=== PATIENT | female | born 1975 | race Caucasian/White ===

== ENCOUNTER 2016-08-31 06:26 | Inpatient (IN) | payer OTHER ==
[2016-08-31] MEDS ORDERED: SODIUM CHLORIDE 0.9% 500 ML IV STA (06:45)
--- NOTE | 2016-08-31 06:48 | ED ---
General Adult HPI - General Source: patient, RN notes reviewed Mode of arrival: ambulatory Limitations: no limitations <Davion Iqbal - Last Filed: 08/31/16 06:48> <Nadeem Saunders - Last Filed: 08/31/16 10:30> - General Chief complaint: Neuro Symptoms/Deficit Stated complaint: right side numbness Time Seen by Provider: 08/31/16 06:35 - History of Present Illness Initial comments: This is a 40-year-old female presents to the emergency department with past medical history significant for coronary artery disease with a stent, hypertension, and hypercholesterolemia. Patient states she went to bed last night just after she had an episode of chest pain which she took a nitroglycerin for. Patient states the pain went away she went to bed. Patient states this is her typical angina and nothing was different about this episode of angina. Patient states when she awoke this morning at about 6:00 she had numbness and weakness to her right leg. Patient states it was difficult for her to complete because of the weakness in the leg she denies any weakness or numbness in the right arm. Patient denies any visual disturbance does not note any facial drooping. Patient has no slurred speech. Patient denies any recent fever or chills. Patient denies any chest pain currently patient denies any difficulty breathing shortness breath. Patient denies recent fever or chills or cough. Patient denies abdominal pain patient denies nausea vomiting or diarrhea. Patient denies headache. (Davion Iqbal) - Related Data Home Medications Medication Instructions Recorded Confirmed Atorvastatin [Lipitor] 80 mg PO DAILY 07/14/14 08/31/16 Clopidogrel Bisulfate [Plavix] 75 mg PO DAILY 07/14/14 08/31/16 amLODIPine BESYLATE [Amlodipine 5 mg PO DAILY 07/14/14 08/31/16 Besylate] Aspirin 81 mg PO DAILY 11/14/14 08/31/16 Fluticasone Nasal [place] [Flonase 2 spr EA NOSTRIL BID 12/17/15 08/31/16 Nasal [place]] Lisinopril [Prinivil] 20 mg PO BID 12/17/15 08/31/16 Lisinopril [Zestril] 5 mg PO BID 12/17/15 08/31/16 Previous Rx's Medication Instructions Recorded Nitroglycerin Sl Tabs [Nitrostat] 0.4 mg SUBLINGUAL Q5M PRN #0 tab 11/16/14 Albuterol Nebulized [Ventolin 2.5 mg INHALATION Q4H #20 ampul 12/17/15 Nebulized] Azithromycin [Zithromax] 0 mg PO DIRECTED #6 tab 12/17/15 guaiFENesin/CODEINE PHOSPHATE 10 ml PO Q6HR PRN #120 ml 12/17/15 [Cheratussin AC Syrup] Allergies Allergy/AdvReac Type Severity Reaction Status Date / Time No Known Allergies Allergy Verified 08/31/16 06:37 Review of Systems ROS Other: All systems not noted in ROS Statement are negative. <Davion Iqbal - Last Filed: 08/31/16 06:48> ROS Other: All systems not noted in ROS Statement are negative. <Nadeem Saunders - Last Filed: 08/31/16 10:30> ROS Statement: Those systems with pertinent positive or pertinent negative responses have been documented in the HPI. Past Medical History Past Medical History: Coronary Artery Disease (CAD), Chest Pain / Angina, Hyperlipidemia, Hypertension, Myocardial Infarction ([place]), Pneumonia Additional Past Medical History / Comment(s): back pain History of Any Multi-Drug Resistant Organisms: None Reported Past Surgical History: Section, Heart Catheterization With Stent Additional Past Surgical History / Comment(s): left leg sx Past Psychological History: No Psychological Hx Reported, Anxiety, Depression Smoking Status: Current every day smoker Past Alcohol Use History: None Reported Past Drug Use History: None Reported <Davion Iqbal - Last Filed: 08/31/16 06:48> General Exam Limitations: no limitations <Davion Iqbal - Last Filed: 08/31/16 06:48> <Nadeem Saunders - Last Filed: 08/31/16 10:30> - General Exam Comments Initial Comments: GENERAL: Patient is well-developed and well-nourished. Patient is nontoxic and well- hydrated and is in mild distress. ENT: Neck is soft and supple. No significant lymphadenopathy is noted. Oropharynx is clear. Moist mucous membranes. Neck has full range of motion without eliciting any pain. EYES: The sclera were anicteric and conjunctiva were pink and moist. Extraocular movements were intact and pupils were equal round and reactive to light. Eyelids were unremarkable. PULMONARY: Unlabored respirations. Good breath sounds bilaterally. No audible rales rhonchi or wheezing was noted. CARDIOVASCULAR: There is a regular rate and rhythm without any murmurs gallops or rubs. ABDOMEN: Soft and nontender with normal bowel sounds. No palpable organomegaly was noted. There is no palpable pulsatile mass. SKIN: Skin is clear with no lesions or rashes and otherwise unremarkable. NEUROLOGIC: Patient is alert and oriented x3. Cranial nerves II through XII are grossly intact. Patient has difficulty with plantar flexion and flexing at the hip. Patient also says her sensation of the right leg is decreased when compared to the left leg but she can feel the leg.. Normal speech, volume and content. Symmetrical smile. MUSCULOSKELETAL: Normal extremities with adequate strength and full range of motion. LYMPHATICS: No significant lymphadenopathy is noted PSYCHIATRIC: Normal psychiatric evaluation. (Davion Iqbal) Course <Davion Iqbal - Last Filed: 08/31/16 06:48> <Nadeem Saunders - Last Filed: 08/31/16 10:30> Vital Signs 08/31/16 08/31/16 08/31/16 06:34 07:13 07:44 Temperature 97.9 F Pulse Rate 103 H 97 98 Respiratory 22 18 18 Rate Blood Pressure 117/69 141/82 128/59 O2 Sat by Pulse 97 100 Oximetry 08/31/16 08/31/16 08:44 09:44 Temperature Pulse Rate 93 88 Respiratory 18 18 Rate Blood Pressure 132/65 137/63 O2 Sat by Pulse 98 96 Oximetry - Reevaluation(s) Reevaluation #1: 08/31/16 10:25 Reevaluation patient initially shows some improvement and movement she still had a lot of back pain. She did state she was supposed be seen a neurologist in 2 days for evaluation of her back pain (Nadeem Saunders) Reevaluation #2: 08/31/16 10:27 I did a long discussion with patient and her . Patient be admitted with consultation by neurology. (Nadeem Saunders) Medical Decision Making <Davion Iqbal - Last Filed: 08/31/16 06:48> - Lab Data Result diagrams: 08/31/16 07:10 08/31/16 07:10 <Nadeem Saunders - Last Filed: 08/31/16 10:30> - Medical Decision Making Dr. Chip martinez taking over the care of this patient at 7 AM (Davion Iqbal) - Lab Data Lab Results 08/31/16 08/31/16 08/31/16 Range/Units 07:10 07:10 07:10 WBC 14.5 H (3.8-10.6) k/uL RBC 4.66 (3.80-5.40) m/uL Hgb 14.3 (11.4-16.0) gm/dL Hct 43.3 (34.0-46.0) % MCV 92.9 (80.0-100.0) fL MCH 30.8 (25.0-35.0) pg MCHC 33.1 (31.0-37.0) g/dL RDW 12.9 (11.5-15.5) % Plt Count 349 (150-450) k/uL Neutrophils % 75 % Lymphocytes % 17 % Monocytes % 5 % Eosinophils % 2 % Basophils % 0 % Neutrophils # 10.8 H (1.3-7.7) k/uL Lymphocytes # 2.5 (1.0-4.8) k/uL Monocytes # 0.7 (0-1.0) k/uL Eosinophils # 0.2 (0-0.7) k/uL Basophils # 0.1 (0-0.2) k/uL PT (9.0-12.0) sec INR (<1.1) APTT (22.0-30.0) sec Sodium 140 (137-145) mmol/L Potassium 4.1 (3.5-5.1) mmol/L Chloride 104 (98-107) mmol/L Carbon Dioxide 23 (22-30) mmol/L Anion Gap 13 mmol/L BUN 20 H (7-17) mg/dL Creatinine 0.90 (0.52-1.04) mg/dL Est GFR (MDRD) Af Amer >60 (>60 ml/min/1.73 sqM) Est GFR (MDRD) Non-Af >60 (>60 ml/min/1.73 sqM) Glucose 128 H (74-99) mg/dL Calcium 9.8 (8.4-10.2) mg/dL Total Bilirubin 0.4 (0.2-1.3) mg/dL AST 23 (14-36) U/L ALT 60 H (9-52) U/L Alkaline Phosphatase 124 (38-126) U/L Total Creatine Kinase <20 L (30-135) U/L CK-MB (CK-2) <0.2 (0.0-2.4) ng/mL CK-MB (CK-2) Rel Index Troponin I <0.012 (0.000-0.034) ng/mL Total Protein 6.8 (6.3-8.2) g/dL Albumin 3.9 (3.5-5.0) g/dL 08/31/16 Range/Units 07:10 WBC (3.8-10.6) k/uL RBC (3.80-5.40) m/uL Hgb (11.4-16.0) gm/dL Hct (34.0-46.0) % MCV (80.0-100.0) fL MCH (25.0-35.0) pg MCHC (31.0-37.0) g/dL RDW (11.5-15.5) % Plt Count (150-450) k/uL Neutrophils % % Lymphocytes % % Monocytes % % Eosinophils % % Basophils % % Neutrophils # (1.3-7.7) k/uL Lymphocytes # (1.0-4.8) k/uL Monocytes # (0-1.0) k/uL Eosinophils # (0-0.7) k/uL Basophils # (0-0.2) k/uL PT 9.6 (9.0-12.0) sec INR 0.9 (<1.1) APTT 22.5 (22.0-30.0) sec Sodium (137-145) mmol/L Potassium (3.5-5.1) mmol/L Chloride (98-107) mmol/L Carbon Dioxide (22-30) mmol/L Anion Gap mmol/L BUN (7-17) mg/dL Creatinine (0.52-1.04) mg/dL Est GFR (MDRD) Af Amer (>60 ml/min/1.73 sqM) Est GFR (MDRD) Non-Af (>60 ml/min/1.73 sqM) Glucose (74-99) mg/dL Calcium (8.4-10.2) mg/dL Total Bilirubin (0.2-1.3) mg/dL AST (14-36) U/L ALT (9-52) U/L Alkaline Phosphatase (38-126) U/L Total Creatine Kinase (30-135) U/L CK-MB (CK-2) (0.0-2.4) ng/mL CK-MB (CK-2) Rel Index Troponin I (0.000-0.034) ng/mL Total Protein (6.3-8.2) g/dL Albumin (3.5-5.0) g/dL Disposition <Davion Iqbal - Last Filed: 08/31/16 06:48> <Nadeem Saunders - Last Filed: 08/31/16 10:30> Clinical Impression: Transient cerebral ischemia, Lumbar radiculopathy Disposition: ADMITTED IP TO THIS HOSP Condition: Stable Referrals: Bela Gant MD [Primary Care Provider] - 1-2 days
[2016-08-31 07:14] VITALS: RESP 18
[2016-08-31 07:22] LABS: Basophils # (A) 0.1 k/uL (0-0.2); Basophils % (A) 0 %; CH 30.5; CHCM 32.9; Eosinophils # (A) 0.2 k/uL (0-0.7); Eosinophils % (A) 2 %; HCT 43.3 % (34.0-46.0); HDW 2.11; HGB 14.3 gm/dL (11.4-16.0); Luc # (Auto) 0.25; Luc % (Auto) 2; Lymphocytes # (A) 2.5 k/uL (1.0-4.8); Lymphocytes % (A) 17 %; MCH 30.8 pg (25.0-35.0); MCHC 33.1 g/dL (31.0-37.0); MCV 92.9 fL (80.0-100.0); Monocytes # (A) 0.7 k/uL (0-1.0); Monocytes % (A) 5 %; Neutrophils # (A) 10.8 k/uL (1.3-7.7); Neutrophils % (A) 75 %; RBC 4.66 m/uL (3.80-5.40); RDW 12.9 % (11.5-15.5); WBC 14.5 k/uL (3.8-10.6); WBC (Perox) 14.26
[2016-08-31 07:31] LABS: ALT 60 U/L (9-52); AST 23 U/L (14-36); Alkaline Phosphatase 124 U/L (38-126); Anion Gap 13 mmol/L; Blood Urea Nitrogen 20 mg/dL (7-17); Calcium 9.8 mg/dL (8.4-10.2); Carbon Dioxide 23 mmol/L (22-30); Chloride 104 mmol/L (98-107); Glucose 128 mg/dL (74-99); Non-African American GFR(MDRD) >60 (>60 ml/min/1.73 sqM); Potassium 4.1 mmol/L (3.5-5.1); Sodium 140 mmol/L (137-145); Total Bilirubin 0.4 mg/dL (0.2-1.3); Total Protein 6.8 g/dL (6.3-8.2)
[2016-08-31 07:33] LABS: INR 0.9 (<1.1); Partial Thromboplastin Time 22.5 sec (22.0-30.0); Prothrombin Time 9.6 sec (9.0-12.0)
[2016-08-31 07:45] LABS: Creatine Kinase <20 U/L (30-135)
[2016-08-31 07:57] LABS: Creatine Kinase MB <0.2 ng/mL (0.0-2.4); Troponin I <0.012 ng/mL (0.000-0.034)
--- NOTE | 2016-08-31 08:28 | CT ---
EXAMINATION TYPE: CT brain wo con DATE OF EXAM: 08/31/2016 8:25 AM COMPARISON: CT brain March 23, 2014 HISTORY: Patient unable to move her right leg, no strength. Neural deficits CT DLP: 1108.4 mGycm Automated exposure control for dose reduction was used. FINDINGS: There is no acute intracranial hemorrhage, mass effect, or midline shift identified. The ventricles and sulci are within normal limits in size. Estrella-white matter differentiation is preserved. The globe s are intact bilaterally. Some opacification right sphenoid sinus could reflect cyst or polyp or patc hy sinus disease on axial image 10 otherwise paranasal sinuses are clear. Punctate skin densities ove r nasal bridge are redemonstrated. IMPRESSION: No acute intracranial hemorrhage, mass effect, or midline shift is seen.
[2016-08-31] MEDS ORDERED: KETOROLAC 30 MG/ML 1 ML VIAL IVP STA (09:03)
--- NOTE | 2016-08-31 09:12 | XR ---
EXAMINATION TYPE: XR chest 2V DATE OF EXAM: 08/31/2016 8:53 AM COMPARISON: Chest x-ray December 17, 2015. HISTORY: History of COPD, cardiac coronary stents, and CHF presents with numbness and weakness. TECHNIQUE: Frontal and lateral views of the chest are obtained. FINDINGS: There is no focal air space opacity, pleural effusion, or pneumothorax seen. The cardiac silhouette size is within normal limits. The osseous structures are intact. IMPRESSION: No acute cardiopulmonary process. No significant change from prior.
[2016-08-31] MEDS ORDERED: SODIUM CHLORIDE 0.9% 1,000 ML IV STA (09:17)
[2016-08-31] MEDS ORDERED: NITROGLYCERIN SL TABS 0.4 MG TAB SUBLINGUAL PRN (10:32)
[2016-08-31] MEDS: SODIUM CHLORIDE 0.9% 1,000 ML IV SCH (10:56)
[2016-08-31] MEDS: GABAPENTIN 400 MG CAP PO SCH ×3 (13:31→21:41)
[2016-08-31] MEDS: HYDROcodone/APAP 7.5-325MG 1 EACH TAB PO PRN ×2 (14:17→21:44)
--- NOTE | 2016-08-31 15:32 | US ---
EXAMINATION TYPE: US carotid duplex BILAT DATE OF EXAM: 08/31/2016 2:08 PM COMPARISON: CT Brain on PACS CLINICAL HISTORY: right leg weakness, bilateral loss of vision and hearing for short period of time; cholesterol deposits are noted on bilateral eyelids; prior MA 2010 per patient; stenosis per order; c igarette smoker x 1ppd x 20 years per patient EXAM MEASUREMENTS: RIGHT: Peak Systolic Velocity (PSV) cm/sec ----- Right CCA: 104.2 ----- Right ICA: 108.1 ----- Right ECA: 117.7 ICA/CCA ratio: 1.0 RIGHT: End Diastole cm/sec ----- Right CCA: 28.9 ----- Right ICA: 43.4 ----- Right ECA: 7.9 LEFT: Peak Systolic Velocity (PSV) cm/sec ----- Left CCA: 119.4 ----- Left ICA: 106.2 ----- Left ECA: 106.1 ICA/CCA ratio: 0.9 LEFT: End Diastole cm/sec ----- Left CCA: 38.6 ----- Left ICA: 43.2 ----- Left ECA: 17.5 VERTEBRALS (direction of flow): Right Vertebral: Antegrade Left Vertebral: Antegrade TECHNOLOGIST IMPRESSION: Mild to moderate intimal wall thickening is noted at bilateral carotid bifu rcation, but PSV is within normal limits bilaterally. IMPRESSION: The images and velocities suggest 10- 15% stenosis in both internal carotid arteries. Th ere is normal antegrade flow in both vertebral arteries. Criteria for Assigning % of Stenosis / Diameter reduction (Estimation based on the indirect measurements of the internal carotid artery velocities (ICA PSV). 1. Normal (no stenosis)=ICA PSV < 125 cm/s: ratio < 2.0: ICA EDV<40 cm/s. 2. Less than 50% stenosis=ICA PSV < 125 cm/s: ratio < 2.0: ICA EDV<40 cm/s. 3. 50 to 69% stenosis=ICA PSV of 125 to 230 cm/s: ration 2.0 ? 4.0: ICA EDV 40-100 cm/s. 4. Greater than 70% stenosis to near occlusion= ICA PSV > 230 cm/s: ratio > 4.0: ICA EDV > 100 cm/s. 5. Near occlusion= ICA PSV velocities may be low or undetectable: variable ratio and ICA EDV. 6. Total occlusion=unable to detect flow.
--- NOTE | 2016-08-31 15:37 | P.CNNES ---
History of Present Illness Consult date: 08/31/16 Reason for Consult: TIA and right sided lumbar radiculopathy. History of Present Illness: This patient is a 40-year-old right-handed white female who apparently early this morning awoke with numbness involving her right leg. Patient states the entire leg was numb and weak. She was unable to move the leg due to the significant weakness. She awoke at about 6 AM this morning and could not get up to stand due to this significant numbness and weakness involving the right leg. She does have a history of chronic low back pain and chronic pain syndrome for which she is being treated by Dr. Sosa. She is on pain medication prescribed by him. She was thinking this may have been an episode of pinched nerve however review of her MRI of the lumbar spine done on 2015 revealed very minimal changes in the lumbar spine. There was no significant nerve root impingement. She has been followed in the pain clinic with Dr. Sosa since this reevaluation. She apparently does not take any aspirin on any regular basis for secondary stroke prevention. She did not experience any facial drooping. Apparently she did experience some chest pain for which she took a nitroglycerin. She does follow in the cardiology clinic and does have a history of coronary artery disease with stent placement. Patient did not slur her speech. She did complain of visual problems in which she had blurred vision involving both eyes. This episode has since completely was all. Review of her MRI of the lumbar spine done in June of last year does not suggest acute lumbar radiculopathy based on these results. Patient has regained strength of the right leg. Her vision also is back to baseline. Her clinical history is now consistent with probable TIA syndrome affecting the left hemisphere. We have recommended a complete stroke evaluation for the patient. Her overall prognosis at this time remains very guarded. Neurology is now been consulted for further evaluation and recommendations. Review of Systems Constitutional: Denies chills, Denies fever Eyes: denies blurred vision, denies pain Ears, nose, mouth and throat: Denies headache, Denies sore throat Cardiovascular: Denies chest pain, Denies shortness of breath Respiratory: Denies cough Gastrointestinal: Denies abdominal pain, Denies diarrhea, Denies nausea, Denies vomiting Genitourinary: Denies dysuria, Denies hematuria Musculoskeletal: Denies myalgias Integumentary: Denies pruritus, Denies rash Neurological: Reports loss of vision, Reports transient paralysis, Denies numbness, Denies weakness Psychiatric: Denies anxiety, Denies depression Endocrine: Denies fatigue, Denies weight change Past Medical History Past Medical History: Coronary Artery Disease (CAD), Chest Pain / Angina, Heart Failure, Hyperlipidemia, Hypertension, Myocardial Infarction ([place]), Pneumonia Additional Past Medical History / Comment(s): back pain Last Myocardial Infarction Date:: 08-18-2011 History of Any Multi-Drug Resistant Organisms: None Reported Past Surgical History: Section, Cholecystectomy, Heart Catheterization With Stent Additional Past Surgical History / Comment(s): left leg sx Past Anesthesia/Blood Transfusion Reactions: Previous Problems w/ Anesthesia Additional Past Anesthesia/Blood Transfusion Reaction / Comment(s): HARD TIME WAKING UP AFTER ANESTHESIA. Date of Last Stent Placement:: 08-18-2011 Past Psychological History: Anxiety, Depression Smoking Status: Current every day smoker Past Alcohol Use History: None Reported Past Drug Use History: None Reported - Past Family History Mother History Unknown: Yes Father History Unknown: Yes Medications and Allergies Home Medications Medication Instructions Recorded Confirmed Type Atorvastatin [Lipitor] 80 mg PO DAILY 07/14/14 08/31/16 History Clopidogrel Bisulfate [Plavix] 75 mg PO DAILY 07/14/14 08/31/16 History Aspirin 81 mg PO DAILY 11/14/14 08/31/16 History Lisinopril [Prinivil] 20 mg PO BID 12/17/15 08/31/16 History Albuterol Inhaler [Ventolin Hfa 1 - 2 puff INHALATION RT-Q6H PRN 08/31/16 History Inhaler] Cyclobenzaprine [Flexeril] 10 mg PO TID 08/31/16 08/31/16 History Gabapentin 800 mg PO QID 08/31/16 08/31/16 History HYDROcodone/APAP 7.5-325MG [[place] 1 tab PO TID PRN 08/31/16 08/31/16 History 7.5-325] Loratadine [Claritin] 10 mg PO DAILY 08/31/16 08/31/16 History Allergies Allergy/AdvReac Type Severity Reaction Status Date / Time No Known Allergies Allergy Verified 08/31/16 11:11 Physical Examination - Vital Signs Vital Signs: Vital Signs Temp Pulse Resp BP Pulse Ox 08/31/16 11:48 96.9 F L 97 18 117/75 100 08/31/16 11:14 98.8 F Intake and Output 08/30/16 08/31/16 08/31/16 22:59 06:59 14:59 Intake Total 100 Balance 100 Intake: Oral 100 Other: Weight 139.5 kg Patient Weight 09/01/16 06:59 Weight 139.5 kg - Constitutional General appearance: average body habitus, cooperative - EENT EENT: PERRL, mucous membranes moist - Respiratory Respiratory: lungs clear, normal breath sounds - Cardiovascular Cardiovascular: regular rate, normal S1, normal S2 Extremities: no peripheral edema bilaterally - Gastrointestinal Gastrointestinal: normoactive bowel sounds - Integumentary Integumentary: normal - Neurologic Cranial nerve examination: PERRL, EOMI, VFF, V1/V2/V3 grossly intact, face symmetric, tongue midline, intact gag reflex, intact corneal reflex, normal palatal elevation Speech examination: intact Sensorimotor examination: intact Motor examination - right side: 4/5: hip flexors, knee extensors, dorsiflexion, toe extension (EHL), plantarflexion, 5/5: biceps, triceps, wrist flexion, wrist extension, team psychologist Motor examination - left side: 5/5: biceps, triceps, wrist flexion, wrist extension, team psychologist, hip flexors, knee extensors, dorsiflexion, toe extension (EHL) , plantarflexion Detailed sensory examination: intact Reflex and gait examination: intact Reflexes: 1+: ankle, bicep, knee, tricep - Musculoskeletal Musculoskeletal: no pain - Psychiatric Psychiatric: mood/affect appropriate Results - Laboratory Findings CBC and BMP: 08/31/16 07:10 08/31/16 07:10 Assessment and Plan (1) TIA (transient ischemic attack) Status: Acute Code(s): G45.9 - TRANSIENT CEREBRAL ISCHEMIC ATTACK, UNSPECIFIED (2) Vision loss, bilateral Status: Acute Code(s): H54.3 - UNQUALIFIED VISUAL LOSS, BOTH EYES (3) Coronary artery disease Status: Acute Code(s): I25.10 - ATHSCL HEART DISEASE OF [place] CORONARY ARTERY W/O ANG PCTRS (4) Hyperlipidemia Status: Acute Code(s): E78.5 - HYPERLIPIDEMIA, UNSPECIFIED Plan: This patient is a 40-year-old female admitted with episode of right-sided leg weakness and numbness. She also experienced episode of bilateral vision loss. Symptoms resolved very quickly early this morning. She was brought into the emergency room and underwent a computed tomography scan of the brain. CAT scan of the brain failed to reveal any evidence of acute stroke or hemorrhage. There was concern for possibility of lumbar radiculopathy. She underwent MRI of the lumbar spine back on 06/25/2016 which was reviewed and is negative for any significant disc herniation or compressive neuropathy. Patient symptoms of vision have completely resolved. She still complains of some numbness in the right leg. She does have history of chronic low back pain and is followed in the pain clinic with Dr. Sosa. Her neurological examination at this time is nonfocal. Would recommend a complete stroke evaluation for the patient. She should be maintained on Plavix aspirin for secondary stroke prevention. We will await further recommendations from the mold hoister for her chest pain symptoms. Would recommend PT OT evaluation possible subacute rehab for the patient. Her overall prognosis at this time remains very guarded. Time with Patient: Greater than 30
[2016-08-31] MEDS: ALBUTEROL NEBULIZED 2.5 MG/3 ML INHALATION SCH ×4 (16:21→23:58)
[2016-08-31] MEDS: CYCLOBENZAPRINE 10 MG TAB PO SCH ×2 (16:25→21:41)
[2016-08-31] MEDS ORDERED: LISINOPRIL 20 MG TAB PO SCH (21:00)
[2016-08-31] MEDS ORDERED: LISINOPRIL 5 MG TAB PO SCH (21:00)
[2016-09-01] MEDS: ALBUTEROL NEBULIZED 2.5 MG/3 ML INHALATION SCH ×5 (03:31→20:38)
[2016-09-01] MEDS: HYDROcodone/APAP 7.5-325MG 1 EACH TAB PO PRN ×2 (05:28→22:06)
[2016-09-01 06:22] LABS: CH 30.3; CHCM 32.2; HCT 40.4 % (34.0-46.0); HDW 2.05; MCH 30.5 pg (25.0-35.0); MCHC 32.3 g/dL (31.0-37.0); MCV 94.5 fL (80.0-100.0); RBC 4.28 m/uL (3.80-5.40); WBC 9.8 k/uL (3.8-10.6)
[2016-09-01 06:33] LABS: Anion Gap 8 mmol/L; Blood Urea Nitrogen 16 mg/dL (7-17); Calcium 9.1 mg/dL (8.4-10.2); Carbon Dioxide 28 mmol/L (22-30); Chloride 105 mmol/L (98-107); Glucose 103 mg/dL (74-99); Non-African American GFR(MDRD) >60 (>60 ml/min/1.73 sqM); Potassium 4.9 mmol/L (3.5-5.1); Sodium 141 mmol/L (137-145)
[2016-09-01] MEDS: LISINOPRIL 20 MG TAB PO SCH (08:17)
[2016-09-01] MEDS: CLOPIDOGREL 75 MG TAB PO SCH (08:17)
[2016-09-01] MEDS: ASPIRIN 325 MG TAB PO SCH (08:17)
[2016-09-01] MEDS: CYCLOBENZAPRINE 10 MG TAB PO SCH ×3 (08:17→22:06)
[2016-09-01] MEDS: ATORVASTATIN 80 MG TAB PO SCH (08:17)
[2016-09-01] MEDS: amLODIPine 5 MG TAB PO SCH (08:17)
[2016-09-01] MEDS: GABAPENTIN 400 MG CAP PO SCH ×4 (08:18→22:06)
[2016-09-01] MEDS ORDERED: PANTOPRAZOLE 40 MG/10 ML VIAL IVP SCH (09:00)
--- NOTE | 2016-09-01 11:07 | ECHOF ---
Referral Reason:TIA MEASUREMENTS -------- HEIGHT: 154.9 cm WEIGHT: 140.6 kg BP: 138/102 RVIDd: 2.8 cm (< 3.3) IVSd: 1.1 cm (0.6 - 1.1) LVIDd: 3.9 cm (3.9 - 5.3) LVPWd: 1.1 cm (0.6 - 1.1) IVSs: 1.6 cm LVIDs: 2.4 cm LVPWs: 1.4 cm LA Diam: 3.2 cm (2.7 - 3.8) LAESV Index (A-L): 18.12 ml/m Ao Diam: 2.9 cm (2.0 - 3.7) AV Cusp: 2.0 cm (1.5 - 2.6) MV EXCURSION: 14.881 mm (> 18.000) MV EF SLOPE: 53 mm/s (70 - 150) EPSS: 0.4 cm MV E Gerry: 1.32 m/s MV DecT: 200 ms MV A Gerry: 0.89 m/s MV E/A Ratio: 1.48 FINDINGS -------- Sinus rhythm. This was a technically adequate study. The left ventricular size is normal. There is borderline concentric left ventricular hypertrophy. Overall left ventricular systolic function is normal with, an EF between 60 - 65 %. The right ventricle is normal in size. The left atrium is normal in size. Normal LA size by volume 22+/-6 ml/m2. The right atrium is normal in size. Mild mitral annular calcification present. Right ventricular systolic pressure is normal at < 35 mmHg. The pulmonic valve was not well visualized. The aortic root size is normal. Normal inferior vena cava with normal inspiratory collapse consistent with estimated right atrial pressure of 5 mmHg. There is no pericardial effusion. CONCLUSIONS -------- 1. Sinus rhythm. 2. Right ventricular systolic pressure is normal at < 35 mmHg. 3. The pulmonic valve was not well visualized. 4. The aortic root size is normal. 5. Normal inferior vena cava with normal inspiratory collapse consistent with estimated right atrial pressure of 5 mmHg. 6. There is no pericardial effusion. 7. This was a technically adequate study. 8. The left ventricular size is normal. 9. There is borderline concentric left ventricular hypertrophy. 10. Overall left ventricular systolic function is normal with, an EF between 60 - 65 %. 11. The right ventricle is normal in size. 12. Normal LA size by volume 22+/-6 ml/m2. 13. The right atrium is normal in size. 14. Mild mitral annular calcification present. [employer] SPECIALIST: Jojo Cheney RDCS
--- NOTE | 2016-09-01 11:28 | HP ---
DATE OF ADMISSION: 08/31/2016 The patient is a 40 -year-old female ( ) came in with numbness of the right leg which started ( ) morning. The patient still complaining of numbness. The patient denying any weakness anywhere in the body. The patient denied any headache. Denied any vomiting. Patient denied any speech abnormality, seizure-like activity, loss of bowel or bladder incontinence. The patient also has symptoms of chest pressure-like sensation in the midsternal area, nonradiating, epigastric and retrosternal area about 5/10 in severity. Patient states she was cold and a bid diaphoretic. Denied any shortness of breath. She was complaining of lightheadedness and nausea. EKG did not show any acute ST-T wave changes although two more sets of troponins will be obtained tomorrow ( ) EKGs will be obtained ( ). The patient does have a history of chronic pain syndrome. Patient had MRI in the month of June which did not show any significant evidence of low back pain or discoloration contributing to her numbness in the right leg. Did not show any significant lumbar radiculopathy. REVIEW OF SYSTEMS: CONSTITUTIONAL: No fever, no malaise, no fatigue. HEENT: No recent visual problems or hearing problems. Denied any sore throat. CARDIOVASCULAR: As described in HPI. Patient denied any shortness of breath and the patient chest pain is nonpleuritic in nature, not associated with food. PULMONARY: No shortness of breath, no cough, no hemoptysis. GASTROINTESTINAL: No diarrhea, no nausea, no vomiting, no abdominal pain. Normoactive bowel sounds. NEUROLOGICAL: As described in HPI. HEMATOLOGICAL: Denies any bleeding or petechiae. GENITOURINARY: Denies any burning micturition, frequency, or urgency. MUSCULOSKELETAL/RHEUMATOLOGICAL: Denies any joint pain, swelling, or any muscle pain. ENDOCRINE: Denies any polyuria or polydipsia. The rest of the 14 point review of systems is negative. Past medical history is significant for coronary artery disease, congestive heart failure, hyperlipidemia, hypertension, myocardial infarction, section, cholecystectomy, cardiac catheterization with stent placement in the past. Anxiety. Depression. SOCIAL HISTORY: Patient continues to smoke. Denied any alcohol abuse or drug abuse. FAMILY HISTORY: Significant for mother with coronary artery disease and hypertension. Home medications include: 1. Atorvastatin. 2. Plavix. 3. Aspirin. 4. Lisinopril. 5. Albuterol. 6. Cyclobenzaprine. 7. The patient's last stent was placed in 2012. 8. Gabapentin. 9. Hydrocodone. 10. Acetaminophen. 11. Loratadine. ALLERGIES: No known drug allergies. PHYSICAL EXAMINATION: VITAL SIGNS: Temperature 96.9, pulse 97, respiratory rate 18, blood pressure ( ), saturating at 100% on room air. GENERAL: The patient is alert and oriented x3, not in any acute distress. Well developed, well nourished. HEENT: Pupils are round and equally reacting to light. EOMI. No scleral icterus. No conjunctival pallor. Normocephalic, atraumatic. No pharyngeal erythema. No thyromegaly. CARDIOVASCULAR: S1 and S2 present. No murmurs, rubs, or gallops. PULMONARY: Chest is clear to auscultation, no wheezing or crackles. ABDOMEN: Soft, nontender, nondistended, normoactive bowel sounds. No palpable organomegaly. MUSCULOSKELETAL: No joint swelling or deformity. EXTREMITIES: No cyanosis, clubbing, or pedal edema. NEUROLOGICAL: Gross neurological examination did not reveal any focal deficits. SKIN: No rashes. LABORATORY DATA: CBC, BMP, no significant abnormality was appreciated. CT of the head did not show any significant abnormality. ASSESSMENT AND PLAN: 1. Numbness in the right lower extremity; unsure of the exact etiology. The patient is being worked up for transient ischemic attack. Neurology was consulted. Carotid Doppler essentially within normal limits. I will obtain an echocardiogram. 2. Chest pain. Patient does have some atypical features of chest pain, atypical features of cardiac pain. The patient needs to be ruled out ( ) angina. We will at least need a stress test considering her previous history and risk factors. 3. Hyperlipidemia. 4. Obesity, counselling was provided. 5. Hypertension. For above-mentioned chronic problems ( ) continue her home medications. Patient's primary care physician is Dr. Gant.
[2016-09-01] MEDS: SODIUM CHLORIDE 0.9% 1,000 ML IV SCH (11:41)
--- NOTE | 2016-09-01 17:28 | P.CRDCN ---
History of Present Illness Consult date: 09/01/16 Chief complaint: Chest discomfort History of present illness: This is a pleasant 40-year-old female patient who sees Dr. Dr. Barajas as an outpatient with a past medical history significant for CAD and prior stenting of the left circumflex, hypertension, dyslipidemia, and significant history of smoking, presented to the hospital complaining of chest discomfort and right leg weakness. The patient has been experiencing intermittent episodes of chest discomfort, started about 6 months ago, where she described a pressure across the chest without any radiation to the arm or neck or shoulder and without any associated symptoms. She stated that the discomfort is not exertional. But she stated at the same time that it was resolved by nitroglycerin lately. Beside that yesterday she experienced an episode of right leg weakness which was resolved on its own. The EKG showed sinus rhythm with diffuse nonspecific changes. The cardiac enzymes came in to be unremarkable. The patient was seen and evaluated by the neurology service and she has been having a stroke workup. She underwent a heart catheterization in October 2014 and that showed patent stent in the left circumflex and there was a plaque in the proximal left anterior descending artery. I will recheck with a neurology service this safety of proceeding with a stress test to rule out any severe underlying CAD. If it's not as inpatient she might be able to have it as an outpatient. Past Medical History Past Medical History: Coronary Artery Disease (CAD), Chest Pain / Angina, Heart Failure, Hyperlipidemia, Hypertension, Myocardial Infarction ([place]), Pneumonia Additional Past Medical History / Comment(s): back pain Last Myocardial Infarction Date:: 08-18-2011 History of Any Multi-Drug Resistant Organisms: None Reported Past Surgical History: Section, Cholecystectomy, Heart Catheterization With Stent Additional Past Surgical History / Comment(s): left leg sx Past Anesthesia/Blood Transfusion Reactions: Previous Problems w/ Anesthesia Additional Past Anesthesia/Blood Transfusion Reaction / Comment(s): HARD TIME WAKING UP AFTER ANESTHESIA. Date of Last Stent Placement:: 08-18-2011 Past Psychological History: Anxiety, Depression Smoking Status: Current every day smoker Past Alcohol Use History: None Reported Past Drug Use History: None Reported - Past Family History Mother History Unknown: Yes Father History Unknown: Yes Medications and Allergies Home Medications Medication Instructions Recorded Confirmed Type Atorvastatin [Lipitor] 80 mg PO DAILY 07/14/14 08/31/16 History Clopidogrel Bisulfate [Plavix] 75 mg PO DAILY 07/14/14 08/31/16 History Aspirin 81 mg PO DAILY 11/14/14 08/31/16 History Lisinopril [Prinivil] 20 mg PO BID 12/17/15 08/31/16 History Albuterol Inhaler [Ventolin Hfa 1 - 2 puff INHALATION RT-Q6H PRN 08/31/16 History Inhaler] Cyclobenzaprine [Flexeril] 10 mg PO TID 08/31/16 08/31/16 History Gabapentin 800 mg PO QID 08/31/16 08/31/16 History HYDROcodone/APAP 7.5-325MG [[place] 1 tab PO TID PRN 08/31/16 08/31/16 History 7.5-325] Loratadine [Claritin] 10 mg PO DAILY 08/31/16 08/31/16 History Allergies Allergy/AdvReac Type Severity Reaction Status Date / Time No Known Allergies Allergy Verified 08/31/16 11:11 Physical Exam Vitals: Vital Signs Temp Pulse Pulse Resp BP Pulse Ox 09/01/16 16:00 97.6 F 94 18 109/58 97 09/01/16 13:04 78 18 09/01/16 12:52 76 18 09/01/16 11:42 106 H 18 125/76 99 09/01/16 08:28 76 09/01/16 08:06 78 09/01/16 08:00 96 18 125/76 100 09/01/16 04:00 97.6 F 89 18 138/102 97 09/01/16 00:00 96.9 F L 89 18 112/78 98 08/31/16 20:16 76 08/31/16 20:06 75 97 08/31/16 20:00 97.0 F L 99 18 150/76 98 Intake and Output 09/01/16 09/01/16 09/01/16 06:59 14:59 22:59 Other: # Voids 2 1 Weight 140.7 kg - Constitutional General appearance: no acute distress - Respiratory Respiratory: bilateral: CTA - Cardiovascular Rhythm: regular Heart sounds: normal: S1, S2 Results 09/01/16 05:49 09/01/16 05:49 Cardiac Enzymes 09/01/16 Range/Units 14:13 Troponin I <0.012 (0.000-0.034) ng/mL CBC 09/01/16 Range/Units 05:49 WBC 9.8 (3.8-10.6) k/uL RBC 4.28 (3.80-5.40) m/uL Hgb 13.0 (11.4-16.0) gm/dL Hct 40.4 (34.0-46.0) % Plt Count 288 (150-450) k/uL Comprehensive Metabolic Panel 09/01/16 Range/Units 05:49 Sodium 141 (137-145) mmol/L Potassium 4.9 (3.5-5.1) mmol/L Chloride 105 (98-107) mmol/L Carbon Dioxide 28 (22-30) mmol/L BUN 16 (7-17) mg/dL Creatinine 0.70 (0.52-1.04) mg/dL Glucose 103 H (74-99) mg/dL Calcium 9.1 (8.4-10.2) mg/dL Current Medications Generic Name Dose Route Start Last Admin Trade Name Freq PRN Reason Stop Dose Admin Acetaminophen/Hydrocodone Bitart 1 each 08/31/16 12:20 09/01/16 05:28 [place] 7.5-325 PO 1 each TID PRN Administration Pain Albuterol Sulfate 2.5 mg 08/31/16 12:00 09/01/16 16:21 Ventolin Nebulized INHALATION Not Given RT-Q4H KAYY Albuterol Sulfate 2.5 mg 08/31/16 12:20 Ventolin Nebulized INHALATION RT-Q6H PRN Shortness Of Breath Amlodipine Besylate 5 mg 09/01/16 09:00 09/01/16 08:17 Norvasc PO 5 mg DAILY KAYY Administration Aspirin 325 mg 09/01/16 09:00 09/01/16 08:17 Aspirin PO 325 mg DAILY KAYY Administration Atorvastatin Calcium 80 mg 09/01/16 09:00 09/01/16 08:17 Lipitor PO 80 mg DAILY KAYY Administration Clopidogrel Bisulfate 75 mg 09/01/16 09:00 09/01/16 08:17 Plavix PO 75 mg DAILY KAYY Administration Cyclobenzaprine HCl 10 mg 08/31/16 16:00 09/01/16 15:19 Flexeril PO 10 mg TID KAYY Administration Gabapentin 800 mg 08/31/16 13:00 09/01/16 12:40 Neurontin PO 800 mg QID KAYY Administration Sodium Chloride 1,000 mls @ 20 mls/hr 08/31/16 10:30 09/01/16 11:41 Saline 0.9% IV Not Given .Q24H KAYY Lisinopril 20 mg 09/01/16 09:00 09/01/16 08:17 Zestril PO 20 mg DAILY KAYY Administration Nitroglycerin 0.4 mg 08/31/16 10:32 Nitrostat SUBLINGUAL Q5M PRN Chest Pain Pantoprazole Sodium 40 mg 09/02/16 07:30 Protonix PO AC-BRKFST KAYY Intake and Output 09/01/16 09/01/16 09/01/16 06:59 14:59 22:59 Other: # Voids 2 1 Weight 140.7 kg 09/01/16 05:49 09/01/16 05:49 Assessment and Plan Plan: Assessment #1 recurrent episodes of chest discomfort #2 right leg weakness which has improved #3 CAD with prior LCX a stenting #4 significant history of smoking Plan #1 continue the patient on the current medical treatment #2 follow-up with the echocardiogram #3 follow-up with the patient
--- NOTE | 2016-09-01 20:31 | PN ---
Patient is a 40-year-old admitted with right lower ( ) came in with right lower limb numbness and patient underwent stroke workup all of which is negative. Patient is dual antiplatelet therapy and a statin and neurology evaluated the patient and neurology evaluated the patient and I do not have lipid panel available. Although I do not have any lipid panel available. Patient is awaiting evaluation by cardiology as she was complaining of pressure-like chest pain and considering his risk factors. REVIEW OF SYSTEMS: CARDIOVASCULAR: No chest pain, no orthopnea, no PND, no palpitations. PULMONARY: Denied any shortness of breath. No cough or hemoptysis. GASTROINTESTINAL: No diarrhea, nausea or vomiting. No abdominal pain. Normoactive bowel sounds. NEUROLOGIC: No headaches, no weakness, no numbness. Medications were reviewed. PHYSICAL EXAMINATION: Temperature 97.6, pulse of 78, respiratory rate of 18, blood pressure 111/58, saturating at 97% on room air. GENERAL: The patient is alert and oriented x3, not in any acute distress. Well developed, well nourished. HEENT: Pupils are round and equally reacting to light. EOMI. No scleral icterus. No conjunctival pallor. Normocephalic, atraumatic. No pharyngeal erythema. No thyromegaly. CARDIOVASCULAR: S1 and S2 present. No murmurs, rubs, or gallops. PULMONARY: Chest is clear to auscultation, no wheezing or crackles. ABDOMEN: Soft, nontender, nondistended, normoactive bowel sounds. No palpable organomegaly. MUSCULOSKELETAL: No joint swelling or deformity. EXTREMITIES: No cyanosis, clubbing, or pedal edema. NEUROLOGICAL: Gross neurological examination did not reveal any focal deficits. SKIN: No rashes. LABORATORY DATA: Second set of Troponin is negative. ASSESSMENT AND PLAN: 1. Numbness in the right leg and patient was evaluated for transient ischemic attack. 2. Chest pain. 3. Hyperlipidemia. 4. Obesity. 5. Hypertension. Management as mentioned in the interval history and for the rest of the above-mentioned chronic medical problems I will go ahead and continue her home medications. Awaiting cardiology recommendations regarding the chest pain. Patient may need a stress test.
--- NOTE | 2016-09-01 21:33 | P.PN ---
Subjective This patient is a 40-year-old female being evaluated for recent episode of TIA. The patient was seen in neurology consultation yesterday for right-sided weakness specifically involving the right leg. She does have a history of lumbar radiculopathy in the past however review of her most recent MRI of the lumbar spine failed to reveal any significant changes. Her right leg weakness today is much improved. She has been working with physical therapy and has been up and ambulating without much difficulties. She underwent a carotid Doppler ultrasound which came back negative for any carotid artery stenosis. Echocardiogram of the heart reveals her ejection fraction to be 60-65%. Cardiology was consult today for evaluation of chest discomfort. She has been complaining of recurrent atypical chest pain and we will await further recommendations from cardiology. Patient is to continue on aspirin daily for secondary stroke prevention. She did undergo EEG today which was reviewed and is normal for age. We reviewed all the test results today with the patient in detail. We will continue close follow-up for this patient during this admission. Objective - Vital Signs Vital signs: Vital Signs Temp 97.6 F 09/01/16 16:00 Pulse 90 09/01/16 20:55 Resp 18 09/01/16 16:00 BP 109/58 09/01/16 16:00 Pulse Ox 97 09/01/16 16:00 Intake & Output 09/01/16 09/01/16 09/02/16 06:59 18:59 06:59 Output Total 450 Balance -450 Weight 140.7 kg Output: Urine 450 Other: # Voids 2 1 - Exam Physical examination: PHYSICAL EXAMINATION: Patient is resting comfortably in bed. VITAL SIGNS: Blood pressure is [109/58]. Heart rate is [94]. Respiration is [18] . Temperature is [97.7]. HEENT: Head is atraumatic, neck is supple, there were no carotid bruits. CHEST: Lungs are clear to auscultation and percussion. CARDIAC: S1, S2 normal rate and rhythm. There is no murmur. ABDOMEN: Soft and nontender. Bowel sounds are present. EXTREMITIES: There is no pedal edema. Peripheral pulses are present. Neurological examination: Patient has a nonfocal neurological exam. - Labs CBC & Chem 7: 09/01/16 05:49 09/01/16 05:49 Labs: Abnormal Lab Results - Last 24 Hours (Table) 09/01/16 Range/Units 05:49 Glucose 103 H (74-99) mg/dL Assessment and Plan (1) TIA (transient ischemic attack) Status: Acute Code(s): G45.9 - TRANSIENT CEREBRAL ISCHEMIC ATTACK, UNSPECIFIED (2) Vision loss, bilateral Status: Acute Code(s): H54.3 - UNQUALIFIED VISUAL LOSS, BOTH EYES (3) Coronary artery disease Status: Acute Code(s): I25.10 - ATHSCL HEART DISEASE OF [place] CORONARY ARTERY W/O ANG PCTRS (4) Hyperlipidemia Status: Acute Code(s): E78.5 - HYPERLIPIDEMIA, UNSPECIFIED Plan: This patient is a 40-year-old female admitted with episode of right-sided leg weakness and numbness. She also experienced episode of bilateral vision loss. Symptoms resolved very quickly early this morning. She was brought into the emergency room and underwent a computed tomography scan of the brain. CAT scan of the brain failed to reveal any evidence of acute stroke or hemorrhage. There was concern for possibility of lumbar radiculopathy. She underwent MRI of the lumbar spine back on 06/25/2016 which was reviewed and is negative for any significant disc herniation or compressive neuropathy. Patient symptoms of vision have completely resolved. She still complains of some numbness in the right leg. She does have history of chronic low back pain and is followed in the pain clinic with Dr. Sosa. Her neurological examination at this time is nonfocal. Would recommend a complete stroke evaluation for the patient. She should be maintained on Plavix aspirin for secondary stroke prevention. We will await further recommendations from the chainstitch elastic attacher for her chest pain symptoms. She was seen by cardiology today for recurrent chest pain symptoms. We will await further recommendations. Patient underwent carotid Doppler and echocardiogram studies both of which are normal for age. She has been up and ambulating with the help of physical therapy today. Her right-sided weakness has resolved. Her clinical history suggests possible TIA. She is to continue on dual platelet therapy. We reviewed all the test results today with the patient in detail. She may be considered for discharge home tomorrow with follow-up in the outpatient neurology clinic. Would recommend PT/ OT evaluation possible subacute rehab for the patient. Her overall prognosis at this time remains very guarded.
[2016-09-01] MEDS ORDERED: ALBUTEROL NEBULIZED 2.5 MG/3 ML INHALATION PRN (21:41)
[2016-09-02] MEDS: PANTOPRAZOLE 40 MG TABLET PO SCH (06:22)
[2016-09-02] MEDS: HYDROcodone/APAP 7.5-325MG 1 EACH TAB PO PRN ×3 (06:22→22:10)
--- NOTE | 2016-09-02 06:50 | EEG ---
DATE OF SERVICE: 09/01/2016 INDICATIONS FOR EXAMINATION: This patient is a 40-year-old female being evaluated for TIA. AGE: 40Y EEG FINDINGS: A routine 21-channel, awake digital EEG recording was accomplished utilizing the 10 to 20 international system with bipolar and referential montages. The background activity in the most alert resting state consists of a low to medium amplitude, fairly well-developed and well-sustained 7 to 8 Hz activity over the posterior head regions. This posterior rhythm attenuates to eye opening. There is a small amount of low amplitude 18 to 20 Hz beta activity seen maximally over the anterior head regions. Muscle and movement artifact was observed on a few occasions during the tracing. Hyperventilation was not performed. Photic stimulation at flash frequencies of 2 to 30 Hz produced a good symmetrical occipital driving response. No epileptiform discharges were seen. IMPRESSION: This EEG is normal for the patient's age. The EEG failed to reveal any focal, lateralized or epileptiform abnormalities. Clinical correlation is recommended.
[2016-09-02 07:02] LABS: Cholesterol 155 mg/dL (<200); HDL Cholesterol 44 mg/dL (40-60); Triglycerides 110 mg/dL (<150)
[2016-09-02] MEDS: CLOPIDOGREL 75 MG TAB PO SCH (08:26)
[2016-09-02] MEDS: GABAPENTIN 400 MG CAP PO SCH ×4 (08:26→21:00)
[2016-09-02] MEDS: ASPIRIN 325 MG TAB PO SCH (08:26)
[2016-09-02] MEDS: CYCLOBENZAPRINE 10 MG TAB PO SCH ×3 (08:26→21:00)
[2016-09-02] MEDS: amLODIPine 5 MG TAB PO SCH (08:26)
[2016-09-02] MEDS: ATORVASTATIN 80 MG TAB PO SCH (08:26)
[2016-09-02] MEDS: SODIUM CHLORIDE 0.9% 1,000 ML IV SCH (08:27)
[2016-09-02] MEDS: LISINOPRIL 20 MG TAB PO SCH (08:27)
[2016-09-02] MEDS: ALBUTEROL NEBULIZED 2.5 MG/3 ML INHALATION PRN (08:46)
[2016-09-02] MEDS ORDERED: AMINOPHYLLINE 500 MG/20 ML VIAL IV PRN (12:18)
[2016-09-02] MEDS ORDERED: REGADENOSON 0.4 MG/5 ML SYRINGE IV ONE (12:18)
--- NOTE | 2016-09-02 12:18 | P.PN ---
Subjective Principal diagnosis: Chest discomfort This is a pleasant 40-year-old female patient who sees Dr. Dr. Barajas as an outpatient with a past medical history significant for CAD and prior stenting of the left circumflex, hypertension, dyslipidemia, and significant history of smoking, presented to the hospital complaining of chest discomfort and right leg weakness. The patient has been experiencing intermittent episodes of chest discomfort, started about 6 months ago, where she described a pressure across the chest without any radiation to the arm or neck or shoulder and without any associated symptoms. She stated that the discomfort is not exertional. But she stated at the same time that it was resolved by nitroglycerin lately. Beside that yesterday she experienced an episode of right leg weakness which was resolved on its own. The EKG showed sinus rhythm with diffuse nonspecific changes. The cardiac enzymes came in to be unremarkable. The patient was seen and evaluated by the neurology service and she has been having a stroke workup. She underwent a heart catheterization in October 2014 and that showed patent stent in the left circumflex and there was a plaque in the proximal left anterior descending artery. I'll follow-up with the patient today, she denies having any chest pain or chest discomfort. She has been up and around. The heart rate has been in the 90s to 100. I am going to start the patient on metoprolol by mouth. I would consider obtaining stress test tomorrow. Objective - Vital Signs Vital signs: Vital Signs Temp 97.4 F L 09/02/16 08:00 Pulse 92 09/02/16 09:00 Resp 18 09/02/16 08:00 BP 136/89 09/02/16 08:00 Pulse Ox 94 L 09/02/16 08:00 Intake & Output 09/01/16 09/02/16 09/02/16 18:59 06:59 18:59 Intake Total 200 240 Output Total 450 625 Balance -450 -425 240 Intake: Oral 200 240 Output: Urine 450 625 Other: # Voids 1 1 - Constitutional General appearance: Present: no acute distress - Respiratory Respiratory: bilateral: CTA - Cardiovascular Rhythm: regular Heart sounds: normal: S1, S2 - Labs CBC & Chem 7: 09/01/16 05:49 09/01/16 05:49 Assessment and Plan Plan: Assessment #1 chest discomfort which has improved #2 right leg weakness which has improved as well #3 known CAD with prior stenting #4 sinus tachycardia #5 ongoing smoking. Plan #1 start the patient on metoprolol in addition to the current medical regimen #2 schedule the patient to undergo Lexiscan Cardiolite tomorrow.
--- NOTE | 2016-09-02 19:50 | P.PN ---
Subjective This patient is a 40-year-old female being evaluated for recent episode of TIA. The patient was seen in neurology consultation yesterday for right-sided weakness specifically involving the right leg. She does have a history of lumbar radiculopathy in the past however review of her most recent MRI of the lumbar spine failed to reveal any significant changes. Her right leg weakness today is much improved. She has been working with physical therapy and has been up and ambulating without much difficulties. She underwent a carotid Doppler ultrasound which came back negative for any carotid artery stenosis. Echocardiogram of the heart reveals her ejection fraction to be 60-65%. Cardiology was consult today for evaluation of chest discomfort. She has been complaining of recurrent atypical chest pain and we will await further recommendations from cardiology. Patient did undergo cardiac catheterization in October 2014 with stent placement to the left circumflex. Due to her chest pain symptoms she is to undergo Lexiscan Cardiolite testing tomorrow. We will await those test results from cardiology. Patient is to continue on aspirin daily for secondary stroke prevention. She did undergo EEG today which was reviewed and is normal for age. We reviewed all the test results today with the patient in detail. We will continue close follow-up for this patient during this admission. Objective - Vital Signs Vital signs: Vital Signs Temp 97.8 F 09/02/16 16:00 Pulse 98 09/02/16 16:00 Resp 18 09/02/16 16:00 BP 132/93 09/02/16 16:00 Pulse Ox 97 09/02/16 16:00 Intake & Output 09/02/16 09/02/16 09/03/16 06:59 18:59 06:59 Intake Total 200 720 Output Total 625 Balance -425 720 Intake: Oral 200 720 Output: Urine 625 Other: # Voids 1 # Bowel Movements 0 - Exam Physical examination: PHYSICAL EXAMINATION: Patient is resting comfortably in bed. VITAL SIGNS: Blood pressure is [104/80]. Heart rate is [89]. Respiration is [18] . Temperature is [97.7]. HEENT: Head is atraumatic, neck is supple, there were no carotid bruits. CHEST: Lungs are clear to auscultation and percussion. CARDIAC: S1, S2 normal rate and rhythm. There is no murmur. ABDOMEN: Soft and nontender. Bowel sounds are present. EXTREMITIES: There is no pedal edema. Peripheral pulses are present. Neurological examination: Patient has a nonfocal neurological exam. - Labs CBC & Chem 7: 09/01/16 05:49 09/01/16 05:49 Assessment and Plan (1) TIA (transient ischemic attack) Status: Acute Code(s): G45.9 - TRANSIENT CEREBRAL ISCHEMIC ATTACK, UNSPECIFIED (2) Vision loss, bilateral Status: Acute Code(s): H54.3 - UNQUALIFIED VISUAL LOSS, BOTH EYES (3) Coronary artery disease Status: Acute Code(s): I25.10 - ATHSCL HEART DISEASE OF [place] CORONARY ARTERY W/O ANG PCTRS (4) Hyperlipidemia Status: Acute Code(s): E78.5 - HYPERLIPIDEMIA, UNSPECIFIED Plan: This patient is a 40-year-old female admitted with episode of right-sided leg weakness and numbness. She also experienced episode of bilateral vision loss. Symptoms resolved very quickly early this morning. She was brought into the emergency room and underwent a computed tomography scan of the brain. CAT scan of the brain failed to reveal any evidence of acute stroke or hemorrhage. There was concern for possibility of lumbar radiculopathy. She underwent MRI of the lumbar spine back on 06/25/2016 which was reviewed and is negative for any significant disc herniation or compressive neuropathy. Patient symptoms of vision have completely resolved. She still complains of some numbness in the right leg. She does have history of chronic low back pain and is followed in the pain clinic with Dr. Sosa. Her neurological examination at this time is nonfocal. Would recommend a complete stroke evaluation for the patient. She should be maintained on Plavix aspirin for secondary stroke prevention. 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 She was seen by cardiology today for recurrent chest pain symptoms. We will await further recommendations. Patient underwent carotid Doppler and echocardiogram studies both of which are normal for age. She has been up and ambulating with the help of physical therapy today. Her right-sided weakness has resolved. Her clinical history suggests possible TIA. She is to continue on dual platelet therapy. We reviewed all the test results today with the patient in detail. She may be considered for discharge home tomorrow with follow-up in the outpatient neurology clinic. Patient will be undergoing a Cardiolite stress test tomorrow as recommended by cardiology. We'll await those results. If she is discharged home tomorrow she may follow-up in outpatient neurology clinic for further recommendations. Her overall prognosis at this time remains very guarded.
[2016-09-02] MEDS: METOPROLOL TARTRATE 12.5 MG TAB PO SCH (20:58)
--- NOTE | 2016-09-02 23:02 | PN ---
Patient is a 40-year-old female who came in with right lower limb weakness and patient was admitted for TIA, although workup was negative. Patient's diagnosis is TIA and patient is on dual antiplatelet therapy already and is on a statin. Patient had chest pain which was typical in nature. Patient has coronary artery disease, scheduled ( ) stress test tomorrow. REVIEW OF SYSTEMS: CARDIOVASCULAR: No chest pain, no orthopnea, no PND, no palpitations. PULMONARY: Denied any shortness of breath. No cough or hemoptysis. GASTROINTESTINAL: No diarrhea, nausea or vomiting. No abdominal pain. Normoactive bowel sounds. NEUROLOGIC: No headaches, no weakness, no numbness. Medications were reviewed. PHYSICAL EXAMINATION: VITAL SIGNS: Temperature 97.1, pulse of 92, respiratory rate of 18. Blood pressure is 133/84. Saturating at 99% on room air. GENERAL: The patient is alert and oriented x3, not in any acute distress. Well developed, well nourished. HEENT: Pupils are round and equally reacting to light. EOMI. No scleral icterus. No conjunctival pallor. Normocephalic, atraumatic. No pharyngeal erythema. No thyromegaly. CARDIOVASCULAR: S1 and S2 present. No murmurs, rubs, or gallops. PULMONARY: Chest is clear to auscultation, no wheezing or crackles. ABDOMEN: Soft, nontender, nondistended, normoactive bowel sounds. No palpable organomegaly. MUSCULOSKELETAL: No joint swelling or deformity. EXTREMITIES: No cyanosis, clubbing, or pedal edema. NEUROLOGICAL: Gross neurological examination did not reveal any focal deficits. SKIN: No rashes. LABORATORY DATA: None available from today. FINAL DIAGNOSES: 1. Numbness in the right leg, evaluated for transient ischemic attack. Patient has a possibility of TIA. 2. Chest pain with typical features; going for a stress test tomorrow. 3. Obesity. 4. Hypertension. 5. Hyperlipidemia. For above-mentioned problems, I will go ahead and continue the present medications. Patient will go for a stress test. If stress test is negative, patient probably can be discharged at that time.
[2016-09-03] MEDS ORDERED: AMINOPHYLLINE 500 MG/20 ML VIAL IV PRN (07:00)
[2016-09-03] MEDS ORDERED: REGADENOSON 0.4 MG/5 ML SYRINGE IV ONE (07:00)
[2016-09-03] MEDS: ATORVASTATIN 80 MG TAB PO SCH (07:17)
[2016-09-03] MEDS: amLODIPine 5 MG TAB PO SCH (07:17)
[2016-09-03] MEDS: PANTOPRAZOLE 40 MG TABLET PO SCH (07:17)
[2016-09-03] MEDS: ASPIRIN 325 MG TAB PO SCH (07:17)
[2016-09-03] MEDS: CYCLOBENZAPRINE 10 MG TAB PO SCH (07:18)
[2016-09-03] MEDS: LISINOPRIL 20 MG TAB PO SCH (07:18)
[2016-09-03] MEDS: GABAPENTIN 400 MG CAP PO SCH ×2 (07:18→11:21)
[2016-09-03] MEDS: CLOPIDOGREL 75 MG TAB PO SCH (07:18)
[2016-09-03] MEDS: ALBUTEROL NEBULIZED 2.5 MG/3 ML INHALATION PRN ×2 (08:51→11:55)
[2016-09-03] MEDS ORDERED: NITROGLYCERIN SL TABS 0.4 MG TAB SUBLINGUAL ONE (10:05)
[2016-09-03] MEDS ORDERED: AMINOPHYLLINE 250 MG/10 ML VIAL IV ONE (10:05)
--- NOTE | 2016-09-03 11:02 | NM ---
EXAMINATION TYPE: NM stress lexiscan cardiolite DATE OF EXAM: 09/03/2016 10:53 AM COMPARISON: NONE HISTORY: Chest pain TECHNIQUE: After the intravenous administration of 10 mCi Tc 99m Sestamibi - Cardiolite resting SPEC T images acquired 55 minutes post injection. The patient received 0.4mg Lexiscan, 26.2 mCi Tc 99m Sestamibi - Stress images obtained [address] injection FINDINGS: Review of stress and rest SPECT images demonstrates no distinct perfusion abnormality. Gated analysi s shows normal wall motion with an estimated left ventricular ejection fraction of 64% %. No fixed or reversible perfusion defects are evident. Gated wall motion appears within normal limits. IMPRESSION: 1. Normal stress myocardial study
[2016-09-03] MEDS: SODIUM CHLORIDE 0.9% 1,000 ML IV SCH (11:15)
[2016-09-03] MEDS: HYDROcodone/APAP 7.5-325MG 1 EACH TAB PO PRN (11:20)
[2016-09-03] MEDS: METOPROLOL TARTRATE 12.5 MG TAB PO SCH (11:20)
--- NOTE | 2016-09-03 11:39 | P.PN ---
Subjective Principal diagnosis: TIA This is a pleasant 40-year-old female patient who sees Dr. Dr. Barajas as an outpatient with a past medical history significant for CAD and prior stenting of the left circumflex, hypertension, dyslipidemia, and significant history of smoking, presented to the hospital complaining of chest discomfort and right leg weakness.The EKG showed sinus rhythm with diffuse nonspecific changes. The cardiac enzymes came in to be unremarkable. The patient was seen and evaluated by the neurology, EEG normal. CT of the brain did not reveal any acute intracranial hemorrhage mass effect or midline shift. Carotid Doppler study did not reveal any significant obstructive carotid stenosis. Patient underwent a Lexiscan stress test today which was negative for any reversible ischemia. From cardiology's perspective she may be able to be discharged home today to follow-up with Dr. Barajas in the office post discharge. Objective - Vital Signs Vital signs: Vital Signs Temp 98.3 F 09/03/16 08:00 Pulse 92 09/03/16 09:00 Resp 18 09/03/16 08:00 BP 122/80 09/03/16 08:00 Pulse Ox 96 09/03/16 08:00 Intake & Output 09/02/16 09/03/16 09/03/16 18:59 06:59 18:59 Intake Total 720 960 Balance 720 960 Weight 139.6 kg Intake: Oral 720 960 Other: Voiding Method Toilet Toilet # Voids 1 1 # Bowel Movements 0 - Exam PHYSICAL EXAMINATION: HEENT: Head is atraumatic, normocephalic. Pupils equal, round. Neck is supple. There is no elevated jugular venous pressure. HEART EXAMINATION: Heart S1, S2 normal. No murmur or gallop heard. CHEST EXAMINATION: Lungs are clear to auscultation and precussion. No chest wall tenderness is noted on palpation or with deep breathing. ABDOMEN: Soft, nontender. Bowel sounds are heard. No organomegaly noted. EXTREMITIES: 2+ peripheral pulses with no evidence of peripheral edema and no calf tenderness noted. NEUROLOGIC patient is awake, alert and oriented -3. . - Labs CBC & Chem 7: 09/01/16 05:49 09/01/16 05:49 Assessment and Plan (1) Coronary artery disease Status: Acute (2) Hyperlipidemia Status: Acute (3) TIA (transient ischemic attack) Status: Acute Plan: Lexiscan stress test was performed today which was negative for any reversible ischemia, from cardiology's perspective patient may be able to be discharged home today. Follow-up appointment will be made with Dr. Barajas in the office post discharge. DNP note has been reviewed, I agree with a documented findings and plan of care. Patient was seen and examined.
[2016-09-03 11:53] VITALS: BP 132/68; TEMP 97.3
[2016-09-03 11:59] VITALS: PULSE 90
--- NOTE | 2016-09-03 13:04 | EST ---
DATE OF SERVICE: 09/03/2016 AGE: 40Y SEX: F HT: 61" WT: 310 lbs. Protocol Jed: Other: Lexiscan Cardiolite Stage: Dur. of Exercise: *Heart Rate Blood Pressure *Rest: 89 Rest: 199/79 * *Max. Achieved: 127 Maximum BP: 247/121 85% PMHR: 152 100% PMHR: 179 *METS: INDICATIONS: Chest pain, transient ischemic attack. MEDICATIONS: Baseline EKG revealed a sinus mechanism without significant ST-T changes. Patient was slightly hypertensive to begin with. With Lexiscan administration, she had nondescript symptoms of tingling and uncomfortable feeling in the chest. Heart rate changed from 89 to 127 beats and blood pressure went up to go 240/80 and then came back to 138/60. EKG remained unremarkable. By EKG criteria, this is an unremarkable Lexiscan stress test. Patient was hypertensive during the test, but the pressure came back to normal after a sublingual nitro. The nuclear scan results, which are more pertinent, will be reported by the radiologist.
--- NOTE | 2016-09-03 22:22 | DS ---
DATE OF ADMISSION: 08/31/2016 DATE OF DISCHARGE: 09/03/2016 Patient is a 40-year-old female admitted with right lower limb weakness which resolved at this point of time, and the patient was evaluated for TIA. All the work-up is negative including carotid Doppler and CT of the head and patient underwent ( ) the patient was complaining of chest pain with some typical features, because of which patient underwent stress test, which was negative. Patient is being discharged today in stable medical condition to home. Patient is already on dual antiplatelet therapy and statins for her coronary artery disease and no changes in medications are being made and patient will discharged today in stable medical condition to home. The patient was seen and examined on the day of discharge. Vital signs stable. PHYSICAL EXAMINATION: GENERAL: The patient is alert and oriented x3, not in any acute distress. Well developed, well nourished. HEENT: Pupils are round and equally reacting to light. EOMI. No scleral icterus. No conjunctival pallor. Normocephalic, atraumatic. No pharyngeal erythema. No thyromegaly. CARDIOVASCULAR: S1 and S2 present. No murmurs, rubs, or gallops. PULMONARY: Chest is clear to auscultation, no wheezing or crackles. ABDOMEN: Soft, nontender, nondistended, normoactive bowel sounds. No palpable organomegaly. MUSCULOSKELETAL: No joint swelling or deformity. EXTREMITIES: No cyanosis, clubbing, or pedal edema. NEUROLOGICAL: Gross neurological examination did not reveal any focal deficits. SKIN: No rashes. FINAL DIAGNOSIS(ES): 1. Numbness of the right leg not sure whether patient actually has a transient ischemic attack. 2. Chest pain with some typical features, stress test is negative. Patient is mostly anxious I believe. 3. Obesity. 4. Hypertension. 5. Hyperlipidemia. PLAN: As mentioned above. DISCHARGE MEDICATIONS: Please refer to my depart summary. DISCHARGE DIET: Cardiac. Activity as tolerated. Spent greater than 35 minutes in total discharge process. Patient will follow with Dr. Gant in about 3 to 7 days; Dr. Rodrigo Barajas in 2 weeks. Activity as tolerated.
== END 2016-09-03 14:49 | disposition home or self-care (01) | DRG 69 ==
LOC: EC 06:26 → 6SEL 10:30
PROVIDERS: ADMIT Internal Medicine; ATTEND Internal Medicine
DX: G45.9 Transient cerebral ischemic attack, unspecified (principal); I11.0 Hypertensive heart disease with heart failure; I50.9 Heart failure, unspecified; Z68.43 Body mass index [BMI] 50.0-59.9, adult; E66.9 Obesity, unspecified; R07.9 Chest pain, unspecified; E78.5 Hyperlipidemia, unspecified; G89.4 Chronic pain syndrome; I25.119 Atherosclerotic heart disease of native coronary artery with unspecified angina pectoris; F17.210 Nicotine dependence, cigarettes, uncomplicated; I25.2 Old myocardial infarction; M54.16 Radiculopathy, lumbar region; H54.3 Unqualified visual loss, both eyes; E78.00 Pure hypercholesterolemia, unspecified; Z90.49 Acquired absence of other specified parts of digestive tract; Z95.5 Presence of coronary angioplasty implant and graft; Z86.59 Personal history of other mental and behavioral disorders; Z86.73 Personal history of transient ischemic attack (TIA), and cerebral infarction without residual deficits; Z79.02 Long term (current) use of antithrombotics/antiplatelets; Z79.82 Long term (current) use of aspirin; Z79.899 Other long term (current) drug therapy
CPT/HCPCS: 36415; 70450; 71020; 78452; 80048; 80053; 80061; 82550; 82553; 84484; 85025; 85027; 85610; 85730; 93005; 93017; 93306; 93880; 94640; 94760; 95819; 96361; 96374; 99285

== ENCOUNTER → 2016-10-10 | Outpatient (CLI) | payer OTHER ==
--- NOTE | 2016-10-10 09:46 | MR ---
EXAMINATION TYPE: MR brain wo con DATE OF EXAM: 10/10/2016 9:36 AM COMPARISON: NONE HISTORY: TIA T1-weighted sagittal, T2, FLAIR, and diffusion axial, and T2 coronal coronal views of the brain are s ubmitted. There is no evidence of acute ischemia. The ventricles, basal cisterns, and sulci overlying the conv exities are consistent with the patient's age. There is no mass effect. Craniocervical junction maintained. Sella turcica has a normal appearance. Changes of mild chronic si nusitis noted. Vascular signal voids are maintained. WHITE MATTER: There are 4 tiny areas of abnormal signal scattered throughout the white matter bilaterally. All mary ann ure less than 5 mm. No callosal lesions. No lesions perpendicular to the ventricular system. IMPRESSION: 1. No acute intracranial process. 2. Minimal nonspecific white matter changes seen with migraine headaches, hypertension, although demy elinating process or tiny areas of remote ischemia not entirely excluded.
== END | disposition home or self-care (01) ==
LOC: RADMRIMAIN 08:54
PROVIDERS: ATTEND Psychiatry & Neurology Neurology
DX: G43.909 Migraine, unspecified, not intractable, without status migrainosus (principal); I10 Essential (primary) hypertension; R90.82 White matter disease, unspecified; Z86.73 Personal history of transient ischemic attack (TIA), and cerebral infarction without residual deficits
CPT/HCPCS: 70551

== ENCOUNTER 2016-12-02 22:38 | Emergency (ER) | payer OTHER ==
[2016-12-02 23:17] VITALS: RESP 20; TEMP 98
--- NOTE | 2016-12-02 23:39 | ED ---
General Adult HPI - General Chief complaint: Extremity Injury, Lower Stated complaint: R Leg Pain Time Seen by Provider: 12/02/16 23:24 Source: patient Mode of arrival: wheelchair Limitations: no limitations - History of Present Illness Initial comments: 40-year-old female patient presents to emergency department today for complaints of right leg pain. Patient states the pain starts in her right groin radiates down to her knee. Patient states she also has pain in the knee when she flexes it. Patient denies any injury or inciting event. Patient states pain worsens with weightbearing and ambulation. Patient does have a history of lower back pain, but states that it has not worsened or changed in any way. Patient denies any loss of bowel or bladder control. She denies any saddle anesthesia, or numbness and tingling in the leg. Patient states she does have lower extremity swelling bilaterally, for which her addition put her on a water pill. She states that the swelling does seem to be worse on the right side. Patient denies any rash, erythema, tenderness, fever, or chills. - Related Data Home Medications Medication Instructions Recorded Confirmed Atorvastatin [Lipitor] 80 mg PO DAILY 07/14/14 12/02/16 Clopidogrel Bisulfate [Plavix] 75 mg PO DAILY 07/14/14 12/02/16 Aspirin 81 mg PO DAILY 11/14/14 12/02/16 Lisinopril [Prinivil] 20 mg PO BID 12/17/15 12/02/16 Albuterol Inhaler [Ventolin Hfa 1 - 2 puff INHALATION RT-Q6H PRN 08/31/16 Inhaler] Cyclobenzaprine [Flexeril] 10 mg PO Q6H PRN 08/31/16 12/02/16 Gabapentin 800 mg PO QID 08/31/16 12/02/16 HYDROcodone/APAP 7.5-325MG [[place] 1 tab PO TID PRN 08/31/16 12/02/16 7.5-325] Albuterol Nebulized [Ventolin 2.5 mg INHALATION RT-BID 12/02/16 12/02/16 Nebulized] LORazepam [Ativan] 0.5 mg PO DAILY 12/02/16 12/02/16 Levofloxacin [Levaquin] 750 mg PO DAILY 12/02/16 12/02/16 amLODIPine [Norvasc] 10 mg PO DAILY 12/02/16 12/02/16 Previous Rx's Medication Instructions Recorded Nitroglycerin Sl Tabs [Nitrostat] 0.4 mg SUBLINGUAL Q5M PRN #0 tab 11/16/14 Allergies Allergy/AdvReac Type Severity Reaction Status Date / Time No Known Allergies Allergy Verified 12/02/16 23:26 Review of Systems ROS Statement: Those systems with pertinent positive or pertinent negative responses have been documented in the HPI. ROS Other: All systems not noted in ROS Statement are negative. Past Medical History Past Medical History: Coronary Artery Disease (CAD), Chest Pain / Angina, Heart Failure, Hyperlipidemia, Hypertension, Myocardial Infarction ([place]), Pneumonia Additional Past Medical History / Comment(s): back pain Last Myocardial Infarction Date:: 08-18-2011 History of Any Multi-Drug Resistant Organisms: None Reported Past Surgical History: Section, Cholecystectomy, Heart Catheterization With Stent Additional Past Surgical History / Comment(s): left leg sx Past Anesthesia/Blood Transfusion Reactions: Previous Problems w/ Anesthesia Additional Past Anesthesia/Blood Transfusion Reaction / Comment(s): HARD TIME WAKING UP AFTER ANESTHESIA. Date of Last Stent Placement:: 08-18-2011 Past Psychological History: Anxiety, Depression Smoking Status: Current every day smoker Past Alcohol Use History: None Reported Past Drug Use History: None Reported - Past Family History Mother History Unknown: Yes Father History Unknown: Yes General Exam Limitations: no limitations General appearance: alert, in no apparent distress Eye exam: Present: normal appearance, PERRL, EOMI. Absent: scleral icterus, conjunctival injection, periorbital swelling ENT exam: Present: normal exam, mucous membranes moist Neck exam: Present: normal inspection. Absent: tenderness, meningismus, lymphadenopathy Respiratory exam: Present: normal lung sounds bilaterally. Absent: respiratory distress, wheezes, rales, rhonchi, stridor Cardiovascular Exam: Present: regular rate, normal rhythm, normal heart sounds. Absent: systolic murmur, diastolic murmur, rubs, gallop, clicks GI/Abdominal exam: Present: soft, normal bowel sounds, other (obese). Absent: distended, tenderness, guarding, rebound, rigid Extremities exam: Present: normal inspection, other (Pain is flexion of the knee , full passive range of motion. Pain with flexion of the hip, full passive range of motion. ). Absent: tenderness, pedal edema, calf tenderness Back exam: Present: normal inspection. Absent: tenderness, CVA tenderness (R), CVA tenderness (L) Neurological exam: Present: alert, oriented X3, CN II-XII intact Psychiatric exam: Present: normal affect, normal mood Skin exam: Present: warm, dry, intact, normal color. Absent: rash Course Vital Signs 12/02/16 23:14 Temperature 98 F Pulse Rate 69 Respiratory 20 Rate Blood Pressure 98/54 O2 Sat by Pulse 97 Oximetry Medical Decision Making - Medical Decision Making 39-year-old female patient presents with complaints of right groin pain that radiates down to her knee with some increased right leg swelling. Ultrasound of the Right Lower Extremity was normal and did not reveal any deep venous thrombosis. Patient denies any injury or known inciting event, and current symptoms are felt consistent with groin strain. Patient instructed to apply heat to the area for comfort. Patient does have [place] and Flexeril at home which she has been instructed to use as directed. Patient will be given orthopedic follow-up if symptoms persist. Patient instructed to follow up with her primary care physician in one to 2 days for recheck. Patient instructed to return for any new, worsening, or concerning symptoms. Patient verbalizes understanding and agrees with this plan. Disposition Clinical Impression: Groin strain Disposition: HOME SELF-CARE Condition: Stable Instructions: Groin Strain (ED) Additional Instructions: Heat to the area. Take home pain medications as directed. Follow-up with orthopedics if symptoms don't start to improve over the next couple of days. Follow-up with primary care physician in one to 2 days for recheck. Return for any new, worsening, or concerning symptoms. Referrals: Bela Gant MD [Primary Care Provider] - 1-2 days Saroj Deluca DO [Doctor of Osteopathic Medicine] - 1-2 days Time of Disposition: 00:15
--- NOTE | 2016-12-03 00:27 | US ---
EXAM: US Duplex Right Lower Extremity Veins. CLINICAL HISTORY: Reason: Pain in right leg. Patient currently taking blood thinners. TECHNIQUE: Real-time ultrasound scan of the veins of the right lower extremity with color Doppler flow, spectral waveform analysis and compression. COMPARISON: None FINDINGS: Normal compressibility is demonstrated from the common femoral vein to the proximal right calf veins. There is normal response to Valsalva and augmentation. Normal spontaneous phasic flow is noted. IMPRESSION: No evidence of deep venous thrombosis in the right lower extremity.
[2016-12-03 00:28] VITALS: BP 111/56; PULSE 100
== END 2016-12-03 00:28 | disposition home or self-care (01) ==
LOC: EC 22:38
DX: S39.011A Strain of muscle, fascia and tendon of abdomen, initial encounter (principal); M54.5 Low back pain; M25.561 Pain in right knee; M79.89 Other specified soft tissue disorders; F17.200 Nicotine dependence, unspecified, uncomplicated; E78.5 Hyperlipidemia, unspecified; I10 Essential (primary) hypertension; F41.9 Anxiety disorder, unspecified; I25.10 Atherosclerotic heart disease of native coronary artery without angina pectoris; I50.9 Heart failure, unspecified; I25.2 Old myocardial infarction; Z79.02 Long term (current) use of antithrombotics/antiplatelets; Z79.82 Long term (current) use of aspirin; Z79.899 Other long term (current) drug therapy; Z87.01 Personal history of pneumonia (recurrent); Z86.79 Personal history of other diseases of the circulatory system; Z98.890 Other specified postprocedural states; X58.XXXA Exposure to other specified factors, initial encounter
CPT/HCPCS: 99283

== ENCOUNTER → 2017-03-23 | Outpatient (CLI) | payer OTHER ==
--- NOTE | 2017-03-23 14:14 | XR ---
EXAMINATION TYPE: XR chest 2V DATE OF EXAM: 03/23/2017 COMPARISON: NONE HISTORY: Shortness of breath. History of COPD. TECHNIQUE: Frontal and lateral views of the chest are obtained. FINDINGS: There is no focal air space opacity, pleural effusion, or pneumothorax seen. Copious soft tissues silhouette the lower lobes. The cardiac silhouette size is within normal limits. The osseo us structures are intact. IMPRESSION: No acute cardiopulmonary process, unchanged from the prior.
== END | disposition home or self-care (01) ==
LOC: RADXRMAIN 13:44
PROVIDERS: ATTEND Internal Medicine
DX: R06.02 Shortness of breath (principal); R05 Cough
CPT/HCPCS: 71020

== ENCOUNTER → 2017-09-03 | Outpatient (CLI) | payer OTHER ==
[2017-08-27 16:44] VITALS: BMI 55.7
[2017-09-03 13:31] VITALS: BP 107/68; PULSE 76; RESP 16
--- NOTE | 2017-09-03 14:04 | P.CONS ---
History of Present Illness - Reason for Consult Consult date: 09/03/17 - History of Present Illness This is 41 years old female with a chronic history of severe low back pain started years ago she denies any initiating event she reported that the pain intensity increased over time, and currently ,the pain is localized in the low back area ,with radiation towards both hips and both lower extremities, the intensity of the pain is 6-8/10 and increases with any activity and also associated with burning and numbness sensation, she tried injection done by a neurologist Dr. Ennis she had no benefit, and she tried chiropractics without any benefit and she is currently in the process to start physical therapy which was ordered by her orthopedic surgeon Dr. Otero, she denies any change in the bowel movements or urination she denies any fever or night sweats, she is currently on [place] 10/325 every 6 hours and Neurontin 800 mg every 6 hours and Flexeril 10 mg every 6 hours she denies any side effect of the medication and she reports a current pain medication helping her to control her pain Past Medical History Past Medical History: Coronary Artery Disease (CAD), Chest Pain / Angina, Heart Failure, Hyperlipidemia, Hypertension, Myocardial Infarction (MA), Pneumonia Additional Past Medical History / Comment(s): back pain Last Myocardial Infarction Date:: 08-18-2011 History of Any Multi-Drug Resistant Organisms: None Reported Past Surgical History: Section, Cholecystectomy, Heart Catheterization With Stent Additional Past Surgical History / Comment(s): left leg sx,heart stents x1 Past Anesthesia/Blood Transfusion Reactions: Previous Problems w/ Anesthesia Additional Past Anesthesia/Blood Transfusion Reaction / Comm: HARD TIME WAKING UP AFTER ANESTHESIA. Date of Last Stent Placement:: 08-18-2011 Past Psychological History: Anxiety, Depression Smoking Status: Current every day smoker Past Alcohol Use History: None Reported Additional Past Alcohol Use History / Comment(s): started smoking at age 20,1/ 2ppd Past Drug Use History: None Reported - Past Family History Mother History Unknown: Yes Father History Unknown: Yes Brother(s) Family Medical History: Deep Vein Thrombosis (DVT) Medications and Allergies Home Medications Medication Instructions Recorded Confirmed Type Atorvastatin [Lipitor] 80 mg PO DAILY 07/14/14 09/03/17 History Clopidogrel Bisulfate [Plavix] 75 mg PO DAILY 07/14/14 09/03/17 History Aspirin 81 mg PO DAILY 03/24/15 01/11/18 History Nitroglycerin Sl Tabs [Nitrostat] 0.4 mg SUBLINGUAL Q5M PRN #0 tab 11/16/1407/11 Rx Lisinopril [Prinivil] 20 mg PO BID 12/17/15 09/03/17 History Albuterol Inhaler [Ventolin Hfa 1 - 2 puff INHALATION RT-Q6H PRN 08/31/16 History Inhaler] Cyclobenzaprine [Flexeril] 10 mg PO Q6H PRN 08/31/16 09/03/17 History Gabapentin 800 mg PO QID 08/31/16 09/03/17 History Albuterol Nebulized [Ventolin 2.5 mg INHALATION RT-BID 12/02/16 09/03/17 History Nebulized] LORazepam [Ativan] 0.5 mg PO DAILY 12/02/16 09/03/17 History amLODIPine [Norvasc] 5 mg PO DAILY 12/02/16 09/03/17 History HYDROcodone/APAP 10-325MG [[place] 1 tab PO TID PRN 08/27/17 09/03/17 History 10-325] Allergies Allergy/AdvReac Type Severity Reaction Status Date / Time No Known Allergies Allergy Verified 09/03/17 13:09 Physical Exam Vitals: Vital Signs Pulse Resp BP Pulse Ox 09/03/17 13:13 76 16 107/68 97 Social history : smoker , NO ETOH , NO Illegal drugs use Review of Systems : 1- Constitutional : no chills , no fever , no night sweats , 2- Ears : no ear discharge , no change in hearing 3-Nose, Mouth ,Throat ; no bleeding gums, no sore throat , no epistaxis , 4-Cardiovascular : Denies chest pain, , no orthopnea , no palpitation 5-Respiratory : Denies cough , no dyspnea , no hemoptysis 6-Gastrointestinal :, no change in bowel habits , no coffee- ground emesis . 7-Genitourinary : No hematuria , no discharge , no incontinence, 8-Musculoskeletal : gait dysfunction , report low back pain , reports lower extremity numbness and tingling sensation , 9- Neurological : no ataxia , no tremor , no sezure , 10-Psychatric , no suicidal ideation no hallucination 11- Endocrine : no cold intolerence , no polyuria , no polydypsia , 12-Hematologic : no easy bleeding , no easy brusing , 13-Allergic / immunology : no angioedema , no wheezing ,no allergic rhinitis 14-Integumentary : no brttle nails , no change hair / nails , no foot/leg ulcers . Physical Examinations : 1-Constitutional : Cooperative , not in acute distress . 2-HEENT : nech ; supple , no Lymphadenopathy , no Thyromegaly , :eyes , no icterus, no photophobia . ENT : , normal oropharynx , no Thrush 3- Respiratory : Chest clear to auscultations Bilaterally , no wheezing . 4- Cardiovascular : regular rate and rhythem , S1 , S2 , no S3 , no S4. 5- Gastrointestinal: abdomen soft no tenderness , no organomegally . 6- Genitourinary : Defferred . 7-Integumentary : No cellulitis , no ulcers , normal skin turgor , no cyanotic . 8- neurologic : Cranial nerve II to XII intact , no focal neurological deffecit 9-psychatric : alert , oriented X 3 , appropriate affect , intact judgment and insight . 10-Lymphatic : no Lymphadenopathy. 11- musculoskeltal: abnormal gait Lumber spine moter stegnth lower extremities ,thigh and legs 5/5 Right side , 5/5 Left side deep tendon reflexes : normal Knee Jerk , normal ankle Jerk positive lumber facet Loading Test Range of motion of the lumbar spine Flexion 30 degrees, extension 10 degrees strait leg raising test , positive at 30 degree Fabere test positive RT and positive LT . Results Comments: MRI of the lumbar spine done at [facility] 04/18/2017 showed a C4 central disc protrusion L4 5 left-sided disc extrusion and there is facet arthropathy Assessment and Plan Plan: Assessment and plan= lumbar radiculopathy/lumbar spondylosis with facet arthropathy She could benefit from lumbar epidural steroid injections , procedure risk and benefits and alternatives discussed with the patient ,she agreed with proceeding, also patient should continue her current pain medication [place] 10 mg/325 every 6 hours, Neurontin 800 mg every 6 hours and Flexeril 10 mg every 6 hours, she denies any side effect of the medication Patient has to hold her Plavix for one week before the procedure, 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 Time with Patient: Greater than 30
== END | disposition home or self-care (01) ==
LOC: PNWHC3 13:04
PROVIDERS: ATTEND Specialist
DX: G89.29 Other chronic pain (principal); M47.26 Other spondylosis with radiculopathy, lumbar region; M46.86 Other specified inflammatory spondylopathies, lumbar region; I25.10 Atherosclerotic heart disease of native coronary artery without angina pectoris; I50.9 Heart failure, unspecified; E78.5 Hyperlipidemia, unspecified; I10 Essential (primary) hypertension; F32.9 Major depressive disorder, single episode, unspecified; F41.9 Anxiety disorder, unspecified; F17.200 Nicotine dependence, unspecified, uncomplicated; Z79.02 Long term (current) use of antithrombotics/antiplatelets; Z79.899 Other long term (current) drug therapy; Z79.82 Long term (current) use of aspirin
CPT/HCPCS: 99211

== ENCOUNTER 2017-10-01 06:41 | Day surgery (SDC) | payer OTHER ==
[2017-09-23 14:30] VITALS: BMI 54.8
[2017-10-01] MEDS ORDERED: LACTATED RINGERS 1,000 ML IV SCH (07:00)
[2017-10-01] MEDS ORDERED: LIDOCAINE 1% 20 ML VIAL (10MG/ML) FOR IV START INTRADERMA ONE (08:07)
[2017-10-01 08:18] VITALS: TEMP 97.7
--- NOTE | 2017-10-01 09:13 | P.PCN ---
Date of Procedure: 10/01/17 Procedure(s) Performed: PREOPERATIVE DIAGNOSIS: 1- Lumbar radiculopathy 2-Lumbar spondylosis with Facet arthropathy without myelopathy. POSTOPERATIVE DIAGNOSIS: 1-Lumber radiculopathy 2-Lumbar spondylosis with Facet arthropathy without myelopathy. PROCEDURE 1. Lumbar epidural steroid injection under fluoroscopic guidance at the L5-S1 level. 2. Lumbar epidurogram. ANESTHESIA: Local with 1% lidocaine 3 ml and , moderate sedation with intravenous Versed 2 mg ,and fentanyle 100 Mcg EBL: Minimal PROCEDURE INDICATION: The patient with low back pain and radiculitis symptoms unresponsive to conservative treatment. Fluoroscopy was used to optimize visualization of the needle placement and to maximize safety. PROCEDURE DESCRIPTION / TECHNIQUE: The patient was seen and identified in the preoperative area. Risks, benefits , complications including but not limited to infections ,bleeding ,allergic reaction to the medications ,nerve damage and not complete pain releife , and alternatives were discussed with the patient. The patient agreed to proceed with the procedure and signed the consent. IV was started, and vital signs were stable. Patient was taken to the OR and time out was completed. The patient was placed in the prone position on procedure table and a pillow was placed under the abdomen to reduce lumbar lordosis. The lumbosacral area was prepped and draped in the usual sterile fashion.ere closely monitored during the procedure. Conscious sedation was used during the procedure to decrease patients anxiety. Vital signs was monitered during the entire procedure. Using anterior-posterior fluoroscopy, the L5-S1 interlaminar space was identified and the skin over this site was marked and then infiltrated with 1% lidocaine subcutaneously. Subsequently, a 18-gauge 6 inches Tuohy epidural needle was inserted and advanced toward the epidural space using the ``Loss of resistance technique and guided by AP and lateral fluoroscopy. The correct needle position in the epidural space was verified with the injection of 2 mL of the water soluble contrast dye Omnipaque 180 contrast and observing an excellent epidurogram with the epidural spread of the dye, after negative aspiration for blood and CSF and in the absence of paresthesias. Again after negative aspiration, a 6 ml mixture containing 20 mg of Dexamethasone and 2 ml of preservative free Normal Saline, and 2 ml of preservative free lidocaine 1 % solution was injected and a washout of epidurogram was seen. Needle was withdrawn intact, skin was cleansed, and bandages were applied. COMPLICATIONS: None DISPOSITION / PLANS: The patient was placed in a supine position and transferred to the recovery area in a stable condition for observation. There was no evidence of lower extremity motor or sensory deficit after the procedure. Patient was discharged from the recovery room after meeting discharge criteria. Home discharge instructions were given to the patient by the staff. The patient was reexamined prior to discharge. The patient will schedule a follow up in the clinic in 2-4 weeks.
[2017-10-01] MEDS ORDERED: IV FLUID CONTINUATION 700 ML IV ONE (09:24)
[2017-10-01 09:32] VITALS: BP 131/84; PULSE 94; RESP 18
--- NOTE | 2017-10-01 10:44 | FL ---
Fluoroscopy INDICATION: Pain FINDINGS: Fluoroscopy time: 5 seconds. Images obtained: 1. IMPRESSIONS: 1. Documentation of fluoroscopy.
== END 2017-10-01 09:49 | disposition home or self-care (01) ==
LOC: ORPAIN 06:41
PROVIDERS: ATTEND Specialist
DX: M47.26 Other spondylosis with radiculopathy, lumbar region (principal); Z79.02 Long term (current) use of antithrombotics/antiplatelets
CPT/HCPCS: 81025; 84703; 62323; J2250; J1100; Q9965; J3010; G0463; 99152; 99211

== ENCOUNTER 2017-10-26 06:18 | Day surgery (SDC) | payer OTHER ==
[2017-10-22 16:02] VITALS: BMI 56.7
[~2017-10-26 06:18] MED LIST: LACTATED RINGERS 1,000 ML IV SCH
[2017-10-26 07:24] VITALS: RESP 16; TEMP 96.6
[2017-10-26] MEDS ORDERED: LIDOCAINE 1% 20 ML VIAL (10MG/ML) FOR IV START INTRADERMA ONE (07:29)
--- NOTE | 2017-10-26 07:47 | P.PCN ---
Date of Procedure: 10/26/17 Surgeon: Zack Gamez Pathology: none sent Condition: stable Disposition: PACU Description of Procedure: PREOPERATIVE DIAGNOSIS: 1-Lumbar radiculitis. POSTOPERATIVE DIAGNOSIS: 1-Lumbar radiculitis. PROCEDURE 1. Lumbar epidural steroid injection under fluoroscopic guidance at the L5-S1 level. 2. Lumbar epidurogram. ANESTHESIA: Local with 1% lidocaine; IV sedation with Versed/fentanyl. EBL: Minimal PROCEDURE INDICATION: The patient with low back pain and radiculitis symptoms unresponsive to conservative treatment. Fluoroscopy was used to optimize visualization of the needle placement and to maximize safety. Off Plavix for 7 days. PROCEDURE DESCRIPTION / TECHNIQUE: The patient was seen and identified in the preoperative area. Risks, benefits, complications, and alternatives were discussed with the patient, including but not limited to bleeding, infection, nerve damage, allergic reactions to medications, and incomplete pain relief. The patient agreed to proceed with the procedure and signed the consent after all questions were answered. IV was started, and vital signs were stable. Patient was taken to the OR and time out was completed to confirm patient position, procedure, laterality of pain, and allergies. The patient was placed in the prone position on procedure table and a pillow was placed under the abdomen to reduce lumbar lordosis. The lumbosacral area was prepped and draped in the usual sterile fashion. Critical pause was taken. Vital signs were closely monitored during the procedure. Conscious sedation was used during the procedure to decrease patients anxiety. Using anterior-posterior fluoroscopy, the L5-S1 interlaminar space was identified and the skin over this site was marked and then infiltrated with 1% lidocaine subcutaneously. Subsequently, a 20-gauge 6-inch Tuohy epidural needle was inserted and advanced toward the epidural space using the Loss of resistance technique and guided by AP and lateral fluoroscopy. The correct needle position in the epidural space was verified with the injection of 2 mL of the water soluble contrast dye Omnipaque 300 contrast and observing an excellent epidurogram with the epidural spread of the dye, after negative aspiration for blood and CSF and in the absence of paresthesias. Again after negative aspiration, a 6 ml mixture containing 40 mg of Depo Medrol and 3 ml of preservative free Normal Saline, and 2 ml of preservative free lidocaine 1% solution was injected and a washout of epidurogram was seen. Needle was withdrawn intact, skin was cleansed, and bandages were applied. COMPLICATIONS: None COMMENTS: DISPOSITION / PLANS: The patient was placed in a supine position and transferred to the recovery area in a stable condition for observation. There was no evidence of lower extremity motor or sensory deficit after the procedure. Patient was discharged from the recovery room after meeting discharge criteria. Home discharge instructions were given to the patient by the staff. The patient was reexamined prior to discharge and there were no issues. The patient will schedule a follow up in the clinic in 2-4 weeks.
[2017-10-26] MEDS ORDERED: IV FLUID CONTINUATION 1,000 ML IV ONE (07:55)
--- NOTE | 2017-10-26 08:09 | FL ---
EXAMINATION TYPE: FL guided pain mgmt statistic DATE OF EXAM: 10/26/2017 COMPARISON: NONE HISTORY: Back pain TECHNIQUE: Fluoroscopy. FINDINGS/IMPRESSION: Fluoroscopic guidance was provided during procedure performed by Dr. Salter. A total of 15 seconds of fluoroscopic time was utilized during the procedure and 4 spot images was acqu ired demonstrating localization of the lumbar spine.
[2017-10-26 08:21] VITALS: BP 110/68; PULSE 73
== END 2017-10-26 08:29 | disposition home or self-care (01) ==
LOC: ORPAIN 06:18
PROVIDERS: ATTEND Anesthesiology
DX: M54.16 Radiculopathy, lumbar region (principal); Z79.02 Long term (current) use of antithrombotics/antiplatelets; I10 Essential (primary) hypertension; I25.10 Atherosclerotic heart disease of native coronary artery without angina pectoris; I25.2 Old myocardial infarction
CPT/HCPCS: 81025; 62323; J2250; J1030; Q9965; J3010

== ENCOUNTER 2017-11-17 07:47 | Day surgery (SDC) | payer OTHER ==
[2017-11-13 12:56] VITALS: BMI 52.9
[2017-11-17] MEDS ORDERED: LACTATED RINGERS 1,000 ML IV SCH (08:45)
[2017-11-17 08:49] VITALS: RESP 16; TEMP 98.2
[2017-11-17] MEDS ORDERED: LIDOCAINE 1% 20 ML VIAL (10MG/ML) FOR IV START INTRADERMA ONE (08:55)
--- NOTE | 2017-11-17 09:28 | P.PCN ---
Date of Procedure: 11/17/17 Surgeon: Zack Gamez Pathology: none sent Condition: stable Disposition: PACU Description of Procedure: PREOPERATIVE DIAGNOSIS: 1-Lumbar radiculitis. POSTOPERATIVE DIAGNOSIS: 1-Lumbar radiculitis. PROCEDURE 1. Lumbar epidural steroid injection under fluoroscopic guidance at the L5-S1 level. 2. Lumbar epidurogram. ANESTHESIA: Local with 1% lidocaine; IV sedation with Versed/fentanyl. EBL: Minimal PROCEDURE INDICATION: The patient with low back pain and radiculitis symptoms unresponsive to conservative treatment, presents for LESI #3 today after three weeks' relief from previous procedure. Fluoroscopy was used to optimize visualization of the needle placement and to maximize safety. Off Plavix for 7 days. PROCEDURE DESCRIPTION / TECHNIQUE: The patient was seen and identified in the preoperative area. Risks, benefits, complications, and alternatives were discussed with the patient, including but not limited to bleeding, infection, nerve damage, allergic reactions to medications, and incomplete pain relief. The patient agreed to proceed with the procedure and signed the consent after all questions were answered. IV was started, and vital signs were stable. Patient was taken to the OR and time out was completed to confirm patient position, procedure, laterality of pain, and allergies. The patient was placed in the prone position on procedure table and a pillow was placed under the abdomen to reduce lumbar lordosis. The lumbosacral area was prepped and draped in the usual sterile fashion. Critical pause was taken. Vital signs were closely monitored during the procedure. Conscious sedation was used during the procedure to decrease patients anxiety. Using anterior-posterior fluoroscopy, the L5-S1 interlaminar space was identified and the skin over this site was marked and then infiltrated with 1% lidocaine subcutaneously. Subsequently, a 20-gauge 6-inch Tuohy epidural needle was inserted and advanced toward the epidural space using the Loss of resistance technique and guided by AP and lateral fluoroscopy. The correct needle position in the epidural space was verified with the injection of 2 mL of the water soluble contrast dye Omnipaque 300 contrast and observing an excellent epidurogram with the epidural spread of the dye, after negative aspiration for blood and CSF and in the absence of paresthesias. Again after negative aspiration, a 6 ml mixture containing 40 mg of Depo Medrol and 3 ml of preservative free Normal Saline, and 2 ml of preservative free lidocaine 1% solution was injected and a washout of epidurogram was seen. Needle was withdrawn intact, skin was cleansed, and bandages were applied. COMPLICATIONS: None COMMENTS: DISPOSITION / PLANS: The patient was placed in a supine position and transferred to the recovery area in a stable condition for observation. There was no evidence of lower extremity motor or sensory deficit after the procedure. Patient was discharged from the recovery room after meeting discharge criteria. Home discharge instructions were given to the patient by the staff. The patient was reexamined prior to discharge and there were no issues. The patient will schedule a follow up in the clinic in 2-4 weeks.
[2017-11-17] MEDS ORDERED: IV FLUID CONTINUATION 800 ML IV ONE (09:34)
--- NOTE | 2017-11-17 09:38 | FL ---
Fluoroscopy History: LUMBAR lumbar. 14 seconds fluoro
[2017-11-17 09:51] VITALS: BP 118/75
[2017-11-17 10:07] VITALS: PULSE 74
== END 2017-11-17 10:20 | disposition home or self-care (01) ==
LOC: ORPAIN 07:47
PROVIDERS: ATTEND Anesthesiology
DX: M54.16 Radiculopathy, lumbar region (principal); M48.061 Spinal stenosis, lumbar region without neurogenic claudication; F32.9 Major depressive disorder, single episode, unspecified; I10 Essential (primary) hypertension; I25.2 Old myocardial infarction; E66.9 Obesity, unspecified; Z79.02 Long term (current) use of antithrombotics/antiplatelets; Z95.5 Presence of coronary angioplasty implant and graft; Z68.43 Body mass index [BMI] 50.0-59.9, adult
CPT/HCPCS: 81025; 62323; J2250; J1030; J3010; Q9966; 99152

== ENCOUNTER → 2017-12-14 | Outpatient (CLI) | payer MEDICARE, OTHER ==
[2017-12-14 14:42] VITALS: BP 121/66; PULSE 82; RESP 16
--- NOTE | 2017-12-14 15:04 | P.PN ---
Subjective Progress Note Date: 12/14/17 This is follow-up visit for this patient with a history of severe and chronic low back pain secondary to lumbar degenerative disc disease, lumbar facet arthropathy, we have done Lumbar epidural steroid injection 3 , she had some improvement in her low back pain but she continued to have severe low back pain , she is not controlled with the current medication patient currently on [place] 10/325 every 8 hours , Flexeril 10 mg every 6 hours , Neurontin 800 mg every 6 hours , she is getting prescription refills from her primary care doctor EDUARDA Patient denies any side effects of the medication, denies excessive drowsiness or sleepiness, denies suicidal ideation, and reports that the current pain medication is NOT helping To control the pain and improve activity of daily living . Patient denies any motor or sensory deficit, denies change in bowel movement or urination, patient denies any fever or night sweats and patient here for follow-up visit and medication refill Objective - Vital Signs Vital signs: Vital Signs Temp Pulse 82 12/14/17 14:28 Resp 16 12/14/17 14:28 BP 121/66 12/14/17 14:28 Pulse Ox Intake & Output 12/13/17 12/14/17 12/14/17 18:59 06:59 18:59 Weight 133.81 kg - Exam Physical Examinations : 1-Constitutiona : Cooperative , not in acute distress . 2-HEENT : nech ; supple , no Lymphadenopathy , normal thyroid size . eyes : no ptosis , no icterus, no photophobia . ENT : normal of hearing , normal oropharynx , no Thrush . 3- Respiratory : Chest clear to auscultations Bilaterally , no wheezing , no Rhonchi . 4- Cardiovascular : regular rate and rhythem , S1 , S2 , no S3 , no S4. 5- Gastrointestinal : abdomen soft no tenderness , bowel sounds positive all four quadrents , no organomegally . 6- Genitourinary : Defferred . 7- neurologic : Cranial nerve II to XII intact , no focal neurological deffecit . 8-psychatric : alert , oriented X 3 , appropriate affect , intact judgment and insight . 9-Lymphatic : no Lymphadenopathy . 10- musculoskeltal : , Lumber spine = normal moter stegnth lower extremities ,thigh and legs .5/5 deep tendon reflexes : normal Knee Jerk , normal ankle Jerk . lumber facet Loading Test positive strait leg raising test positive at 30 degree Right , positve at 30 degree Left Fabere test positive Right and positive Left Assessment and Plan Plan: Assessment and plan= chronic low back pain secondary to lumbar degenerative disc disease , lumbar spondylosis with lumbar facet arthropathy , Status post lumbar epidural steroid injections 3, she had partial benefit after the lumbar epidural steroid injection she continued to have severe low back pain, And this option at this point is to schedule patient to have diagnostic medial branch block lumbar area L3 4, L4 5, L5-S1 , will do it twice and if she had more than 50% decrease in her low back pain then she would be good candidate for radiofrequency ablation of the medial branch lumbar area, patient also counseled about weight loss, and explained to the patient that with loss good help to improve her low back pain, , Time with Patient: Less than 30
== END | disposition home or self-care (01) ==
LOC: PNWHC3 14:04
PROVIDERS: ATTEND Specialist
DX: G89.29 Other chronic pain (principal); M54.5 Low back pain; M51.36 Other intervertebral disc degeneration, lumbar region; M47.816 Spondylosis without myelopathy or radiculopathy, lumbar region; M46.86 Other specified inflammatory spondylopathies, lumbar region; Z79.891 Long term (current) use of opiate analgesic; Z79.899 Other long term (current) drug therapy
CPT/HCPCS: 99211

== ENCOUNTER 2018-01-13 08:48 | Day surgery (SDC) | payer MEDICARE, OTHER ==
[2018-01-07 12:53] VITALS: BMI 54.8
[2018-01-13 10:38] VITALS: TEMP 97.8
[2018-01-13] MEDS ORDERED: LACTATED RINGERS 1,000 ML IV ONE (10:56)
[2018-01-13] MEDS ORDERED: LIDOCAINE 1% 20 ML VIAL (10MG/ML) FOR IV START INTRADERMA ONE (10:57)
--- NOTE | 2018-01-13 11:42 | P.PCN ---
Date of Procedure: 01/13/18 Surgeon: Oscar Moeller Description of Procedure: PREOPERATIVE DIAGNOSIS : 1- Lumbar spondylosis with Facet Arthropathy without myelopathy . 2- Lumber degenerative disc disease POSTOPERATIVE DIAGNOSIS: 1- Lumbar spondylosis with Facet Arthropathy without myelopathy . 2- Lumber degenerative disc disease PROCEDURE: Diagnostic bilateral L3 -4 , L4 -5 , and L5-S1 medial branch block under fluoroscopy ANESTHESIA: Local anesthetic and 2 mg of Dilantin 100 migrans of fentanyl EBL: Minimal COMPLICATION: None. IV FLUIDS: none PROCEDURE INDICATION: Chronic low back pain secondary to Facet arthropathy unresponsive to conservative treatment. PROCEDURE DESCRIPTION: the patient was seen and identified in the preop holding area , risks and benefits and possible complications of the procedure and alternative were discussed with the patient, and the patient agreed to proceed with the procedure and signed the consent IV was started and vital signs monitored during the procedure and fluoroscopy was used to maximize the benefit and accuracy of the needle placement, and sedation was given to decrease patient anxiety, patient was taken to the procedure room and placed in prone position vital signs monitored in the back prepped. Under strict sterile technique using a right oblique fluoroscopy ,the junction of the transverse process and the superior articulating process of the right L3- 4 , L4- 5, and L5-S1 vertebra which corresponding to the fluoroscopy image of the eye of the Wily dog on the block side for the medial branches and subsequently , after local infiltration of skin and subcu tissuies with lidocaine 1% one mL at each level ,then one 25-gauge Quincke-type needles was placed at the junction of the base of the transverse process and the superior articular process at the appropriate level, and the needle was advanced until the periosteum contacted, needle placement confirmed with AP oblique and lateral view and after appropriate needle placement confirmed, and after negative aspiration, 0.5 mL of Marcaine 0.25% mixed with 40 mg depomedrol in divided doses was injected at each level and the needle subsequently removed and the same procedure repeated for the left side at left side at L3-4 , L4- 5 and L5-S1 levels. At the end of the procedure and the needles removed and a bandage applied after the skin was cleaned the cleaning solution patient taken to recovery room in stable condition and monitors in the recovery room for 20-30 minutes and discharged home in stable condition after discharge criteria met and patient will follow up for repeat of this procedure in 2-4 weeks.
[2018-01-13] MEDS ORDERED: LACTATED RINGERS 1,000 ML IV SCH (11:45)
--- NOTE | 2018-01-13 11:48 | FL ---
Fluoroscopy HISTORY: Pain 4 seconds fluoroscopy time supplied to the referring clinician. 1 intraoperative C-arm images docume nt the procedure. See dictated report from anesthesia.
[2018-01-13] MEDS ORDERED: IV FLUID CONTINUATION 650 ML IV ONE (11:55)
[2018-01-13 12:08] VITALS: RESP 18
[2018-01-13 12:27] VITALS: BP 114/60; PULSE 76
== END 2018-01-13 12:30 | disposition home or self-care (01) ==
LOC: ORPAIN 08:48
PROVIDERS: ATTEND Pain Medicine Pain Medicine
DX: G89.29 Other chronic pain (principal); M47.816 Spondylosis without myelopathy or radiculopathy, lumbar region; M51.36 Other intervertebral disc degeneration, lumbar region; I25.10 Atherosclerotic heart disease of native coronary artery without angina pectoris; Z95.5 Presence of coronary angioplasty implant and graft; Z79.02 Long term (current) use of antithrombotics/antiplatelets
CPT/HCPCS: 81025; 64493; 64494; 64495; J1030; J2001; 99152

== ENCOUNTER 2018-02-04 08:18 | Day surgery (SDC) | payer MEDICARE, OTHER ==
[2018-01-29 14:55] VITALS: BMI 54.8
--- NOTE | 2018-02-04 08:26 | P.PCN ---
Date of Procedure: 02/04/18 Anesthesia: none Condition: stable Disposition: no change Description of Procedure: PREOPERATIVE DIAGNOSIS : 1- Lumbar spondylosis with Facet Arthropathy without myelopathy . 2- Lumber degenerative disc disease POSTOPERATIVE DIAGNOSIS: 1- Lumbar spondylosis with Facet Arthropathy without myelopathy . 2- Lumber degenerative disc disease PROCEDURE: Diagnostic bilateral L3 -4 , L4 -5 , and L5-S1 medial branch block under fluoroscopy ANESTHESIA: Local anesthetic and 2 mg of versed 100 migrans of fentanyl EBL: Minimal COMPLICATION: None. IV FLUIDS: none PROCEDURE INDICATION: Chronic low back pain secondary to Facet arthropathy unresponsive to conservative treatment. PROCEDURE DESCRIPTION: the patient was seen and identified in the preop holding area , risks and benefits and possible complications of the procedure and alternative were discussed with the patient, and the patient agreed to proceed with the procedure and signed the consent IV was started and vital signs monitored during the procedure and fluoroscopy was used to maximize the benefit and accuracy of the needle placement, and sedation was given to decrease patient anxiety, patient was taken to the procedure room and placed in prone position vital signs monitored in the back prepped. Under strict sterile technique using a right oblique fluoroscopy ,the junction of the transverse process and the superior articulating process of the right L3- 4 , L4- 5, and L5-S1 vertebra which corresponding to the fluoroscopy image of the eye of the Wily dog on the block side for the medial branches and subsequently , after local infiltration of skin and subcu tissuies with lidocaine 1% one mL at each level ,then one 25-gauge Quincke-type needles was placed at the junction of the base of the transverse process and the superior articular process at the appropriate level, and the needle was advanced until the periosteum contacted, needle placement confirmed with AP oblique and lateral view and after appropriate needle placement confirmed, and after negative aspiration, 0.5 mL of Marcaine 0.25% mixed with 40 mg depomedrol in divided doses was injected at each level and the needle subsequently removed and the same procedure repeated for the left side at left side at L3-4 , L4- 5 and L5-S1 levels. At the end of the procedure and the needles removed and a bandage applied after the skin was cleaned the cleaning solution patient taken to recovery room in stable condition and monitors in the recovery room for 20-30 minutes and discharged home in stable condition after discharge criteria met and patient will follow up radiofrequency ablation in 4 weeks.
[2018-02-04 08:36] VITALS: TEMP 96.3
[2018-02-04] MEDS ORDERED: LIDOCAINE 1% 20 ML VIAL (10MG/ML) FOR IV START INTRADERMA ONE (08:55)
[2018-02-04] MEDS ORDERED: IV FLUID CONTINUATION 1,000 ML IV ONE ×2 (09:32)
--- NOTE | 2018-02-04 09:39 | FL ---
EXAMINATION TYPE: FL guided pain mgmt statistic DATE OF EXAM: 02/04/2018 CLINICAL HISTORY: Low back pain. TECHNIQUE: Fluoroscopy. COMPARISON: None. FINDINGS: Fluoroscopic guidance was provided during pain relief procedure performed by Dr. Xie . A total of 71 seconds of fluoroscopic time was utilized during the procedure and 6 spot images are a cquired. Images acquired shows needle localization at multiple levels in the low back. IMPRESSION: As Above.
[2018-02-04 09:48] VITALS: BP 103/55; PULSE 79; RESP 20
--- NOTE | 2018-02-06 07:19 | CDI ---
Date: 02/06/18 CDS/Interactive Art Director Name: Daria Jaffe Phone: If any questions, call Bebe Justin Quar[employer] Supervisor [employer] at [phone] Patient Name: Kacy Woods Admit Date: 02/04/18 Discharge Date: 02/04/18 ATTENTION: The [employer] Coding Staff appreciate your assistance in clarifying documentation. Please respond to the clarification below the line at the bottom and electronically sign. The [employer] Coding staff will review the response and follow-up if needed. Please note: Queries are made part of the Legal Health Record. If you have any questions, please contact the Quarry Supervisor [employer] [facility]. Dear Dr. Xie, Please provide clarification as to the type of sedation provided. Please clarify if Moderate/conscious sedation or MAC/unconscious sedation was provided to the patient. Thank you for your kind consideration. Moderate Sedation MTDD
== END 2018-02-04 10:01 | disposition home or self-care (01) ==
LOC: ORPAIN 08:18
PROVIDERS: ATTEND Anesthesiology
DX: G89.29 Other chronic pain (principal); M47.816 Spondylosis without myelopathy or radiculopathy, lumbar region; M51.36 Other intervertebral disc degeneration, lumbar region; J44.9 Chronic obstructive pulmonary disease, unspecified; Z95.5 Presence of coronary angioplasty implant and graft; E66.01 Morbid (severe) obesity due to excess calories; Z68.43 Body mass index [BMI] 50.0-59.9, adult
CPT/HCPCS: 81025; 64493; 64494; 64495; J2250; J3301; J2001; 99152

== ENCOUNTER → 2018-03-03 | Outpatient (CLI) | payer MEDICARE, OTHER ==
[2018-03-03 12:54] VITALS: BP 126/86; PULSE 101; RESP 18
--- NOTE | 2018-03-03 13:44 | P.PAINPG ---
Subjective Progress Note Date: 03/03/18 This is follow-up visit for this patient with a history of severe and chronic low back pain secondary to lumbar degenerative disc diseases , lumbar spondylosis with facet arthropathy, We have done interventional pain procedures lumbar epidural steroid injection she has no benefit, and recently we have done diagnostic medial branch block lumbar area L3/L4 5/L5-S1 And she reported that she got more than 70% decrease in her pain after the diagnostic medial branch block for this is and she will be a good candidate to have radiofrequency ablation of the medial branch Patients currently on [place] 10/325 every 6 hours, Neurontin 800 mg 3 times a day , Flexeril 10 mg to 6 hours from her primary care Patient denies any side effects of the medication, denies excessive drowsiness or sleepiness, denies suicidal ideation, and reports that the current pain medication is helping to control the pain and improve activity of daily living Patient denies any motor or sensory deficit , patient denies any fever or night sweats, denies any change in the bowel movements or urination Physical Examinations : 1-Constitutional : Cooperative , not in acute distress . 2-HEENT : nech ; supple , no Lymphadenopathy , no Thyromegaly , normal thyroid size . eyes : no ptosis , no icterus, no photophobia . ENT : normal of hearing , normal oropharynx , no Thrush . 3- Respiratory : Chest clear to auscultations Bilaterally , no wheezing , no Rhonchi . 4- Cardiovascular : regular rate and rhythem , S1 , S2 , no S3 , no S4. 5- Gastrointestinal : abdomen soft no tenderness , bowel sounds positive all four quadrents , no organomegally . 6- Genitourinary : Defferred . 7- neurologic: Cranial nerve II to XII intact , no focal neurological deffecit . 8- Psychatric: alert , oriented X 3 , appropriate affect , intact judgment and insight . 9- Lymphatic : no Lymphadenopathy . 10- Musculoskeltal : exams of the Lumber spine =motor strength lower extremities ,thigh and legs .5/5 deep tendon reflexes : normal Knee Jerk , normal ankle Jerk . lumber facet Loading Test positive strait leg raising test positive at 30 degree , RT ,LT , Fabere test positive RT and positive LT . Range of motion: Range of motion in flexion of the lumbar spine 30 degrees Range of motion range of motion of extension of the lumbar spine 10 Assessment and plan = Chronic low back pain secondary to lumbar degenerative disc disease , lumbar spondylosis with facet arthropathy without myelopathy Status post diagnostic medial branch block lumbar area 2 she had more than 50% decrease in her low back pain after each diagnostic medial branch block She will be scheduled to have radiofrequency ablation medial branch lumbar area and is l 3-4/L4 5/L5-S1 was arthritis and then we will do the left side with her on She had to hold the Plavix for 1 week before the procedure and get approval from the risk control consultant before we proceed Objective - Vital Signs Vital signs: Vital Signs Temp Pulse 101 H 03/03/18 12:45 Resp 18 03/03/18 12:45 BP 126/86 03/03/18 12:45 Pulse Ox 99 03/03/18 12:45 Intake & Output 03/02/18 03/03/18 03/03/18 18:59 06:59 18:59 Weight 136.078 kg PQRS Measure Charge Sheet Measure #130: Documentation of Current Meds in Medical Chart: Patient's medications documented in chart Measure #226: Tobacco Use: Screen & Cessation Intervention: Pt screened for tobacco use AND intervention given Measure #111: Pneumonia Vaccination: Pneumococcal vaccine administered or previously received Measure #47: Advance Care Plan: Advance care planning discussed & documented, plan or surrogate given Measure #412: Opioid Treatment Agreement: No documentation of signed opioid treatment agreement Measure #408: Opioid Therapy Follow-up Evaluation: Patient had NO f/u eval minimum every 3 months during opioid therapy Measure #317: Preventitive Care & Scrn High Bld Press & F/U: Normal blood pressure, f/u not required Measure #128: Body Mass Index (BMI) Screening & Follow-up: BMI documented ABOVE normal parameters - f/u documented Measure #131: Pain Assessment & Follow-up: Pain positive & plan documented, Follow-up scheduled Measure #431: Unhealthy Alcohol Use Preventative Care & Scrn: Patient not identified as an unhealthy alcohol user PQRS Narrative: Smoking Status Current every day smoker Do You Want the Pneumonia Vaccine Up to Date Vaccine AT THIS TIME? Blood Pressure 126/86 Pain Intensity [Lower Back] 5 Scale Used Numeric (1 - 10) Hx Alcohol Use (MH) No Home Medications: Ambulatory Orders Atorvastatin [Lipitor] 80 mg PO DAILY 07/14/14 Clopidogrel Bisulfate [Plavix] 75 mg PO DAILY 07/14/14 Aspirin 81 mg PO DAILY 11/14/14 Nitroglycerin Sl Tabs [Nitrostat] 0.4 mg SUBLINGUAL Q5M PRN #0 tab 11/16/14 Lisinopril [Prinivil] 20 mg PO DAILY 12/17/15 Albuterol Inhaler [Ventolin Hfa Inhaler] 1 - 2 puff INHALATION RT-Q6H PRN Cyclobenzaprine [Flexeril] 10 mg PO Q6H 08/31/16 Gabapentin 800 mg PO QID 08/31/16 Albuterol Nebulized [Ventolin Nebulized] 2.5 mg INHALATION RT-BID 12/02/16 LORazepam [Ativan] 0.5 mg PO DAILY 12/02/16 amLODIPine [Norvasc] 5 mg PO DAILY 12/02/16 HYDROcodone/APAP 10-325MG [[place] 10-325] 1 tab PO TID PRN 08/27/17 Controlled Substance Measures - Controlled Substance Measures Is patient prescribed a controlled substance at discharge?: No When asked, does pt state using other controlled substances?: No If prescribed controlled substance>3 days was MAPS reviewed?: No If Rx opioid, was Start Talking consent form obtained?: No If opioid is for acute pain is fill amount 7 days or less?: No Was information provided regarding opioid addiction?: No
== END | disposition home or self-care (01) ==
LOC: PNWHC3 12:27
PROVIDERS: ATTEND Specialist
DX: G89.29 Other chronic pain (principal); M51.36 Other intervertebral disc degeneration, lumbar region; M47.816 Spondylosis without myelopathy or radiculopathy, lumbar region; M46.96 Unspecified inflammatory spondylopathy, lumbar region; F17.200 Nicotine dependence, unspecified, uncomplicated; Z79.02 Long term (current) use of antithrombotics/antiplatelets; Z79.82 Long term (current) use of aspirin; Z79.891 Long term (current) use of opiate analgesic; Z79.899 Other long term (current) drug therapy
CPT/HCPCS: 99211

== ENCOUNTER 2018-03-15 09:04 | Day surgery (SDC) | payer MEDICARE, OTHER ==
[2018-03-12 08:34] VITALS: BMI 54.8
[2018-03-15 09:30] VITALS: RESP 18; TEMP 96.7
[2018-03-15] MEDS ORDERED: LIDOCAINE 1% 20 ML VIAL (10MG/ML) FOR IV START INTRADERMA ONE (10:00)
--- NOTE | 2018-03-15 10:36 | P.PCN ---
Date of Procedure: 03/15/18 Surgeon: Kirsty Cross Pathology: none sent Condition: stable Disposition: PACU Description of Procedure: PREOPERATIVE DIAGNOSIS: Lumbar spondylosis without myelopathy, morbid obesity POSTOPERATIVE DIAGNOSIS: Lumbar spondylosis without myelopathy,morbid obesity PROCEDURES : Right Radiofrequency thermocoagulation L3-L4, L4-L5, and L5-S1 medial branch, with fluoroscopic guidance ANESTHESIA: IV moderate conscious sedation with versed and fentanyl and local infiltration with lidocaine 1% 5 ml EBL: Minimal PROCEDURE INDICATION: The patient with low back pain secondary to lumbar facet arthropathy who had more than 50% relief of her pain with previous diagnostic lumbar medial branch block with bupivacaine. PROCEDURE DESCRIPTION / TECHNIQUE: The patient was seen and identified in the preoperative area. Risks, benefits, complications, including but not limited to risk of infection ,bleeding , allergic reactions to the medications and no complete pain relief , and alternatives were discussed with the patient, the patient agreed to proceed with the procedure and signed the consent. IV was started. Vital signs remained stable throughout the procedure. Patient was taken to the OR and time out was completed. The patient was placed in the prone position on the procedure table. The lumber area was prepped and draped in the usual sterile fashion. . Vital signs were closely monitored during the procedure .IV sedation was used during the procedure to decrease patients anxiety. The target points were identified as follows: For the L5-S1 level which corresponds to the dorsal ramus of L5 the target point was at the superior medial aspect of the sacral ala on the Rt side of the spine on the AP view of fluoroscopy and for the L2, L3, and L4 medial branches the target points were at the connection between the transverse process and the superior articular process of L3, L4, and L5 vertebra respectively on the Rt oblique view of fluoroscopy. skin was marked, and localized with 1% lidocaineat these points. Subsequently, an 18 [id number] radiofrequency needles with a 10-mm curved active tips were advanced guided by fluoroscopy to each of the target points mentioned above in a superior medial direction to get the active tips as parallel as possible to the medial branches tracks. AP, oblique, and lateral views of fluoroscopy were used to verify needle tips position. Each level then underwent motor testing at 2.5 Hz and 0 to 3 volt with local stimulation, but no radicular symptoms down the legs. Thereafter radiofrequency thermocoagulation at 80 degrees celsius for 90 seconds after injecting 1 ml of PF Ropivacaine 0.5%(3 mls) with 40 mg of Kenalog. At the end of the procedure, the skin was cleansed and bandages were applied. COMPLICATIONS: No acute complications. DISPOSITION / PLANS: The patient was placed in a supine position and transferred to the recovery area in a stable condition for observation and was discharged from the recovery room after meeting discharge criteria. Home discharge instructions given to the patient by the staff. The patient was reexamined prior to discharge. The patient will schedule a follow up in the clinic in 2-4 weeks.
[2018-03-15 11:14] VITALS: BP 117/83; PULSE 87
[2018-03-15] MEDS ORDERED: IV FLUID CONTINUATION 1,000 ML IV ONE (11:15)
--- NOTE | 2018-03-15 11:47 | FL ---
Fluoroscopy INDICATION: Pain FINDINGS: Fluoroscopy time: 39 seconds. Images obtained: 3. IMPRESSIONS: 1. Documentation of fluoroscopy.
== END 2018-03-15 11:31 | disposition home or self-care (01) ==
LOC: ORPAIN 09:04
PROVIDERS: ATTEND Anesthesiology
DX: G89.29 Other chronic pain (principal); M51.36 Other intervertebral disc degeneration, lumbar region; M47.816 Spondylosis without myelopathy or radiculopathy, lumbar region; E66.01 Morbid (severe) obesity due to excess calories; Z68.43 Body mass index [BMI] 50.0-59.9, adult; F17.200 Nicotine dependence, unspecified, uncomplicated; Z79.02 Long term (current) use of antithrombotics/antiplatelets; Z79.891 Long term (current) use of opiate analgesic; Z79.899 Other long term (current) drug therapy
CPT/HCPCS: 81025; 64635; 64636 ×2; J2250; J3301; J2001; J3010; 99152

== ENCOUNTER → 2018-04-19 | Outpatient (CLI) | payer MEDICARE, OTHER ==
[2018-04-19 13:49] VITALS: BP 116/66; PULSE 94; RESP 16; TEMP 98.3
--- NOTE | 2018-04-19 14:27 | P.PAINPG ---
Subjective Progress Note Date: 04/19/18 This is follow-up visit for this patient with a history of severe and chronic low back pain secondary to lumbar degenerative disc diseases , lumbar spondylosis with facet arthropathy, We have done interventional pain procedures lumbar epidural steroid injection she has no benefit, and recently we have done diagnostic medial branch block lumbar area L3/L4 5/L5-S1 And she reported that she got more than 70% decrease in her pain after the diagnostic medial branch block , and she weeks ago we did the radiofrequency ablation of the median branch on the right side, and she will be scheduled to have the radiofrequency on the left side, she reported that she continued to have severe localized pain on the right side and buttock area Pain is constant, severe, she denies any motor or sensory deficits denies any fever or night sweats and she denies any change in the motor movement and Patients currently on [place] 10/325 every 6 hours, Neurontin 800 mg 3 times a day , Flexeril 10 mg to 6 hours from her primary care Patient denies any side effects of the medication, denies excessive drowsiness or sleepiness, denies suicidal ideation, and reports that the current pain medication is helping to control the pain and improve activity of daily living Patient denies any motor or sensory deficit , patient denies any fever or night sweats, denies any change in the bowel movements or urination Physical Examinations : 1-Constitutional : Cooperative , not in acute distress . 2-HEENT : nech ; supple , no Lymphadenopathy , no Thyromegaly , normal thyroid size . eyes : no ptosis , no icterus, no photophobia . ENT : normal of hearing , normal oropharynx , no Thrush . 3- Respiratory : Chest clear to auscultations Bilaterally , no wheezing , no Rhonchi . 4- Cardiovascular : regular rate and rhythem , S1 , S2 , no S3 , no S4. 5- Gastrointestinal : abdomen soft no tenderness , bowel sounds positive all four quadrents , no organomegally . 6- Genitourinary : Defferred . 7- neurologic: Cranial nerve II to XII intact , no focal neurological deffecit . 8- Psychatric: alert , oriented X 3 , appropriate affect , intact judgment and insight . 9- Lymphatic : no Lymphadenopathy . 10- Musculoskeltal : exams of the Lumber spine =motor strength lower extremities ,thigh and legs .5/5 deep tendon reflexes : normal Knee Jerk , normal ankle Jerk . lumber facet Loading Test positive strait leg raising test positive at 30 degree , RT ,LT , Fabere test positive RT and positive LT . Range of motion: Range of motion in flexion of the lumbar spine 30 degrees Range of motion range of motion of extension of the lumbar spine 10 Severe tenderness over the right iliolumbar ligament area Assessment and plan = Chronic low back pain secondary to lumbar degenerative disc disease , lumbar spondylosis with facet arthropathy without myelopathy,Right iliolumbar ligament neurology Status post radiofrequency ablation of the right median branch lumbar area She will be scheduled to have radiofrequency ablation left medial branch lumbar area and at the same time she could benefit from ongoing right iliolumbar ligament steroid injection She had to hold the Plavix for 1 week before the procedure and get approval from the information technology associate before we proceed Objective - Vital Signs Vital signs: Vital Signs Temp 98.3 F 04/19/18 13:46 Pulse 94 04/19/18 13:46 Resp 16 04/19/18 13:46 BP 116/66 04/19/18 13:46 Pulse Ox 97 04/19/18 13:46 Intake & Output 04/18/18 04/19/18 04/19/18 18:59 06:59 18:59 Weight 136.078 kg PQRS Measure Charge Sheet Measure #130: Documentation of Current Meds in Medical Chart: Patient's medications documented in chart Measure #226: Tobacco Use: Screen & Cessation Intervention: Pt screened for tobacco use AND intervention given Measure #111: Pneumonia Vaccination: Pneumococcal vaccine NOT administered or previously given Measure #47: Advance Care Plan: Advance care planning discussed & documented, pt chose/unable to give Measure #412: Opioid Treatment Agreement: No documentation of signed opioid treatment agreement Measure #408: Opioid Therapy Follow-up Evaluation: Patient had NO f/u eval minimum every 3 months during opioid therapy Measure #317: Preventitive Care & Scrn High Bld Press & F/U: Normal blood pressure, f/u not required Measure #128: Body Mass Index (BMI) Screening & Follow-up: BMI documented ABOVE normal parameters - f/u documented Measure #131: Pain Assessment & Follow-up: Pain positive & plan documented, Follow-up scheduled Measure #431: Unhealthy Alcohol Use Preventative Care & Scrn: Patient not identified as an unhealthy alcohol user PQRS Narrative: Smoking Status Current every day smoker Do You Want the Pneumonia No Vaccine AT THIS TIME? Blood Pressure 116/66 Pain Intensity [Lower Back] 5 Scale Used Numeric (1 - 10) Hx Alcohol Use (MH) No Home Medications: Ambulatory Orders Atorvastatin [Lipitor] 80 mg PO DAILY 07/14/14 Clopidogrel Bisulfate [Plavix] 75 mg PO DAILY 07/14/14 Aspirin 81 mg PO DAILY 11/14/14 Nitroglycerin Sl Tabs [Nitrostat] 0.4 mg SUBLINGUAL Q5M PRN #0 tab 11/16/14 Lisinopril [Prinivil] 20 mg PO DAILY 12/17/15 Albuterol Inhaler [Ventolin Hfa Inhaler] 1 - 2 puff INHALATION RT-Q6H PRN Cyclobenzaprine [Flexeril] 10 mg PO Q6H 08/31/16 Gabapentin 800 mg PO TID 08/31/16 Albuterol Nebulized [Ventolin Nebulized] 2.5 mg INHALATION RT-BID 12/02/16 LORazepam [Ativan] 0.5 mg PO DAILY 12/02/16 amLODIPine [Norvasc] 5 mg PO DAILY 12/02/16 HYDROcodone/APAP 10-325MG [[place] 10-325] 1 tab PO TID PRN 08/27/17 Controlled Substance Measures - Controlled Substance Measures Is patient prescribed a controlled substance at discharge?: No When asked, does pt state using other controlled substances?: No If prescribed controlled substance>3 days was MAPS reviewed?: No If Rx opioid, was Start Talking consent form obtained?: No If opioid is for acute pain is fill amount 7 days or less?: No Was information provided regarding opioid addiction?: No
== END | disposition home or self-care (01) ==
LOC: PNWHC3 13:17
PROVIDERS: ATTEND Specialist
DX: G89.29 Other chronic pain (principal); M51.36 Other intervertebral disc degeneration, lumbar region; M47.816 Spondylosis without myelopathy or radiculopathy, lumbar region; M46.96 Unspecified inflammatory spondylopathy, lumbar region; F17.200 Nicotine dependence, unspecified, uncomplicated; Z79.899 Other long term (current) drug therapy; Z79.891 Long term (current) use of opiate analgesic; Z79.82 Long term (current) use of aspirin
CPT/HCPCS: 99211

== ENCOUNTER 2018-05-06 07:16 | Day surgery (SDC) | payer MEDICARE, OTHER ==
[2018-05-06] MEDS ORDERED: LIDOCAINE 1% 20 ML VIAL (10MG/ML) FOR IV START INTRADERMA ONE (08:08)
[2018-05-06 08:23] VITALS: TEMP 96.8
--- NOTE | 2018-05-06 09:21 | P.PCN ---
Date of Procedure: 05/06/18 Surgeon: Kirsty Cross Pathology: none sent Condition: stable Disposition: PACU Description of Procedure: PREOPERATIVE DIAGNOSIS: Lumbar spondylosis without myelopathy, morbid obesity POSTOPERATIVE DIAGNOSIS: Lumbar spondylosis without myelopathy,morbid obesity PROCEDURES : Radiofrequency thermocoagulation,L2-4, L3-L4, L4-L5, and L5-S1 medial branch, with fluoroscopic guidance, left side. Right ileo lumbar ligament injection ANESTHESIA: IV moderate conscious sedation with versed and fentanyl and local infiltration with lidocaine 1% 5 ml EBL: Minimal PROCEDURE INDICATION: The patient with low back pain secondary to lumbar facet arthropathy who had more than 50% relief of her pain with previous diagnostic lumbar medial branch block with bupivacaine. PROCEDURE DESCRIPTION / TECHNIQUE: The patient was seen and identified in the preoperative area. Risks, benefits, complications, including but not limited to risk of infection ,bleeding , allergic reactions to the medications and no complete pain relief , and alternatives were discussed with the patient, the patient agreed to proceed with the procedure and signed the consent. IV was started. Vital signs remained stable throughout the procedure. Patient was taken to the OR and time out was completed. The patient was placed in the prone position on the procedure table. The lumber area was prepped and draped in the usual sterile fashion. . Vital signs were closely monitored during the procedure .IV sedation was used during the procedure to decrease patients anxiety. The target points were identified as follows: For the L5-S1 level which corresponds to the dorsal ramus of L5 the target point was at the superior medial aspect of the sacral ala on the leftside of the spine on the AP view of fluoroscopy and for the L2, L3, and L4 medial branches the target points were at the connection between the transverse process and the superior articular process of L3, L4, and L5 vertebra respectively on the left oblique view of fluoroscopy. skin was marked, and localized with 1% lidocaineat these points. Subsequently, an 18 [id number] radiofrequency needles with a 10-mm curved active tips were advanced guided by fluoroscopy to each of the target points mentioned above in a superior medial direction to get the active tips as parallel as possible to the medial branches tracks. AP, oblique, and lateral views of fluoroscopy were used to verify needle tips position. Each level then underwent motor testing at 2.5 Hz and 0 to 3 volt with local stimulation, but no radicular symptoms down the legs. Thereafter radiofrequency thermocoagulation at 80 degrees celsius for 90 seconds after injecting 1 ml of PF ropivacaine 0.5%(3 mls) with 40 mg of Kenalog. At the end of the procedure, the skin was cleansed and bandages were applied. Right lumbar injection under fluoroscopic guidance: The AP view fluoroscopy was used to identify the tip of the L5 transverse process on the right side and then I used 22-gauge 5 inch Quincke spinal turgor in a perpendicular track the skin down to the level of the L5 transverse process tip on the right side and then I injected 5 MLS of ropivacaine 0.5% COMPLICATIONS: No acute complications. DISPOSITION / PLANS: The patient was placed in a supine position and transferred to the recovery area in a stable condition for observation and was discharged from the recovery room after meeting discharge criteria. Home discharge instructions given to the patient by the staff. The patient was reexamined prior to discharge. The patient will schedule a follow up in the clinic in 2-4 weeks.
[2018-05-06] MEDS ORDERED: IV FLUID CONTINUATION 1,000 ML IV ONE (09:25)
[2018-05-06 09:29] VITALS: RESP 16
[2018-05-06 09:45] VITALS: BP 120/84; PULSE 80
--- NOTE | 2018-05-06 11:56 | FL ---
Fluoroscopy HISTORY: Pain 41 seconds fluoroscopy time supplied to the referring clinician. 3 intraoperative C-arm images docum ent the procedure. See dictated report from anesthesia.
== END 2018-05-06 10:05 | disposition home or self-care (01) ==
LOC: ORPAIN 07:16
PROVIDERS: ATTEND Anesthesiology
DX: M47.816 Spondylosis without myelopathy or radiculopathy, lumbar region (principal); E66.01 Morbid (severe) obesity due to excess calories; I25.10 Atherosclerotic heart disease of native coronary artery without angina pectoris; Z79.02 Long term (current) use of antithrombotics/antiplatelets
CPT/HCPCS: 20550; 64635; 64636; J2250; J3301; J2001; J3010; 20552; 99152; 99153

== ENCOUNTER 2018-08-10 07:49 | Observation (INO) | payer MEDICARE, OTHER ==
[2018-08-10] MEDS ORDERED: SODIUM CHLORIDE 0.9% 500 ML 500 ML IV STA (08:10)
[2018-08-10] MEDS ORDERED: SODIUM CHLORIDE 0.9% 1,000 ML IV STA (08:10)
[2018-08-10] MEDS ORDERED: MORPHINE SULFATE 4 MG/ML SYRINGE IV STA (08:10)
[2018-08-10 08:58] LABS: Basophils % (A) 0 %; Eosinophils # (A) 0.2 k/uL (0-0.7); Eosinophils % (A) 1 %; HCT 41.5 % (34.0-46.0); HGB 13.2 gm/dL (11.4-16.0); Lymphocytes # (A) 1.9 k/uL (1.0-4.8); Lymphocytes % (A) 15 %; MCH 29.6 pg (25.0-35.0); MCHC 31.8 g/dL (31.0-37.0); MCV 93.1 fL (80.0-100.0); Mean Platelet Volume 6.8; Monocytes # (A) 0.7 k/uL (0-1.0); Monocytes % (A) 6 %; Neutrophils # (A) 9.8 k/uL (1.3-7.7); Neutrophils % (A) 76 %; Platelet Count 403 k/uL (150-450); RBC 4.46 m/uL (3.80-5.40); RDW 15.2 % (11.5-15.5); WBC 12.8 k/uL (3.8-10.6)
--- NOTE | 2018-08-10 09:09 | ED ---
Chest Pain HPI - General Chief Complaint: Chest Pain Stated Complaint: Chest pain Time Seen by Provider: 08/10/18 08:08 Source: patient, RN notes reviewed, old records reviewed Mode of arrival: ambulatory Limitations: no limitations - History of Present Illness Initial Comments: This is a 42-year-old female the ER for chest pain. Patient is history of coronary artery disease, patient currently does take Plavix. She's been taking all medications as prescribed. States pain started last night with central or chest with some shortness of breath. She states that she had a prior heart attack he was similar pain but she was more diaphoretic more swelling which she states she does have more like chills today. Mild shortness of breath. No recent fever cough or congestion recent travel history no known sick contacts. No change in medications recently. No recent heart evaluations MD Complaint: chest pain -: hour(s) (12) Onset: during rest Pain Location: substernal, left chest Pain Radiation: back Severity: mild Severity scale (1-10): 3 Quality: tightness, heaviness Consistency: constant Improves With: nothing Worsens With: nothing Anginal Symptoms: dyspnea Treatments Prior to Arrival: none - Related Data Home Medications Medication Instructions Recorded Confirmed Atorvastatin [Lipitor] 80 mg PO DAILY 07/14/14 08/10/18 Clopidogrel Bisulfate [Plavix] 75 mg PO DAILY 07/14/14 08/10/18 Aspirin 81 mg PO DAILY 11/14/14 08/10/18 Lisinopril [Prinivil] 20 mg PO BID 12/17/15 08/10/18 Gabapentin 800 mg PO HS 08/31/16 08/10/18 LORazepam [Ativan] 0.5 mg PO DAILY PRN 12/02/16 08/10/18 amLODIPine [Norvasc] 5 mg PO DAILY 12/02/16 08/10/18 HYDROcodone/APAP 10-325MG [[place] 1 tab PO TID PRN 08/27/17 08/10/18 10-325] Furosemide [Lasix] 20 mg PO DAILY 08/10/18 08/10/18 Meclizine HCl [Bonine] 25 mg PO TID PRN 08/10/18 08/10/18 Metoprolol Tartrate [Lopressor] 25 mg PO DAILY 08/10/18 08/10/18 Montelukast Sodium [Singulair] 10 mg PO HS 08/10/18 08/10/18 Ranitidine HCl [Zantac] 150 mg PO BID 08/10/18 08/10/18 Previous Rx's Medication Instructions Recorded Nitroglycerin Sl Tabs [Nitrostat] 0.4 mg SUBLINGUAL Q5M PRN #0 tab 11/16/14 Allergies Allergy/AdvReac Type Severity Reaction Status Date / Time No Known Allergies Allergy Verified 08/10/18 07:54 Review of Systems ROS Statement: Those systems with pertinent positive or pertinent negative responses have been documented in the HPI. ROS Other: All systems not noted in ROS Statement are negative. EKG Findings - EKG Comments: EKG Findings:: EKG shows normal sinus pressure 96, ME 136, QRS 80, QTC 454 Past Medical History Past Medical History: Coronary Artery Disease (CAD), Chest Pain / Angina, Heart Failure, Hyperlipidemia, Hypertension, Myocardial Infarction ([place]), Musculoskeletal Disorder, Pneumonia Additional Past Medical History / Comment(s): back pain Last Myocardial Infarction Date:: 08-18-2011 History of Any Multi-Drug Resistant Organisms: None Reported Past Surgical History: Section, Cholecystectomy, Heart Catheterization With Stent Additional Past Surgical History / Comment(s): left leg sx,[facility] INJECTIONS Past Anesthesia/Blood Transfusion Reactions: Previous Problems w/ Anesthesia Additional Past Anesthesia/Blood Transfusion Reaction / Comment(s): HARD TIME WAKING UP AFTER ANESTHESIA. Date of Last Stent Placement:: 08-18-2011 Past Psychological History: Anxiety, Depression Smoking Status: Current every day smoker Past Alcohol Use History: None Reported Past Drug Use History: None Reported - Past Family History Mother History Unknown: Yes Father History Unknown: Yes Brother(s) Family Medical History: Deep Vein Thrombosis (DVT) General Exam Limitations: no limitations General appearance: alert, in no apparent distress, obese Head exam: Present: atraumatic, normocephalic, normal inspection Eye exam: Present: normal appearance, PERRL, EOMI. Absent: scleral icterus, conjunctival injection, periorbital swelling ENT exam: Present: normal exam, mucous membranes moist Neck exam: Present: normal inspection. Absent: tenderness, meningismus, lymphadenopathy Respiratory exam: Present: normal lung sounds bilaterally. Absent: respiratory distress, wheezes, rales, rhonchi, stridor Cardiovascular Exam: Present: normal rhythm, tachycardia, normal heart sounds. Absent: systolic murmur, diastolic murmur, rubs, gallop, clicks GI/Abdominal exam: Present: soft, normal bowel sounds. Absent: distended, tenderness, guarding, rebound, rigid Extremities exam: Present: normal inspection, full ROM, normal capillary refill. Absent: tenderness, pedal edema, joint swelling, calf tenderness Back exam: Present: normal inspection Neurological exam: Present: alert, oriented X3, CN II-XII intact Psychiatric exam: Present: normal affect, normal mood Skin exam: Present: warm, dry, intact, normal color. Absent: rash Course Vital Signs 08/10/18 07:50 Temperature 97.8 F Pulse Rate 111 H Respiratory 20 Rate Blood Pressure 137/84 O2 Sat by Pulse 100 Oximetry - Reevaluation(s) Reevaluation #1: 08/10/18 10:52 Medical record is reviewed Reevaluation #2: 08/10/18 10:[address] Hobson regarding admission, Boo is spoke with an acceptable for admission Reevaluation #3: 08/10/18 10:54 Patient's continue with persistent chest pain currently Critical Care Time Critical Care Time: Yes Total Critical Care Time: 31 Disposition Clinical Impression: Coronary artery disease, Chest pain Disposition: ADMITTED IP TO THIS HOSP Condition: Undetermined Instructions: Chest Pain (ED) Referrals: Bela Gant MD [Primary Care Provider] - 1-2 days
[2018-08-10 09:10] LABS: ALT 33 U/L (9-52); AST 17 U/L (14-36); Albumin 3.8 g/dL (3.5-5.0); Alkaline Phosphatase 129 U/L (38-126); Anion Gap 8 mmol/L; Blood Urea Nitrogen 14 mg/dL (7-17); Calcium 9.6 mg/dL (8.4-10.2); Carbon Dioxide 25 mmol/L (22-30); Chloride 107 mmol/L (98-107); Glucose 111 mg/dL (74-99); Lipase 52 U/L (23-300); Magnesium 2.1 mg/dL (1.6-2.3); Potassium 4.4 mmol/L (3.5-5.1); Sodium 140 mmol/L (137-145); Total Bilirubin 0.4 mg/dL (0.2-1.3); Total Protein 7.1 g/dL (6.3-8.2)
[2018-08-10 09:11] LABS: D-Dimer 0.55 mg/L FEU (<0.60); INR 0.8 (<1.2); Partial Thromboplastin Time 25.9 sec (22.0-30.0); Prothrombin Time 9.4 sec (9.0-12.0)
--- NOTE | 2018-08-10 09:18 | XR ---
EXAMINATION TYPE: XR chest 2V DATE OF EXAM: 08/10/2018 COMPARISON: 03/23/2017 HISTORY: Chest pain TECHNIQUE: Frontal and lateral views of the chest are obtained. FINDINGS: There is no focal air space opacity, pleural effusion, or pneumothorax seen. Slight right hemidiaphragmatic elevation is similar to the prior The cardiac silhouette size is within normal adamson its. The osseous structures are intact. Minimal multilevel degenerative changes of the thoracic spi ne are seen. IMPRESSION: No acute cardiopulmonary process.
[2018-08-10 09:20] LABS: Creatine Kinase <20 U/L (30-135)
[2018-08-10 09:32] LABS: Creatine Kinase MB <0.2 ng/mL (0.0-2.4); Troponin I <0.012 ng/mL (0.000-0.034)
[2018-08-10] MEDS ORDERED: ASPIRIN 81 MG PO STA (10:50)
[2018-08-10] MEDS ORDERED: HEPARIN SODIUM,PORCINE 5,000 UNIT/ML 1 ML VIAL IV PRN (10:50)
[2018-08-10] MEDS ORDERED: NITROGLYCERIN SL TABS 0.4 MG TAB SUBLINGUAL PRN ×2 (10:50→14:25)
[2018-08-10] MEDS ORDERED: HEPARIN SODIUM,PORCINE 5,000 UNIT/ML 1 ML VIAL IV ONE (10:50)
[2018-08-10] MEDS: HEPARIN SOD,PORK IN 0.45% NACL 25,000 UNIT in 0.45% NACL 1 250ML.BAG IV SCH (11:10)
[2018-08-10] MEDS: SODIUM CHLORIDE 0.9% 1,000 ML IV SCH ×2 (11:24→20:29)
[2018-08-10 12:32] VITALS: RESP 18
[2018-08-10] MEDS ORDERED: LORazepam 0.5 MG TAB PO PRN (14:25)
[2018-08-10] MEDS ORDERED: MECLIZINE 25 MG TAB PO PRN (14:25)
[2018-08-10] MEDS ORDERED: INFLUENZA VACCINE (6 MOS+) 60 MCG/0.5 ML SYRINGE IM ONE (14:41)
[2018-08-10] MEDS: HYDROcodone/APAP 10-325MG 1 EACH TAB PO PRN ×2 (14:48→20:28)
[2018-08-10] MEDS ORDERED: METOPROLOL TARTRATE 25 MG TAB PO STA (14:51)
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
[2018-08-10 16:26] LABS: Creatine Kinase <20 U/L (30-135)
[2018-08-10 16:40] LABS: Creatine Kinase MB <0.2 ng/mL (0.0-2.4); Troponin I <0.012 ng/mL (0.000-0.034)
[2018-08-10] MEDS ORDERED: CALCIUM CARBONATE 500 MG CHEWABLE PO PRN (17:12)
[2018-08-10] MEDS ORDERED: ACETAMINOPHEN TAB 500 MG TAB PO PRN (19:22)
[2018-08-10] MEDS ORDERED: ALPRAZolam 0.25 MG TAB PO PRN (19:22)
[2018-08-10] MEDS: LISINOPRIL 20 MG TAB PO SCH (20:29)
[2018-08-10] MEDS ORDERED: FAMOTIDINE 20 MG TAB PO SCH (21:00)
[2018-08-10] MEDS ORDERED: MONTELUKAST 10 MG TAB PO SCH (21:00)
[2018-08-10] MEDS ORDERED: TEMAZEPAM 15 MG CAP PO PRN (21:00)
[2018-08-10] MEDS ORDERED: GABAPENTIN 400 MG CAP PO SCH (21:00)
[2018-08-10] MEDS ORDERED: METOPROLOL TARTRATE 25 MG TAB PO SCH (21:00)
--- NOTE | 2018-08-10 21:02 | HP ---
HISTORY AND PHYSICAL CHIEF COMPLAINT: Chest pain. HISTORY OF PRESENT ILLNESS: This 42-year-old woman with a past medical history of multiple medical problems, including history of CAD and stent, history of CHF, CVA, TIA, hypertension, hyperlipidemia, history of pneumonia, cholecystectomy, anxiety, depression, being followed by Dr. Gant in the outpatient setting, does continue to smoke. The patient was complaining of central chest pain with some shortness of breath last night. The patient came to [facility] and was admitted for further evaluation and treatment. Patient had some minimal chills, also. The patient had significant lesions around the eyes, also. The initial troponins are negative at this time. Cardiology evaluation is sought. The initial EKG which was reviewed showed normal sinus rhythm and poor baseline. Otherwise, chest x-ray showed no acute abnormality. Cardiology evaluation is in progress. There is no history of any fever, rigors, headache, loss of consciousness or seizures. PAST MEDICAL HISTORY: 1. CAD, stent. 2. History of CHF. 3. CVA, TIA. 4. Hypertension. 5. Hyperlipidemia. 6. Myocardial infarction. 7. History of pneumonia. 8. History of cardiac arrest. 9. History of section. 10.Cholecystectomy. HOME MEDICATIONS: 1. Nitrostat 0.4 sublingually p.r.n. 2. Ativan 0.5 mg daily p.r.n. 3. Zantac 150 mg p.o. b.i.d. 4. Singulair 10 mg at bedtime. 5. Gabapentin 800 mg p.o. at bedtime. 6. Lopressor 25 mg p.o. daily. 7. Lasix 20 mg p.o. daily. 8. Plavix 75 mg p.o. daily. 9. Bonine (Meclizine) 25 mg t.i.d. p.r.n. 10.Prinivil 20 mg p.o. b.i.d. 11.Lipitor 80 mg p.o. daily. 12.Aspirin 81 mg daily. 13.Norvasc 5 mg p.o. daily. 14.[place] 10 mg t.i.d. p.r.n. ALLERGIES: NONE. FAMILY HISTORY: History of diabetes mellitus in the family. History of diverticulitis in the family. SOCIAL HISTORY: History of smoking, continued ongoing. No history of alcohol intake. REVIEW OF SYSTEMS: ENT: No diminished hearing. No diminished vision. CARDIOVASCULAR SYSTEM: As mentioned earlier. RESPIRATORY SYSTEM: As mentioned earlier. GI: No nausea, vomiting. : No dysuria or retention. NERVOUS SYSTEM: No numbness, weakness. ALLERGY/IMMUNOLOGY: No asthma, hayfever. MUSCULOSKELETAL: As mentioned earlier. HEMATOLOGY/ONCOLOGY: No history of anemia. ENDOCRINE: No history of diabetes, hypothyroidism. CONSTITUTIONAL: As mentioned earlier. DERMATOLOGY: Negative. RHEUMATOLOGY: Negative. PSYCHIATRY: As mentioned earlier. PHYSICAL EXAMINATION: Patient is alert, oriented x3. The pulse is 92, blood pressure 130/69, respiration 18, temperature 97.7, pulse ox 98% on room air. HEENT: Conjunctivae normal. NECK: No jugular venous distention. CARDIOVASCULAR SYSTEM: S1, S2 muffled. RESPIRATORY SYSTEM: Breath sounds diminished at the bases. A few scattered rhonchi and crackles. ABDOMEN: Soft, non-tender. No mass palpable. LEGS: No edema. No swelling. NERVOUS SYSTEM: Higher functions as mentioned earlier. Moves all 4 limbs. No focal motor or sensory deficit. LYMPHATICS: No lymph node palpable in neck, axillae or groin. SKIN: No ulcer, rash, bleeding. LABS: WBC 12.8, hemoglobin 13.2. ASSESSMENT: 1. Chest pain; possible unstable angina. 2. Increased white count. 3. History of coronary artery disease, stent. 4. Continued ongoing nicotine dependence. 5. History of congestive heart failure. 6. History of cerebrovascular accident, transient ischemic attack. 7. Hypertension. 8. Hyperlipidemia. 9. History of myocardial infarction. 10.History of pneumonia. 11.History of cardiac arrest. 12.History of degenerative joint disease. 13.History of peripheral neuropathy. 14.History of anxiety, depression. RECOMMENDATIONS AND DISCUSSION: In this 42-year-old woman who presented with multiple complex medical issues, we will monitor the patient closely, continue the current medications, continue with symptomatic treatment. Unstable angina protocol. IV heparin. Cardiology consultation. Resume the home medications. Symptomatic treatment. Smoking cessation. Guarded prognosis because of multiple complex medical issues. Further recommendations to follow. A copy of this dictation is being forwarded to Dr. Gant, who is the primary physician. See orders for further details. MMODL / IJN: [id number] / [facility]
[2018-08-10 21:48] LABS: Creatine Kinase <20 U/L (30-135)
[2018-08-10 22:02] LABS: Creatine Kinase MB <0.2 ng/mL (0.0-2.4); Troponin I <0.012 ng/mL (0.000-0.034)
[2018-08-10] MEDS ORDERED: NICOTINE 14MG/24HR PATCH TRANSDERM STA (23:59)
[2018-08-11] MEDS: HYDROcodone/APAP 10-325MG 1 EACH TAB PO PRN (03:20)
[2018-08-11] MEDS: HEPARIN SOD,PORK IN 0.45% NACL 25,000 UNIT in 0.45% NACL 1 250ML.BAG IV SCH (05:03)
[2018-08-11] MEDS ORDERED: PANTOPRAZOLE 40 MG TABLET PO SCH (07:30)
[2018-08-11] MEDS ORDERED: ASPIRIN 81 MG PO SCH (09:00)
[2018-08-11] MEDS ORDERED: NICOTINE 14MG/24HR PATCH TRANSDERM SCH (09:00)
[2018-08-11] MEDS ORDERED: ATORVASTATIN 80 MG TAB PO SCH ×2 (09:00)
[2018-08-11] MEDS ORDERED: ASPIRIN 325 MG TAB PO SCH (09:00)
[2018-08-11] MEDS ORDERED: amLODIPine 10 MG TAB PO SCH (09:00)
[2018-08-11] MEDS ORDERED: CLOPIDOGREL 75 MG TAB PO SCH (09:00)
[2018-08-11] MEDS ORDERED: FUROSEMIDE 20 MG TAB PO SCH (09:00)
[2018-08-11] MEDS ORDERED: METOPROLOL TARTRATE 25 MG TAB PO SCH (09:00)
[2018-08-11 10:38] LABS: Basophils % (A) 0 %; Eosinophils # (A) 0.2 k/uL (0-0.7); Eosinophils % (A) 2 %; HCT 40.6 % (34.0-46.0); Lymphocytes # (A) 2.5 k/uL (1.0-4.8); Lymphocytes % (A) 27 %; MCH 30.3 pg (25.0-35.0); MCHC 32.1 g/dL (31.0-37.0); MCV 94.5 fL (80.0-100.0); Mean Platelet Volume 7.1; Monocytes # (A) 0.6 k/uL (0-1.0); Monocytes % (A) 7 %; Neutrophils # (A) 5.7 k/uL (1.3-7.7); Neutrophils % (A) 62 %; Platelet Count 320 k/uL (150-450); RBC 4.29 m/uL (3.80-5.40); RDW 14.9 % (11.5-15.5); WBC 9.3 k/uL (3.8-10.6)
[2018-08-11] MEDS ORDERED: DOBUTamine DRIP for NUC MED 500 MG in DEXTROSE/WATER 1 250ML.BAG IV ONE (10:42)
--- NOTE | 2018-08-11 11:21 | P.PN ---
Subjective This is a pleasant 42-year-old female past medical history significant for inferior wall myocardial infarction in 2011 status post stenting of the circumflex artery, hypertension, dyslipidemia, history of ventricular tachycardia associated with her myocardial infarction in 2011, chronic nicotine dependence and morbid obesity with a BMI of 61. She follows with Dr. Barajas in the office. She is seen and examined resting comfortably in bed in no acute distress. She denies any further symptoms of chest discomfort since admission. Cardiac enzymes are negative x3. Lipid panel pending. Blood pressure 97/64 heart rate 83 afebrile and maintaining oxygen saturation on room air. GENERAL: This is a 42-year-old female in no apparent distress at the time of my examination. Morbidly obese. HEENT: Head is atraumatic, normocephalic. Pupils are equal, round. Sclerae anicteric. Conjunctivae are clear. Mucous membranes of the mouth are moist. Neck is supple. There is no jugular venous distention. No carotid bruit is heard. Xanthomas noted bilatereal eyelids. LUNGS: Clear to auscultation no wheezes, rales or rhonchi. No chest wall tenderness is noted on palpation or with deep breathing. HEART: Regular rate and rhythm with systolic ejection murmur at the left sternal border, no rubs or gallops. S1 and S2 heard. EXTREMITIES: Trace bilateral lower extremity edema and no calf tenderness noted. ASSESSMENT Chest pain suggestive of unstable angina with shortness of breath, nausea and vomiting. Pulmonary embolism has been ruled out with a normal d-dimer. History of coronary artery disease status post stenting of the circumflex artery 2010 Leukocytosis Hypertension Dyslipidemia Chronic nicotine dependence Morbid obesity PLAN An acute coronary event has been ruled out with no EKG evidence of ischemia and negative cardiac enzymes. Echo has been obtained and will be reviewed. Perform dobutamine stress echocardiogram to assess for stress induced ischemia. If stress test is normal she is stable from a cardiac perspective. Follow up with Dr. Barajas upon discharge. Nurse Practitioner note has been reviewed, I agree with a documented findings and plan of care. Patient was seen and examined. Objective - Vital Signs Vital signs: Vital Signs Temp 97.9 F 08/11/18 07:15 Pulse 83 08/11/18 08:00 Resp 18 08/11/18 08:00 BP 97/64 08/11/18 07:15 Pulse Ox 97 08/11/18 07:15 Intake & Output 08/10/18 08/11/18 08/11/18 18:59 06:59 18:59 Intake Total 520 156.351 Balance 520 156.351 Weight 148.1 kg Intake: Intake, IV Titration 76 156.351 Amount Heparin Sod,Pork in 0.45% 76 156.351 NaCl 25,000 unit In 0.45 % NaCl 1 250ml.bag @ 7.35 UNITS/KG/HR 10 mls/hr IV .Q24H [facility] Rx#:[id number] Oral 444 Other: Voiding Method Toilet Toilet Toilet # Voids 1 - Labs CBC & Chem 7: 08/11/18 10:03 08/10/18 08:35 Labs: Abnormal Lab Results - Last 24 Hours (Table) 08/10/18 08/10/18 08/11/18 Range/Units 15:52 21:21 00:42 APTT 36.7 H (22.0-30.0) sec Total Creatine Kinase <20 L <20 L (30-135) U/L 08/11/18 Range/Units 10:03 APTT 42.9 H (22.0-30.0) sec Total Creatine Kinase (30-135) U/L
[2018-08-11 11:42] VITALS: BP 129/78; PULSE 86; TEMP 98
[2018-08-11 11:48] LABS: Anion Gap 5 mmol/L; Blood Urea Nitrogen 12 mg/dL (7-17); Calcium 8.8 mg/dL (8.4-10.2); Carbon Dioxide 23 mmol/L (22-30); Chloride 109 mmol/L (98-107); Cholesterol 152 mg/dL (<200); Glucose 91 mg/dL (74-99); HDL Cholesterol 38 mg/dL (40-60); LDL Cholesterol,Calculated 85 mg/dL (0-99); Potassium 4.8 mmol/L (3.5-5.1); Sodium 137 mmol/L (137-145); Triglycerides 144 mg/dL (<150)
[2018-08-11] MEDS ORDERED: ONDANSETRON 4 MG/2 ML VIAL ONE (12:26)
[2018-08-11] MEDS: LISINOPRIL 20 MG TAB PO SCH (12:55)
[2018-08-11] MEDS: SODIUM CHLORIDE 0.9% 1,000 ML IV SCH (12:59)
--- NOTE | 2018-08-11 13:09 | ECHOF ---
Referral Reason:Chest pain MEASUREMENTS -------- HEIGHT: 154.9 cm WEIGHT: 147.9 kg BP: 134/84 RVIDd: 2.7 cm (< 3.3) IVSd: 1.3 cm (0.6 - 1.1) LVIDd: 4.4 cm (3.9 - 5.3) LVPWd: 1.3 cm (0.6 - 1.1) IVSs: 1.8 cm LVIDs: 2.9 cm LVPWs: 1.7 cm LAESV Index (A-L): 14.50 ml/m Ao Diam: 2.9 cm (2.0 - 3.7) AV Cusp: 1.6 cm (1.5 - 2.6) LA Diam: 2.6 cm (2.7 - 3.8) MV E Gerry: 1.07 m/s MV DecT: 233 ms MV A Gerry: 1.03 m/s MV E/A Ratio: 1.03 RAP: 5.00 mmHg RVSP: 10.33 mmHg FINDINGS -------- Sinus rhythm. This was a technically difficult study with suboptimal views. The left ventricular size is normal. There is mild concentric left ventricular hypertrophy. Overa ll left ventricular systolic function is normal with, an EF between 55 - 60 %. The right ventricle is normal in size and function. Normal LA size by volume 22+/-6 ml/m2. The right atrium is normal in size. 3 ml of Lumason was utilized for enhancement of images. There is mild aortic valve sclerosis. There is no evidence of aortic regurgitation. There is no e vidence of aortic stenosis. The mitral valve leaflets are mildly thickened. There is trace to mild mitral regurgitation. Trace tricuspid regurgitation present. Right ventricular systolic pressure is normal at < 35 mmHg. There is no evidence of pulmonary hypertension. The pulmonic valve was not well visualized. The aortic root size is normal. Normal inferior vena cava with normal inspiratory collapse consistent with estimated right atrial pre ssure of 5 mmHg. There is no pericardial effusion. CONCLUSIONS -------- 1. Sinus rhythm. 2. This was a technically difficult study with suboptimal views. 3. The left ventricular size is normal. 4. There is mild concentric left ventricular hypertrophy. 5. Overall left ventricular systolic function is normal with, an EF between 55 - 60 %. 6. Normal LA size by volume 22+/-6 ml/m2. 7. 3 ml of Lumason was utilized for enhancement of images. 8. There is mild aortic valve sclerosis. 9. The mitral valve leaflets are mildly thickened. 10. There is trace to mild mitral regurgitation. 11. Trace tricuspid regurgitation present. 12. Right ventricular systolic pressure is normal at < 35 mmHg. 13. There is no evidence of pulmonary hypertension. 14. The pulmonic valve was not well visualized. 15. The aortic root size is normal. 16. There is no pericardial effusion. MATERIALS PLANNING ANALYST: Kt Dove RDCS
--- NOTE | 2018-08-12 07:28 | DS ---
DISCHARGE SUMMARY FINAL DIAGNOSES: 1. Chest pain, possibly musculoskeletal, negative stress test. 2. Increased WBC, improved. 3. History of coronary artery disease, stent. 4. Continued ongoing nicotine dependence. 5. History of congestive heart failure. 6. History of cerebrovascular accident, transient ischemic attack. 7. Hypertension. 8. Hyperlipidemia. 9. History of myocardial infarction. 10.History of pneumonia. 11.History of cardiac arrest. 12.History of degenerative joint disease. 13.History of peripheral neuropathy. 14.History of anxiety, depression. DISCHARGE DISPOSITION: The patient will be discharged in stable condition with guarded prognosis. Cardiology cleared the patient for discharge. HISTORY OF PRESENT ILLNESS: This is a 42-year-old woman with a past medical history of multiple medical problems was admitted with chest pain, myocardial infarction ruled out. Cardiology performed a stress test. Per staff report the patient is cleared for discharged with Cardiology and patient has been cleared. A full report is not available at this time. On exam, vitals are stable. CARDIOVASCULAR: S1, S2. ABDOMEN: Soft. NERVOUS SYSTEM: No focal deficits. Discharge diet is cardiac. Activity limited until followup. Follow up with Dr. Gant in 2-3 days. Follow up with cardiology has recommended. No smoking. MEDICATIONS ARE: 1. Norvasc 5 mg. 2. Aspirin 81 mg daily. 3. Lipitor 80 mg daily. 4. Plavix 75 mg daily. 5. Lasix 20 mg daily. 6. Gabapentin 800 mg q.h.s. 7. Hydrocodone 1 tablet t.i.d. p.r.n. 8. Lisinopril 20 mg p.o. b.i.d. 9. Ativan 0.5 mg daily p.r.n. 10.Bonine 25 mg t.i.d. p.r.n. 11.Lopressor 25 mg p.o. daily. 12.Singular 10 mg q.h.s. 13.Zantac 150 mg p.o. b.i.d. 14.Habitrol 14 daily. 15.Nitrostat 0.4 sublingual p.r.n. Once again, the patient will be discharged in a stable condition with guarded prognosis. MMODL / IJN: [id number] /
--- NOTE | 2018-08-13 11:59 | ECHOS ---
STRESS ECHOCARDIOGRAM DATE OF SERVICE: 08/11/2018 INDICATIONS: Chest pain. MEDICATIONS: BASELINE HEART RATE: 86 BASELINE BLOOD PRESSURE: 124/59 MAXIMUM HEART RATE: 145 MAXIMUM BLOOD PRESSURE: 161/55 85% MPHR: 150 100% MPHR: 177 METS: MAXIMUM STAGE REACHED: TOTAL EXERCISE TIME: CLINICAL INFORMATION: The patient was given dobutamine infusion according to the standard protocol. Peak heart rate of 145 was achieved. Maximum blood pressure of 161/55 mmHg was noted. Resting EKG shows normal sinus rhythm with normal NJ interval and QRS duration and normal ST-T waves. No ST-segment depression suggestive of ischemia is noted. The baseline echocardiographic images reveals normal left ventricular chamber size with normal left ventricular systolic function. At the peak dose of dobutamine infusion, normal increase in the wall thickness and contractility is noted. FINAL IMPRESSION: 1. This dobutamine stress echocardiographic study is negative for stress-induced ischemia. 2. No dysrhythmias were noted. 3. EKG portion of the stress test is not suggestive of ischemia. MMODL / IJN: [id number] /
== END 2018-08-11 13:35 | disposition home or self-care (01) ==
LOC: EC 07:49 → 1SOBS 10:50
PROVIDERS: ADMIT Hospitalist; ATTEND Hospitalist
DX: R07.89 Other chest pain (principal); D72.829 Elevated white blood cell count, unspecified; R06.02 Shortness of breath; R68.83 Chills (without fever); R61 Generalized hyperhidrosis; R11.2 Nausea with vomiting, unspecified; I25.10 Atherosclerotic heart disease of native coronary artery without angina pectoris; I11.0 Hypertensive heart disease with heart failure; I50.9 Heart failure, unspecified; E78.5 Hyperlipidemia, unspecified; I34.0 Nonrheumatic mitral (valve) insufficiency; F41.9 Anxiety disorder, unspecified; F32.9 Major depressive disorder, single episode, unspecified; F17.200 Nicotine dependence, unspecified, uncomplicated; E66.01 Morbid (severe) obesity due to excess calories; Z68.44 Body mass index [BMI] 60.0-69.9, adult; G89.29 Other chronic pain; M54.5 Low back pain; M19.90 Unspecified osteoarthritis, unspecified site; G62.9 Polyneuropathy, unspecified; Z79.82 Long term (current) use of aspirin; Z79.02 Long term (current) use of antithrombotics/antiplatelets; Z79.899 Other long term (current) drug therapy; I25.2 Old myocardial infarction; Z87.01 Personal history of pneumonia (recurrent); Z95.5 Presence of coronary angioplasty implant and graft; Z90.49 Acquired absence of other specified parts of digestive tract; Z86.79 Personal history of other diseases of the circulatory system; Z86.73 Personal history of transient ischemic attack (TIA), and cerebral infarction without residual deficits; Z86.74 Personal history of sudden cardiac arrest; Z83.3 Family history of diabetes mellitus; Z82.49 Family history of ischemic heart disease and other diseases of the circulatory system; Z83.2 Family history of diseases of the blood and blood-forming organs and certain disorders involving the immune mechanism; Z83.49 Family history of other endocrine, nutritional and metabolic diseases; Z83.79 Family history of other diseases of the digestive system
CPT/HCPCS: 96366; 96376 ×2; 96361; 96365; 96375; 99291; 36415; 93005; 85379; 83880; 80061; 80053; 80048; 82550; 82553; 83690; 83735; 84484; 85025 ×2; 85610; 85730 ×2; 71046; G0378 ×2; C8929; C8930; S4990; J1250; J2270; J1644 ×3; Q9950; 29505; 93306; 93351

== ENCOUNTER 2018-10-03 13:34 | Emergency (ER) | payer MEDICARE, OTHER ==
[2018-10-03] MEDS ORDERED: DIPHENOX-ATROP 2.5-0.025 MG 1 EACH TAB PO STA (15:25)
[2018-10-03] MEDS ORDERED: SODIUM CHLORIDE 0.9% 1,000 ML IV STA (15:25)
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
[2018-10-03 16:20] LABS: Basophils % (A) 0 %; Eosinophils # (A) 0.1 k/uL (0-0.7); Eosinophils % (A) 1 %; HCT 42.5 % (34.0-46.0); HGB 13.8 gm/dL (11.4-16.0); Lymphocytes # (A) 1.4 k/uL (1.0-4.8); Lymphocytes % (A) 12 %; MCH 29.9 pg (25.0-35.0); MCHC 32.4 g/dL (31.0-37.0); MCV 92.3 fL (80.0-100.0); Mean Platelet Volume 7.2; Monocytes # (A) 0.7 k/uL (0-1.0); Monocytes % (A) 6 %; Neutrophils # (A) 9.6 k/uL (1.3-7.7); Neutrophils % (A) 80 %; Platelet Count 362 k/uL (150-450); RBC 4.61 m/uL (3.80-5.40)
[2018-10-03 16:30] LABS: ALT 45 U/L (9-52); AST 26 U/L (14-36); Albumin 3.7 g/dL (3.5-5.0); Alkaline Phosphatase 134 U/L (38-126); Amylase <30 U/L (30-110); Anion Gap 7 mmol/L; Blood Urea Nitrogen 9 mg/dL (7-17); Calcium 8.9 mg/dL (8.4-10.2); Carbon Dioxide 22 mmol/L (22-30); Chloride 111 mmol/L (98-107); Glucose 95 mg/dL (74-99); Lipase 20 U/L (23-300); Potassium 3.9 mmol/L (3.5-5.1); Sodium 140 mmol/L (137-145); Total Bilirubin 0.6 mg/dL (0.2-1.3)
[2018-10-03 18:28] VITALS: BP 107/75; PULSE 82; RESP 18; TEMP 97.7
== END 2018-10-03 18:20 | disposition home or self-care (01) ==
LOC: EC 13:34
DX: R19.7 Diarrhea, unspecified (principal); R11.10 Vomiting, unspecified; E78.5 Hyperlipidemia, unspecified; I11.0 Hypertensive heart disease with heart failure; I50.9 Heart failure, unspecified; I25.119 Atherosclerotic heart disease of native coronary artery with unspecified angina pectoris; I25.2 Old myocardial infarction; G62.9 Polyneuropathy, unspecified; G89.29 Other chronic pain; F41.9 Anxiety disorder, unspecified; F17.200 Nicotine dependence, unspecified, uncomplicated; Z79.02 Long term (current) use of antithrombotics/antiplatelets; Z79.82 Long term (current) use of aspirin; Z79.899 Other long term (current) drug therapy; Z86.73 Personal history of transient ischemic attack (TIA), and cerebral infarction without residual deficits; Z87.01 Personal history of pneumonia (recurrent); Z90.49 Acquired absence of other specified parts of digestive tract; Z90.710 Acquired absence of both cervix and uterus; Z95.818 Presence of other cardiac implants and grafts; Z83.79 Family history of other diseases of the digestive system
CPT/HCPCS: 36415; 80053; 82150; 83690; 85025; 87045; 87046; 87324; 96360; 96361; 99284

== ENCOUNTER 2018-11-29 18:21 | Emergency (ER) | payer MEDICARE, OTHER ==
[2018-11-29 18:47] VITALS: RESP 18
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
[2018-11-29 19:55] LABS: Appearance,Urine Cloudy (Clear); Bilirubin,Urine Negative (Negative); Blood,Urine Small (Negative); Color,Urine Yellow; Glucose,Urine (UA) Negative (Negative); Granular Casts,Urine 22 /lpf (0); Ketones,Urine Negative (Negative); Leukocyte Esterase,Urine Large (Negative); Mucus,Urine Rare /hpf; Nitrite,Urine Positive (Negative); Protein,Urine 1+ (Negative); RBC,Urine 19 /hpf (0-5); Squamous Epithelial Cell,Urine 7 /hpf (0-4); Urobilinogen,Urine <2.0 mg/dL (<2.0)
[2018-11-29] MEDS ORDERED: PHENAZOPYRIDINE 100 MG TAB PO STA (20:00)
[2018-11-29] MEDS ORDERED: NITROFURANTOIN MONOHYD/M-CRYST 100 MG CAP PO STA (20:00)
[2018-11-29 20:29] VITALS: BP 128/60; PULSE 76; TEMP 97.2
== END 2018-11-29 20:28 | disposition home or self-care (01) ==
LOC: EC 18:21
DX: N39.0 Urinary tract infection, site not specified (principal); I25.10 Atherosclerotic heart disease of native coronary artery without angina pectoris; I25.2 Old myocardial infarction; I11.0 Hypertensive heart disease with heart failure; I50.9 Heart failure, unspecified; E78.5 Hyperlipidemia, unspecified; F17.200 Nicotine dependence, unspecified, uncomplicated; Z86.73 Personal history of transient ischemic attack (TIA), and cerebral infarction without residual deficits; Z95.5 Presence of coronary angioplasty implant and graft; Z79.02 Long term (current) use of antithrombotics/antiplatelets; Z79.82 Long term (current) use of aspirin; Z79.899 Other long term (current) drug therapy
CPT/HCPCS: 81001; 87086; 99284

== ENCOUNTER → 2020-05-04 | Outpatient (CLI) | payer MEDICARE ==
[2020-05-04 21:08] LABS: ALT 35 U/L (8-44); AST 24 U/L (13-35); African American GFR (CKD) 121.3 (60.0-200.0); Albumin/Globulin Ratio 1.46 (1.60-3.17); Alkaline Phosphatase 132 U/L (41-126); BUN/Creat Ratio 15.71 Ratio (12.00-20.00); Bilirubin, Conjugated <0.20 mg/dL (0.20-0.40); Calcium 8.9 mg/dL (8.7-10.3); Carbon Dioxide 26.3 mmol/L (21.6-31.8); Chloride 103 mmol/L (96-109); Chol/HDL Ratio 4.09; Cholesterol 135 mg/dL (0-200); Globulin 2.6 g/dL (1.6-3.3); Glucose 93 mg/dL (70-110); LDL Cholesterol,Calculated 81.6 mg/dL (0.0-131.0); Non-African American GFR(CKD) 104.6 (60.0-200.0); Potassium 4.6 mmol/L (3.5-5.5); Sodium 135 mmol/L (135-145); Total Bilirubin 0.3 mg/dL (0.3-1.2); Total Protein 6.4 g/dL (6.2-8.2)
== END | disposition home or self-care (01) ==
LOC: LABWHC1 13:26
PROVIDERS: ATTEND Internal Medicine Cardiovascular Disease
DX: I25.10 Atherosclerotic heart disease of native coronary artery without angina pectoris (principal); E78.5 Hyperlipidemia, unspecified; I25.9 Chronic ischemic heart disease, unspecified
CPT/HCPCS: 36415; 80053; 80061; 82248

== ENCOUNTER 2021-07-15 12:50 | Emergency (ER) | payer MEDICARE ==
--- NOTE | 2021-07-15 17:32 | XR ---
EXAMINATION TYPE: XR knee complete LT DATE OF EXAM: 07/15/2021 COMPARISON: NONE HISTORY: Pain TECHNIQUE: 3 views FINDINGS: There is some spurring of the medial femoral and tibial condyles. I see no fracture nor dis location. There is mild narrowing of the medial joint space. The patella is intact. There is slight n arrowing of the patellofemoral joint space. There is no sign of a joint effusion. IMPRESSION: Osteoarthritis. No fracture.
[2021-07-15] MEDS ORDERED: KETOROLAC 30 MG/ML 1 ML VIAL IM STA (18:51)
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
[2021-07-15 19:08] VITALS: BP 136/78; PULSE 78; RESP 16; TEMP 98.3
== END 2021-07-15 19:16 | disposition home or self-care (01) ==
LOC: EC 12:50
DX: M17.12 Unilateral primary osteoarthritis, left knee (principal); I11.0 Hypertensive heart disease with heart failure; I50.9 Heart failure, unspecified; E66.01 Morbid (severe) obesity due to excess calories; F17.200 Nicotine dependence, unspecified, uncomplicated; E78.5 Hyperlipidemia, unspecified; I25.10 Atherosclerotic heart disease of native coronary artery without angina pectoris; M16.12 Unilateral primary osteoarthritis, left hip; Z68.44 Body mass index [BMI] 60.0-69.9, adult; Z86.73 Personal history of transient ischemic attack (TIA), and cerebral infarction without residual deficits; Z79.82 Long term (current) use of aspirin; Z79.899 Other long term (current) drug therapy; Z79.01 Long term (current) use of anticoagulants
CPT/HCPCS: 73562; 99283; 96372; J1885; 96374

== ENCOUNTER 2022-12-17 20:05 | Emergency (ER) | payer MEDICARE, BC ==
[2022-12-17 21:10] VITALS: TEMP 98.5
[2022-12-17] MEDS ORDERED: SODIUM CHLORIDE 0.9% 500 ML 500 ML IV STA (22:10)
[2022-12-17] MEDS ORDERED: ONDANSETRON 4 MG/2 ML VIAL IVP STA (22:10)
[2022-12-17] MEDS ORDERED: KETOROLAC 15 MG/ML 1 ML VIAL IVP STA (22:10)
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
[2022-12-17 22:40] LABS: Basophils % (A) 0 %; Eosinophils # (A) 0.2 k/uL (0-0.7); Eosinophils % (A) 2 %; HCT 41.3 % (34.0-46.0); HGB 13.5 gm/dL (11.4-16.0); Lymphocytes # (A) 2.2 k/uL (1.0-4.8); Lymphocytes % (A) 21 %; MCH 31.7 pg (25.0-35.0); MCHC 32.8 g/dL (31.0-37.0); MCV 96.7 fL (80.0-100.0); Mean Platelet Volume 7.8; Monocytes # (A) 0.9 k/uL (0-1.0); Monocytes % (A) 8 %; Neutrophils # (A) 6.9 k/uL (1.3-7.7); Neutrophils % (A) 67 %; Platelet Count 370 k/uL (150-450); RBC 4.27 m/uL (3.80-5.40); RDW 14.6 % (11.5-15.5); WBC 10.3 k/uL (3.8-10.6)
--- NOTE | 2022-12-17 22:45 | CT ---
EXAM: CT Abdomen and Pelvis Without Intravenous Contrast CLINICAL HISTORY: ITS.REASON CT Reason: abdominal pain TECHNIQUE: Axial computed tomography images of the abdomen and pelvis without intravenous contrast. CTDI is 36.4 mGy and DLP is 2084.2 mGy-cm. This CT exam was performed using one or more of the following dose reduction techniques: automated exposure control, adjustment of the mA and/or kV according to patient size, and/or use of iterative reconstruction technique. COMPARISON: No relevant prior studies available. FINDINGS: Lung bases: Unremarkable. No mass. No consolidation. ABDOMEN: Liver: Unremarkable. Gallbladder and bile ducts: Cholecystectomy. No ductal dilation. Pancreas: Unremarkable. No ductal dilation. Spleen: Unremarkable. No splenomegaly. Adrenals: Unremarkable. No mass. Kidneys and ureters: Unremarkable. No hydronephrosis or nephrolithiasis. Stomach and bowel: Diverticulosis, without acute diverticulitis. No small bowel obstruction. No free intraperitoneal air. PELVIS: Appendix: Normal appendix. Bladder: Decompressed urinary bladder. No stones. Reproductive: Unremarkable as visualized. ABDOMEN and PELVIS: Intraperitoneal space: Unremarkable. No free air. No significant fluid collection. Bones/joints: Degenerative changes of the spine. No acute fracture. No dislocation. Soft tissues: Unremarkable. Vasculature: Atherosclerotic changes of the aorta. No abdominal aortic aneurysm. Lymph nodes: Unremarkable. No enlarged lymph nodes. IMPRESSION: 1. No hydronephrosis or nephrolithiasis. 2. Normal appendix. 3. Diverticulosis, without acute diverticulitis. No small bowel obstruction. No free intraperitoneal air. 4. Cholecystectomy.
[2022-12-17 22:50] LABS: ALT 31 U/L (4-34); AST 32 U/L (14-36); African American GFR (CKD) >90 (>60 ml/min/1.73 sqM); Albumin 3.6 g/dL (3.5-5.0); Alkaline Phosphatase 98 U/L (38-126); Amylase 37 U/L (30-110); Anion Gap 8 mmol/L; Blood Urea Nitrogen 13 mg/dL (7-17); Calcium 8.4 mg/dL (8.4-10.2); Carbon Dioxide 27 mmol/L (22-30); Chloride 104 mmol/L (98-107); Glucose 108 mg/dL (74-99); Lipase 41 U/L (23-300); Non-African American GFR(CKD) >90 (>60 ml/min/1.73 sqM); Potassium 3.9 mmol/L (3.5-5.1); Sodium 139 mmol/L (137-145); Total Bilirubin 0.3 mg/dL (0.2-1.3); Total Protein 7.5 g/dL (6.3-8.2)
[2022-12-17 23:35] VITALS: BP 95/59; PULSE 81; RESP 18
== END 2022-12-17 23:35 | disposition home or self-care (01) ==
LOC: EC 20:05
DX: R10.32 Left lower quadrant pain (principal); E78.5 Hyperlipidemia, unspecified; F41.9 Anxiety disorder, unspecified; I11.0 Hypertensive heart disease with heart failure; I25.10 Atherosclerotic heart disease of native coronary artery without angina pectoris; I25.2 Old myocardial infarction; I50.9 Heart failure, unspecified; F17.200 Nicotine dependence, unspecified, uncomplicated; Z79.1 Long term (current) use of non-steroidal anti-inflammatories (NSAID); Z79.82 Long term (current) use of aspirin; Z79.899 Other long term (current) drug therapy; Z90.49 Acquired absence of other specified parts of digestive tract
CPT/HCPCS: 36415; 80053; 82150; 83690; 85025; 74176; 99284; 96374; 96375; 96361; J2405; J1885

== ENCOUNTER → 2023-02-05 | Outpatient (CLI) | payer MEDICARE, BC ==
--- NOTE | 2023-02-05 12:22 | XR ---
EXAMINATION TYPE: XR lumbosacral spine min 4V DATE OF EXAM: 02/05/2023 12:17 PM INDICATION: Patient age:Female; 47 years old; Reason for study: LOW BACK PAIN; [facility]. COMPARISON: Complete spine radiograph 08/21/2014, lumbosacral spine radiograph 03/22/2013, CT abdomen pelvis 12/17/2022 TECHNIQUE: Frontal, lateral , bilateral oblique and coned in L5-S1 lateral views of the spine. FINDINGS: There are 5 lumbar type vertebral bodies identified. No evidence of any acute osseous patho logy. No evidence of loss of vertebral body height is seen. There is normal alignment of the lumbar vertebral bodies. Mild multilevel displacement with endplate process anterior ossified ptosis. Lower lumbar spine facet arthropathy. Atherosclerotic calcification of the aorta. IMPRESSION: 1. No acute process. 2. Mild degenerative disc disease.
== END | disposition home or self-care (01) ==
LOC: RADXRMAIN 11:49
PROVIDERS: ATTEND Physical Medicine & Rehabilitation
DX: M51.37 Other intervertebral disc degeneration, lumbosacral region (principal)
CPT/HCPCS: 72110

== ENCOUNTER 2023-02-20 10:39 | Observation (INO) | payer BC, MEDICARE ==
[2023-02-20] MEDS ORDERED: SODIUM CHLORIDE 0.9% 500 ML 500 ML IV ONE (11:18)
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
[2023-02-20 11:44] LABS: Basophils % (A) 0 %; Eosinophils # (A) 0.1 k/uL (0-0.7); Eosinophils % (A) 1 %; HCT 45.2 % (34.0-46.0); HGB 14.9 gm/dL (11.4-16.0); Lymphocytes # (A) 0.9 k/uL (1.0-4.8); Lymphocytes % (A) 7 %; MCH 32.7 pg (25.0-35.0); MCHC 32.8 g/dL (31.0-37.0); MCV 99.5 fL (80.0-100.0); Mean Platelet Volume 8.2; Monocytes # (A) 0.5 k/uL (0-1.0); Monocytes % (A) 4 %; Neutrophils # (A) 10.3 k/uL (1.3-7.7); Neutrophils % (A) 87 %; Platelet Count 332 k/uL (150-450); RBC 4.54 m/uL (3.80-5.40); WBC 11.9 k/uL (3.8-10.6)
--- NOTE | 2023-02-20 11:52 | XR ---
EXAMINATION TYPE: XR chest 2V DATE OF EXAM: 02/20/2023 COMPARISON: 08/10/2018 INDICATION: Altered mental status, dizziness TECHNIQUE: Chest and abdomen in the frontal and lateral projections. FINDINGS: The heart size is normal. The pulmonary vasculature is normal. The lungs are clear. IMPRESSION: 1. No acute pulmonary process.
--- NOTE | 2023-02-20 11:54 | CT ---
EXAMINATION TYPE: CT brain wo con DATE OF EXAM: 02/20/2023 COMPARISON: None INDICATION: Altered mental status DLP: 1099.4 mGycm, Automated exposure control for dose reduction was used. CONTRAST: None CT of the brain is performed utilizing 3 mm thick sections through the posterior fossa and 3 mm thick sections through the remaining calvarium. Study is performed within 24 hours of arrival to the hosp ital. No abnormal hyperdensity is present to suggest an acute intracranial hemorrhage. No mass lesion is evident. No acute infarcts are evident. Ventricles and sulci are appropriate for the patient age. Paranasal sinuses and mastoid air cells within the [id number] are clear. IMPRESSIONS: 1. No acute intracranial process. Follow-up MRI can be performed as clinically indicated.
[2023-02-20 11:55] LABS: ALT 36 U/L (4-34); AST 31 U/L (14-36); African American GFR (CKD) >90 (>60 ml/min/1.73 sqM); Albumin 3.9 g/dL (3.5-5.0); Alcohol <10 mg/dL; Alkaline Phosphatase 143 U/L (38-126); Anion Gap 9 mmol/L; Blood Urea Nitrogen 10 mg/dL (7-17); Calcium 8.6 mg/dL (8.4-10.2); Carbon Dioxide 25 mmol/L (22-30); Chloride 106 mmol/L (98-107); Glucose 149 mg/dL (74-99); Non-African American GFR(CKD) >90 (>60 ml/min/1.73 sqM); Potassium 3.6 mmol/L (3.5-5.1); Sodium 140 mmol/L (137-145); Total Bilirubin 0.4 mg/dL (0.2-1.3)
[2023-02-20 12:08] LABS: INR 0.9 (<1.2); Prothrombin Time 9.8 sec (9.0-12.0)
[2023-02-20 12:19] LABS: Partial Thromboplastin Time 21.5 sec (22.0-30.0)
[2023-02-20 12:42] VITALS: RESP 17
[2023-02-20 13:06] LABS: Amphetamine Screen,Urine Not Detected (NotDetected); Barbiturate Screen,Urine Not Detected (NotDetected); Benzodiazepines Screen,Urine Not Detected (NotDetected); Cocaine Screen,Urine Not Detected (NotDetected); Methadone Screen, Urine Not Detected (NotDetected); Opiate Screen,Urine Detected (NotDetected); Oxycodone Screen, Urine Detected (NotDetected); Phencyclidine Screen,Urine Not Detected (NotDetected); Tricyclic Antidepressant,Urine Detected (NotDetected); Urn Cannabinoid Scrn Not Detected (NotDetected)
[2023-02-20 13:26] LABS: Appearance,Urine Cloudy (Clear); Bilirubin,Urine Negative (Negative); Blood,Urine Negative (Negative); Color,Urine Yellow; Glucose,Urine (UA) Negative (Negative); Ketones,Urine Trace (Negative); Leukocyte Esterase,Urine Negative (Negative); Mucus,Urine Many /hpf; Nitrite,Urine Negative (Negative); PH, Urine 5.5 (5.0-8.0); Protein,Urine 1+ (Negative); RBC,Urine 1 /hpf (0-5); Specific Gravity,Urine 1.026 (1.001-1.035); Squamous Epithelial Cell,Urine 7 /hpf (0-4); WBC,Urine 8 /hpf (0-5)
[2023-02-20 15:47] VITALS: BP 119/68; PULSE 87; TEMP 98.2
--- NOTE | 2023-02-20 16:16 | P.DS ---
Providers Date of admission: 02/20/23 14:42 Attending physician: Alfie Daniel Consults: 02/20/23 14:35 Consult Physician Urgent Consulting Provider: Yee Blanchard Reason/Comments: Altered mental status Do you want consulting provider notified?: Yes Primary care physician: Stated None Hospital Course: Left AGAINST MEDICAL ADVICE Plan - Discharge Summary New Discharge Prescriptions: No Action Atorvastatin [Lipitor] 80 mg PO DAILY Clopidogrel Bisulfate [Plavix] 75 mg PO DAILY Aspirin 81 mg PO DAILY Nitroglycerin Sl Tabs [Nitrostat] 0.4 mg SUBLINGUAL Q5M PRN #0 tab PRN Reason: Chest Pain lisinopriL [Prinivil] 20 mg PO DAILY Gabapentin 800 mg PO TID amLODIPine [Norvasc] 5 mg PO DAILY LORazepam [Ativan] 0.5 mg PO DAILY PRN PRN Reason: Anxiety HYDROcodone/APAP 10-325MG [[place] 10-325] 1 tab PO TID PRN PRN Reason: Pain Ranitidine HCl [Zantac] 150 mg PO BID Montelukast Sodium [Singulair] 10 mg PO HS Metoprolol Tartrate [Lopressor] 25 mg PO DAILY Furosemide [Lasix] 20 mg PO DAILY Diphenox-Atrop 2.5-0.025 mg [Lomotil] 2 tab PO QID PRN 3 Days #24 tab PRN Reason: Diarrhea Nitrofurantoin Monohyd/M-Cryst [Macrobid] 100 mg PO Q12HR #14 cap Phenazopyridine [Pyridium] 100 mg PO TID #9 tablet Ibuprofen [Motrin] 600 mg PO Q8HR PRN #30 tab PRN Reason: Pain Discharge Medication List Atorvastatin [Lipitor] 80 mg PO DAILY 07/14/14 [History] Clopidogrel Bisulfate [Plavix] 75 mg PO DAILY 07/14/14 [History] Aspirin 81 mg PO DAILY 11/14/14 [History] Nitroglycerin Sl Tabs [Nitrostat] 0.4 mg SUBLINGUAL Q5M PRN #0 tab 11/16/14 [Rx] lisinopriL [Prinivil] 20 mg PO DAILY 12/17/15 [History] Gabapentin 800 mg PO TID 08/31/16 [History] LORazepam [Ativan] 0.5 mg PO DAILY PRN 12/02/16 [History] amLODIPine [Norvasc] 5 mg PO DAILY 12/02/16 [History] HYDROcodone/APAP 10-325MG [[place] 10-325] 1 tab PO TID PRN 08/27/17 [History] Furosemide [Lasix] 20 mg PO DAILY 08/10/18 [History] Metoprolol Tartrate [Lopressor] 25 mg PO DAILY 08/10/18 [History] Montelukast Sodium [Singulair] 10 mg PO HS 08/10/18 [History] Ranitidine HCl [Zantac] 150 mg PO BID 08/10/18 [History] Diphenox-Atrop 2.5-0.025 mg [Lomotil] 2 tab PO QID PRN 3 Days #24 tab 10/03/18 [Rx] Nitrofurantoin Monohyd/M-Cryst [Macrobid] 100 mg PO Q12HR #14 cap 11/29/18 [Rx] Phenazopyridine [Pyridium] 100 mg PO TID #9 tablet 11/29/18 [Rx] Ibuprofen [Motrin] 600 mg PO Q8HR PRN #30 tab 07/15/21 [Rx] Follow up Appointment(s)/Referral(s): None,Stated [Primary Care Provider] - 1-2 days Discharge Disposition: LEFT AGAINST MEDICAL ADVICE
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
== END 2023-02-20 16:14 | disposition left against medical advice (07) ==
LOC: EC 10:39 → 6NMEDSUR 14:42
PROVIDERS: ADMIT Internal Medicine; ATTEND Internal Medicine
DX: R41.82 Altered mental status, unspecified (principal); R07.89 Other chest pain; I25.10 Atherosclerotic heart disease of native coronary artery without angina pectoris; I11.0 Hypertensive heart disease with heart failure; I50.9 Heart failure, unspecified; E78.5 Hyperlipidemia, unspecified; K57.90 Diverticulosis of intestine, part unspecified, without perforation or abscess without bleeding; G62.9 Polyneuropathy, unspecified; F17.200 Nicotine dependence, unspecified, uncomplicated; F32.A Depression, unspecified; F41.9 Anxiety disorder, unspecified; I25.2 Old myocardial infarction; G89.29 Other chronic pain; M54.50 Low back pain, unspecified; Z53.21 Procedure and treatment not carried out due to patient leaving prior to being seen by health care provider; Z79.02 Long term (current) use of antithrombotics/antiplatelets; Z79.82 Long term (current) use of aspirin; Z79.899 Other long term (current) drug therapy; Z86.73 Personal history of transient ischemic attack (TIA), and cerebral infarction without residual deficits; Z87.01 Personal history of pneumonia (recurrent); Z86.74 Personal history of sudden cardiac arrest; Z90.49 Acquired absence of other specified parts of digestive tract; Z95.5 Presence of coronary angioplasty implant and graft; Z98.891 History of uterine scar from previous surgery; Z87.81 Personal history of (healed) traumatic fracture; Z98.890 Other specified postprocedural states; Z83.3 Family history of diabetes mellitus; Z82.49 Family history of ischemic heart disease and other diseases of the circulatory system; Z83.79 Family history of other diseases of the digestive system
CPT/HCPCS: 36415; 70450; 71046; 80053; 80306; 80320; 81001; 84484; 85025; 85610; 85730; 93005; 99285

== ENCOUNTER → 2023-03-19 | Outpatient (CLI) | payer BC, MEDICARE ==
[~2023-03-19] MED LIST changes: -LACTATED RINGERS 1,000 ML IV SCH; +REGADENOSON 0.4 MG/5 ML SYRINGE IV ONE
--- NOTE | 2023-03-19 13:27 | CA ---
Lexiscan Nuclear Stress Test Report Name: Kacy Danielson Exam Date: 03/19/2023 10:11 Exam Location: [facility] Stress Ht (in): 61 Wt (lb): 300 BSA: 2.24 Ordering Phys: Delores Nunez MD Referring Phys: LIZETT,, Technologist: MIMI,, Age: 47 Gender: F : 1975 Procedure CPT: Indications: R55, R07.9 ICD-10 Codes: Patient History: Syncope, Chest pain shortness of breath and palpitations Medications: Meds past 24 hrs: Pretest Chest Pain: STRESS TEST Lexiscan Protocol Exercise Duration (min:sec): 01:[address] Depressions (mm): Angina Score: Jimenez Score: Resting HR (bpm): 67 Peak HR (bpm): 86 Resting BP (mmHg): 120 / 72 Peak BP (mmHg): 134 / 53 MPHR: 172 Target HR: 146 % MPHR: 50 METS: 1.0 Total Dose: Peak Dose: Atropine: Double Product: 47354 BP Response: Stress Termination: INFUSION COMPLETE Stress Symptoms: CHEST TIGHTNESS Stress Summary: ECG ANALYSIS Resting ECG: Sinus rhythm. Normal conduction. No arrhythmias. Normal repolarization. Stress ECG: No ECG changes from baseline with Lexiscan infusion. CONCLUSIONS No ECG evidence of ischemia with Lexiscan infusion. Nuclear test results to follow. Dr. Stewart Farrell MD (Electronically Signed) Final Date: 19 March 2023 13:26
--- NOTE | 2023-03-23 16:51 | NM ---
EXAMINATION TYPE: NM stress lexiscan cardiolite DATE OF EXAM: 03/19/2023 COMPARISON: NONE HISTORY: Chest pain and hypertension history of [place] TECHNIQUE: After the intravenous administration of 10.2 mCi Tc 99m Sestamibi - Cardiolite resting SP ECT images acquired 65 minutes post injection. At peak stress 25.6 mCi Tc 99m Sestamibi - Stress images obtained 45 minutes post injection The patient was stressed with 0.4mg Lexiscan. FINDINGS: There is a defect along the lateral wall near the cardiac apex on the stress images. This area has a normal radiotracer distribution on resting images. Additionally, within the anterior wall near the ca rdiac base extending to the mid to distal portion of the anterior wall there is a defect on stress im ages. This is less apparent on the resting images suggestive for stress-induced ischemic changes. Col or maps suggests these areas are both reversible. Ejection fraction of 49% is minimally low. Normal greater than 50%. There may be some mild dyskinesia of the distal anterior wall IMPRESSION: 1. Stress-induced ischemic changes along the mid anterior wall and at the cardiac apex which appears to be reversible on rest. 2. Mild dyskinesia with a slightly low ejection fraction of 49%.
== END | disposition home or self-care (01) ==
LOC: RADNMMAIN 08:11
PROVIDERS: ATTEND Family Medicine
DX: I10 Essential (primary) hypertension (principal); G24.9 Dystonia, unspecified; I25.9 Chronic ischemic heart disease, unspecified; R55 Syncope and collapse; R07.9 Chest pain, unspecified
CPT/HCPCS: 93017; 93270; 78452; A9500

== ENCOUNTER → 2023-04-22 | Outpatient (CLI) | payer BC, MEDICARE ==
[2023-04-23 01:45] LABS: Basophils # (A) 0.04 X 10*3/uL (0.00-0.10); Basophils % (A) 0.6 %; Eosinophils # (A) 0.13 X 10*3/uL (0.04-0.35); Eosinophils % (A) 1.9 %; HCT 44.3 % (37.2-46.3); HGB 14.4 d/dL (12.0-15.0); Lymphocytes # (A) 1.59 X 10*3/uL (0.90-5.00); Lymphocytes % (A) 22.9 %; MCH 32.7 pg (27.0-32.0); MCHC 32.5 d/dL (32.0-37.0); MCV 100.7 FL (80.0-97.0); Mean Platelet Volume 10.6 FL (9.5-12.2); Monocytes # (A) 1.02 X 10*3/uL (0.20-1.00); Monocytes % (A) 14.7 %; NRBC Per 100 WBC 0 X 10*3/uL (0.00-0.01); Neutrophils # (A) 4.15 X 10*3/uL (1.80-7.70); Neutrophils % (A) 59.6 %; Platelet Count 312 X 10*3/uL (140-440); RDW 15.3 % (11.5-14.5); WBC 6.95 X 10*3/uL (4.50-10.00)
[2023-04-23 02:11] LABS: ALT 50 U/L (8-44); AST 41 U/L (13-35); Albumin 3.8 d/dL (3.8-4.9); Albumin/Globulin Ratio 1.06 Ratio (1.60-3.17); Alkaline Phosphatase 108 U/L (41-126); BUN/Creat Ratio 13.67 Ratio (12.00-20.00); Blood Urea Nitrogen 8.2 mg/dL (9.0-27.0); Calcium 8.6 mg/dL (8.7-10.3); Carbon Dioxide 24.4 mmol/L (21.6-31.8); Chloride 103 mmol/L (96-109); Chol/HDL Ratio 4.36 Ratio; Globulin 3.6 d/dL (1.6-3.3); Glucose 97 mg/dL (70-110); LDL Cholesterol,Calculated 57.1 mg/dL (0.0-131.0); Potassium 4.2 mmol/L (3.5-5.5); Sodium 138 mmol/L (135-145); T4, Free (Free Thyroxine) 1.32 ng/dL (0.80-1.80); Total Bilirubin 0.3 mg/dL (0.3-1.2); Total Protein 7.4 d/dL (6.2-8.2)
== END | disposition home or self-care (01) ==
LOC: LABWHC1 15:52
PROVIDERS: ATTEND Family Medicine
DX: I21.9 Acute myocardial infarction, unspecified (principal); E78.5 Hyperlipidemia, unspecified; I25.84 Coronary atherosclerosis due to calcified coronary lesion; R29.6 Repeated falls; R73.9 Hyperglycemia, unspecified; R55 Syncope and collapse
CPT/HCPCS: 36415; 80053; 80061; 82607; 83036; 84439; 84443; 85025

== ENCOUNTER 2023-04-24 06:33 | Day surgery (SDC) | payer BC, MEDICARE ==
[2023-04-17 17:42] VITALS: BMI 52.9
[~2023-04-24 06:33] MED LIST changes: +ALPRAZolam 0.25 MG TAB PO PRN; +ALPRAZolam 0.5 MG TAB PO PRN; +HEPARIN SODIUM,PORCINE (1 ML) 2,500 UNIT in SODIUM CHLORIDE 0.9% 250 ML IRRIGATION PRN; +HEPARIN SODIUM,PORCINE 10,000 UNIT in SODIUM CHLORIDE 0.9% 1,000 ML IRRIGATION PRN; +NITROGLYCERIN SL TABS 0.4 MG TAB SUBLINGUAL PRN; -REGADENOSON 0.4 MG/5 ML SYRINGE IV ONE; +SODIUM CHLORIDE 0.9% 1,000 ML in EMPTY BAG 1 BAG IV SCH
[2023-04-24] MEDS ORDERED: SODIUM CHLORIDE 0.9% 1,000 ML IV ONE (06:48)
[2023-04-24] MEDS ORDERED: ASPIRIN 325 MG TAB PO ONE (07:00)
[2023-04-24] MEDS ORDERED: ATORVASTATIN 80 MG TAB PO ONE (07:00)
[2023-04-24 07:01] VITALS: RESP 16; TEMP 98.6
[2023-04-24] MEDS ORDERED: VERAPAMIL 2.5 MG/ML 2 ML AMP ONE (07:50)
[2023-04-24] MEDS ORDERED: LIDOCAINE 1% INJ 10MG/ML (20 ML MDV) ONE (07:50)
[2023-04-24] MEDS ORDERED: fentaNYL (PF) 50 MCG/ML 2 ML AMP ONE (07:51)
[2023-04-24] MEDS ORDERED: HEPARIN SODIUM 1,000 UN/ML (10ML VL) ONE (07:51)
[2023-04-24] MEDS ORDERED: LIDOCAINE 1% INJ 10MG/ML (20 ML MDV) SQ ONE (07:55)
[2023-04-24] MEDS ORDERED: MIDAZOLAM 2 MG/2 ML VIAL IVP ONE (07:55)
[2023-04-24] MEDS ORDERED: fentaNYL (PF) 50 MCG/ML 2 ML AMP IVP ONE (08:00)
[2023-04-24] MEDS ORDERED: VERAPAMIL SYRINGE (5 MG/10 ML) INTRAARTER ONE (08:40)
[2023-04-24] MEDS ORDERED: HEPARIN SODIUM 1,000 UN/ML (10ML VL) IVP ONE (08:43)
[2023-04-24] MEDS ORDERED: IOPAMIDOL-370 100ML BTL INJ ONE (09:01)
--- NOTE | 2023-04-24 09:05 | P.CARDCATH ---
Date of Procedure: 04/24/23 Description of Procedure: Cardiac Catheterization: The patient is a 47-year-old female with a known history of CAD, followed by Dr. Dickinson, who has been complaining of dyspnea on exertion, underwent an MPI that showed evidence of stress-induced ischemia. Recommendations were made regarding cardiac catheterization, the risks and the complications were discussed with the patient who is in full understanding and agreement. Procedure Description: Patient was brought to matlab developer in fasting semi-sedated state after receiving Fentanyl and Benadryl achieiving moderate conscious sedated state. Attempt to cannulate the right radial artery by Dr. Dickinson were unsuccessful in passing the wire because of spasm. Using Xylocaine Anesthesia and Seldinger technique, a 6- Fijian sheath was introduced in the left radial artery . Subsequently, selective coronary angiography was performed using a 5-Fijian 4 bend Pro catheter. Multiple views of the coronary artery including hemiaxial views were obtained. The 5-Fijian pigtail catheter was used to cross the aortic valve and LVEDP was calculated. Following that, catheter and sheath were removed. Hemostasis was obtained with deployment of TR band . There was no immediate complication. Patient was returned to room in stable condition. Of note, the patient received a total of 5000 units of intravenous heparin as well as intra-arterial verapamil. Findings: Left main: This is a short size vessel that bifurcates immediately into LAD and left circumflex, main has no high-grade stenosis LAD: This is a large size vessel, reaching to the apex tapers down distally the ostium of the LAD has a 30-40% plaque with no high-grade stenosis Left circumflex: This is a large nondominant vessel giving rise to large obtuse marginal branch, the stented segment in the OM is patent with mild in-stent restenosis in the proximal left circumflex has intimal disease of 30-40% RCA: This is a dominant vessel, bifurcating to PDA and PLV. The proximal right coronary artery has 20-30% plaque with no high-grade stenosis Left Ventriculogram: Not performed Hemodynamics: There was no gradient across the aortic valve , LVEDP was 10-12 mmHg Conclusion: 1. Mild to moderate triple vessel disease 2. Mild in-stent restenosis of the left circumflex 3. Right dominance 4. Normal LVEDP Recommendations: The patient will continue with maximum medical therapy and depending on her progress further recommendations will be made. The findings and the recommendations were discussed with the patient and the family by Dr. Dickinson and they were in full understanding and agreement. Duration of sedation is 30 minutes.
[2023-04-24] MEDS ORDERED: RX INFO: IV CONTRAST WAS GIVEN 1 EACH MISC MISCELLANE PRN (09:10)
[2023-04-24] MEDS ORDERED: SODIUM CHLORIDE 0.9% 1,000 ML IV SCH (09:15)
[2023-04-24 16:11] VITALS: BP 110/67; PULSE 79
== END 2023-04-24 13:03 | disposition home or self-care (01) ==
LOC: CATHCVL 06:33
PROVIDERS: ATTEND Internal Medicine Cardiovascular Disease
DX: I25.10 Atherosclerotic heart disease of native coronary artery without angina pectoris (principal); I10 Essential (primary) hypertension; E78.5 Hyperlipidemia, unspecified; F17.210 Nicotine dependence, cigarettes, uncomplicated; Z79.899 Other long term (current) drug therapy
CPT/HCPCS: 93458; 81025; C1769 ×2; C1894; J2250; J2001; J3010; J1644; Q9967

== ENCOUNTER → 2023-05-29 | Outpatient (CLI) | payer BC, MEDICARE ==
--- NOTE | 2023-05-29 08:53 | US ---
EXAMINATION TYPE: US carotid duplex BILAT DATE OF EXAM: 05/29/2023 COMPARISON: 08/31/16 CLINICAL INDICATION: Female, 47 years old with history of R55 SYNCOPE AND COLLAPSE; syncope episode J une 30 TECHNIQUE: Carotid duplex ultrasound examination. Indirect Doppler criteria was utilized. FINDINGS: EXAM MEASUREMENTS: RIGHT: Peak Systolic Velocity (PSV) cm/sec ----- Right CCA: 118.6 ----- Right ICA: 121.5 ----- Right ECA: 162.8 ICA/CCA ratio: 1.0 RIGHT: End Diastole cm/sec ----- Right CCA: 35.7 ----- Right ICA: 34.4 ----- Right ECA: 36.7 LEFT: Peak Systolic Velocity (PSV) cm/sec ----- Left CCA: 121.1 ----- Left ICA: 101.7 ----- Left ECA: 157.1 ICA/CCA ratio: 0.8 LEFT: End Diastole cm/sec ----- Left CCA: 38.3 ----- Left ICA: 43.5 ----- Left ECA: 36.3 VERTEBRALS (direction of flow): Right Vertebral: Antegrade Left Vertebral: Antegrade Rhythm: Normal SENIOR INTEGRATION ARCHITECT NOTES: Mild atherosclerotic plaque noted bilaterally IMPRESSION: No evidence for hemodynamically significant stenosis. Criteria for Assigning % of Stenosis / Diameter reduction (Estimation based on the indirect measurements of the internal carotid artery velocities (ICA PSV). 1. Normal (no stenosis)=ICA PSV < 125 cm/s: ratio < 2.0: ICA EDV<40 cm/s. 2. Less than 50% stenosis=ICA PSV < 125 cm/s: ratio < 2.0: ICA EDV<40 cm/s. 3. 50 to 69% stenosis=ICA PSV of 125 to 230 cm/s: ration 2.0 ? 4.0: ICA EDV 40-100 cm/s. 4. Greater than 70% stenosis to near occlusion= ICA PSV > 230 cm/s: ratio > 4.0: ICA EDV > 100 cm/s. 5. Near occlusion= ICA PSV velocities may be low or undetectable: variable ratio and ICA EDV. 6. Total occlusion=unable to detect flow.
== END | disposition home or self-care (01) ==
LOC: RADUSWWP 07:28
PROVIDERS: ATTEND Family Medicine
DX: R55 Syncope and collapse (principal); R07.9 Chest pain, unspecified
CPT/HCPCS: 93880

== ENCOUNTER 2023-06-18 09:56 | Day surgery (SDC) | payer BC, MEDICARE ==
[2023-06-17 10:43] VITALS: BMI 53.4
[~2023-06-18 09:56] MED LIST changes: -ALPRAZolam 0.25 MG TAB PO PRN; -ALPRAZolam 0.5 MG TAB PO PRN; -HEPARIN SODIUM,PORCINE (1 ML) 2,500 UNIT in SODIUM CHLORIDE 0.9% 250 ML IRRIGATION PRN; -HEPARIN SODIUM,PORCINE 10,000 UNIT in SODIUM CHLORIDE 0.9% 1,000 ML IRRIGATION PRN; -NITROGLYCERIN SL TABS 0.4 MG TAB SUBLINGUAL PRN; +SODIUM CHLORIDE 0.9% 1,000 ML IV SCH; -SODIUM CHLORIDE 0.9% 1,000 ML in EMPTY BAG 1 BAG IV SCH
[2023-06-18 10:50] VITALS: BP 141/63; PULSE 72; RESP 18; TEMP 98.3
--- NOTE | 2023-06-18 15:05 | P.EPPROC ---
- EP Procedure Note Electrophysiology Procedure Note: Diagnosis Recurrent syncope Twelve-lead EKG shows sinus rhythm normal MA narrow QRS early repolarization abnormality inferolaterally Normal QT interval Patient was tilted upright at an angle of 70 per protocol Baseline blood pressure 108/52 mmHg Patient was tilted upright at an angle of 70 per protocol Brief dip in blood pressure 97 mmHg systolic with immediate recovery within 2 minutes. Patient fell lightheaded when she stood up Blood pressure remained in the normal range with heart rates in the 70s She complained of being lightheaded and dizzy Sometime she felt warm, hot flash At those times that [employer] blood pressure was normal Impression Normal twelve-lead EKG Orthostatic hypertension, brief and resolved quickly within 2 minutes Normal heart rate and blood pressure response to upright tilting Symptoms did not correlate with any drop in blood pressure or arrhythmias
== END 2023-06-18 12:10 | disposition home or self-care (01) ==
LOC: CATHEP 09:56
PROVIDERS: ATTEND Internal Medicine Clinical Cardiac Electrophysiology
DX: R55 Syncope and collapse (principal); I10 Essential (primary) hypertension; E78.5 Hyperlipidemia, unspecified; F17.210 Nicotine dependence, cigarettes, uncomplicated; Z79.899 Other long term (current) drug therapy
CPT/HCPCS: 81025; 93660

== ENCOUNTER → 2023-08-07 | Day surgery (SDC) | payer BC, MEDICARE ==
[~2023-08-07] MED LIST changes: +IV FLUID CONTINUATION 1,000 ML IV ONE; +LACTATED RINGERS 1,000 ML IV SCH; +LIDOCAINE 1% (10MG/ML) FOR IV START INTRADERMA PRN; +PROPOFOL 10 MG/ML 20 ML VIAL IV ONE; -SODIUM CHLORIDE 0.9% 1,000 ML IV SCH
[2023-08-07 13:58] VITALS: TEMP 97.1
--- NOTE | 2023-08-07 15:00 | P.PCN ---
Date of Procedure: 08/07/23 Procedure(s) Performed: BRIEF HISTORY: Patient is a 47-year-old pleasant female scheduled for an elective colonoscopy as a part of screening for colon cancer. PROCEDURE PERFORMED: Colonoscopy with snare polypectomy. PREOPERATIVE DIAGNOSIS: Screening for colon cancer. IV sedation per Anesthesia. PROCEDURE: After informed consent was obtained, the patient, was brought into the endoscopy unit. IV sedation was administered by Anesthesia under continuous monitoring. Digital rectal examination was normal. Initially the Olympus CF-160 flexible video colonoscope was then inserted in the rectum, gradually advanced into the cecum without any difficulty. Careful examination was performed as the scope was gradually being withdrawn. Ileocecal valve and the appendiceal orifice were visualized and appeared normal. Prep was excellent. Mucosa of the cecum, ascending colon, transverse colon, descending colon, sigmoid colon, and rectum appeared normal. In the distal rectum there was a 7 mm polyp that was removed by snare polypectomy. Retroflexion was performed in the rectum and no lesions were seen. The patient tolerated the procedure well. IMPRESSION: 7 mm distal rectal polyp status post polypectomy Rest of the colon appeared normal RECOMMENDATIONS: Findings of this examination were discussed with the patient as well as a family. She was advised to follow with the biopsy results. If the biopsy result adenoma she can have a repeat coloscopy in 5 years..
[2023-08-07 15:13] VITALS: RESP 16
[2023-08-07 15:38] VITALS: BP 141/66; PULSE 67
== END ==
LOC: ORWHC2ENDO 13:01
PROVIDERS: ATTEND Internal Medicine Gastroenterology
DX: Z12.11 Encounter for screening for malignant neoplasm of colon (principal); D12.8 Benign neoplasm of rectum; I11.0 Hypertensive heart disease with heart failure; I50.9 Heart failure, unspecified; E78.5 Hyperlipidemia, unspecified; J45.909 Unspecified asthma, uncomplicated; F41.9 Anxiety disorder, unspecified; F32.A Depression, unspecified; F17.200 Nicotine dependence, unspecified, uncomplicated; Z86.73 Personal history of transient ischemic attack (TIA), and cerebral infarction without residual deficits; Z80.0 Family history of malignant neoplasm of digestive organs; Z79.899 Other long term (current) drug therapy
CPT/HCPCS: 45385; 88305; J2704

== ENCOUNTER 2023-08-13 12:36 | Day surgery (SDC) | payer BC, MEDICARE ==
[2023-08-13] MEDS ORDERED: ALPRAZolam 0.5 MG TAB PO PRN (13:17)
[2023-08-13 13:52] VITALS: RESP 16; TEMP 97.9
[2023-08-13 14:17] VITALS: BP 143/65; PULSE 68
--- NOTE | 2023-08-13 14:56 | US ---
ULTRASOUND GUIDED CORE BIOPSY LEFT PAROTID MASS: CLINICAL HISTORY: Left parotid mass FINDINGS: The procedure was explained to the patient. The risks, complications, benefits and alternatives were discussed and any questions were answered. Informed consent was obtained. Patient was placed supin e on the ultrasound table and prepped and draped in the usual sterile fashion. Utilizing a 18 gauge needle, two passes were made into the left parotid mass. Patient was stable throughout the procedure. Pathology is pending. All elements of maximal barrier and sterile technique were utilized. IMPRESSION: 1. Successful ultrasound guided core biopsy left parotid mass.
== END 2023-08-13 14:15 | disposition home or self-care (01) ==
LOC: RADPROMAIN 12:36
PROVIDERS: ATTEND Otolaryngology
DX: R22.1 Localized swelling, mass and lump, neck (principal); K21.9 Gastro-esophageal reflux disease without esophagitis; E78.5 Hyperlipidemia, unspecified; Z90.49 Acquired absence of other specified parts of digestive tract; Z95.5 Presence of coronary angioplasty implant and graft; Z98.890 Other specified postprocedural states; Z79.899 Other long term (current) drug therapy
CPT/HCPCS: 21550; 88305

== ENCOUNTER 2023-08-26 19:52 | Emergency (ER) | payer BC, MEDICARE ==
[2023-08-26 20:22] VITALS: RESP 18; TEMP 98.1
[2023-08-26] MEDS ORDERED: SODIUM CHLORIDE 0.9% 1,000 ML IV STA (20:46)
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
--- NOTE | 2023-08-26 21:12 | XR ---
EXAMINATION TYPE: XR chest 2V DATE OF EXAM: 08/26/2023 9:08 PM CLINICAL INDICATION:Female, 47 years old with history of syncope. COMPARISON: Chest radiograph 02/20/2023. TECHNIQUE: XR chest 2V Frontal and lateral views of the chest. FINDINGS: Lungs/Pleura: Subsegmental atelectasis is present in the lung bases. No evidence of pleural effusion or pneumothorax. Pulmonary vascularity: Unremarkable. Heart/mediastinum: Cardiomediastinal silhouette is unremarkable. Musculoskeletal: No acute osseous pathology. IMPRESSION: No acute cardiopulmonary disease/process.
--- NOTE | 2023-08-26 21:13 | XR ---
EXAMINATION TYPE: XR hand complete LT DATE OF EXAM: 08/26/2023 9:10 PM CLINICAL INDICATION:Female, 47 years old with history of syncope, left hand pain. COMPARISON: None TECHNIQUE: Frontal, lateral and oblique views of the left hand were obtained. FINDINGS: Normal alignment of the visualized joints. No acute osseous pathology is identified. No e vidence of soft tissue swelling. IMPRESSION: No acute osseous pathology.
[2023-08-26 21:25] LABS: Basophils # (A) 0.1 k/uL (0-0.2); Basophils % (A) 0 %; Eosinophils # (A) 0.2 k/uL (0-0.7); Eosinophils % (A) 1 %; HCT 44.1 % (34.0-46.0); HGB 14.5 gm/dL (11.4-16.0); Lymphocytes # (A) 1.9 k/uL (1.0-4.8); Lymphocytes % (A) 12 %; MCH 31.9 pg (25.0-35.0); MCHC 32.8 g/dL (31.0-37.0); MCV 97.2 fL (80.0-100.0); Mean Platelet Volume 8.4; Monocytes # (A) 0.9 k/uL (0-1.0); Monocytes % (A) 6 %; Neutrophils # (A) 13.3 k/uL (1.3-7.7); Neutrophils % (A) 79 %; Platelet Count 304 k/uL (150-450); RBC 4.54 m/uL (3.80-5.40); RDW 13.8 % (11.5-15.5); WBC 16.7 k/uL (3.8-10.6)
[2023-08-26 21:51] LABS: ALT 38 U/L (4-34); African American GFR (CKD) 66 (>60 ml/min/1.73 sqM); Albumin 3.8 g/dL (3.5-5.0); Anion Gap 17 mmol/L; Blood Urea Nitrogen 17 mg/dL (7-17); Calcium 8.7 mg/dL (8.4-10.2); Carbon Dioxide 13 mmol/L (22-30); Chloride 105 mmol/L (98-107); Glucose 168 mg/dL (74-99); Non-African American GFR(CKD) 57 (>60 ml/min/1.73 sqM); Sodium 135 mmol/L (137-145); Total Bilirubin 0.7 mg/dL (0.2-1.3); Total Protein 8.1 g/dL (6.3-8.2)
[2023-08-26 21:59] LABS: AST 38 U/L (14-36); Alkaline Phosphatase 134 U/L (38-126); Potassium 4.5 mmol/L (3.5-5.1)
[2023-08-26 22:03] LABS: Prothrombin Time 10.8 sec (10.0-12.5)
[2023-08-26 22:10] LABS: Partial Thromboplastin Time 18.7 sec (22.0-30.0)
[2023-08-26 23:42] LABS: Appearance,Urine Turbid (Clear); Bacteria,Urine Occasional /hpf; Bilirubin,Urine Negative (Negative); Blood,Urine Negative (Negative); Color,Urine Yellow; Glucose,Urine (UA) Trace (Negative); Hyaline Casts,Urine 104 /lpf (0-2); Ketones,Urine Negative (Negative); Leukocyte Esterase,Urine Moderate (Negative); Mucus,Urine Many /hpf; Nitrite,Urine Negative (Negative); PH, Urine 5.5 (5.0-8.0); Protein,Urine 1+ (Negative); RBC,Urine 3 /hpf (0-5); Specific Gravity,Urine 1.017 (1.001-1.035); Squamous Epithelial Cell,Urine 61 /hpf (0-4); Urobilinogen,Urine <2.0 mg/dL (<2.0); WBC,Urine 15 /hpf (0-5)
[2023-08-26 23:54] VITALS: BP 117/70; PULSE 72
== END 2023-08-26 23:51 | disposition home or self-care (01) ==
LOC: EC 19:52
DX: R55 Syncope and collapse (principal); I95.9 Hypotension, unspecified; I11.0 Hypertensive heart disease with heart failure; I50.9 Heart failure, unspecified; J45.909 Unspecified asthma, uncomplicated; I25.10 Atherosclerotic heart disease of native coronary artery without angina pectoris; I25.2 Old myocardial infarction; K21.9 Gastro-esophageal reflux disease without esophagitis; E78.5 Hyperlipidemia, unspecified; Z86.73 Personal history of transient ischemic attack (TIA), and cerebral infarction without residual deficits; F41.9 Anxiety disorder, unspecified; F32.A Depression, unspecified; F17.200 Nicotine dependence, unspecified, uncomplicated; Z79.02 Long term (current) use of antithrombotics/antiplatelets; Z79.82 Long term (current) use of aspirin; Z79.899 Other long term (current) drug therapy
CPT/HCPCS: 36415; 71046; 80053; 81001; 83735; 84484; 85025; 85610; 85730; 87086; 93005; 96360; 96361; 99285